=== PATIENT | female | born 1935 | race Caucasian/White ===

== ENCOUNTER 2016-09-18 16:00 | Inpatient (IN) | payer MEDICARE ==
[2016-09-18] MEDS ORDERED: NORCO 5/325 MG PO PRN (16:46)
[2016-09-18] MEDS ORDERED: Phenergan 25 MG INJ IV PRN (16:53)
[2016-09-18] MEDS ORDERED: Sodium Chloride 0.9% 10 ML FLUSH Syringe IJ PRN (16:53)
[2016-09-18 16:57] LABS: BASOPHIL % 0.4 % (0.0-0.4); Eosinophil % 4.6 % (0.00-5.0); Granulocytes % 59.8 % (36.0-66.0); Lymphocytes % 19.1 % (24.0-44.0); Mean Cell Volume 94.1 fl (78-100); Mean Corpuscular Hemoglobin 29.6 pg (26-32); Mean Platelet Volume 9.6 fl (6-9.5); Monocytes % 16.1 % (0.0-12.0); Platelet Count 201 K/mm3 (150-450); Red Blood Count 3.58 M/mm3 (4.1-5.4); White Blood Count 5.7 K/mm3 (4.0-10.5)
[2016-09-18 17:11] LABS: INR 1.03 (0.8-3.0); PROTIME 11.5 SECONDS (9.95-12.35)
[2016-09-18 17:12] LABS: ALBUMIN 3.9 g/dL (3.4-5.0); ANION GAP 12.8 MEQ/L (5-15); BILIRUBIN,TOTAL 0.6 mg/dL (0.2-1.0); Carbon Dioxide 29.9 mEq/L (21-32); Total Protein 7.7 gm/dL (6.4-8.2)
--- NOTE | 2016-09-18 17:22 | XRAY ---
Indication: Cellulitis. Comparison: September 12, 2016 3 nonweightbearing nonweightbearing right foot unchanged again with osteopenia, soft tissue swelling, heel spurs, midtarsal degenerative changes, and scattered vascular calcifications. No new/acute bony, articular, or soft tissue abnormalities.
[2016-09-18] MEDS: CLINDAMYCIN-D5W 600 MG/50 ML*** 50 ML IV SCH ×2 (17:25→22:06)
[2016-09-18] MEDS ORDERED: BABY ASPIRIN 81 MG CHEW PO SCH (22:00)
[2016-09-18] MEDS: PLAVIX 75 MG Tablet PO SCH (22:05)
[2016-09-18] MEDS: Zestril 5 MG PO SCH (22:05)
[2016-09-18] MEDS: FISH OIL 1,000 MG CAPSULE PO SCH (22:05)
[2016-09-18] MEDS: Sodium Chloride 0.9% 10 ML FLUSH Syringe IJ SCH (22:07)
[2016-09-18] MEDS: TYLENOL 325 MG PO PRN (22:20)
[2016-09-19] MEDS: CLINDAMYCIN-D5W 600 MG/50 ML*** 50 ML IV SCH ×3 (05:17→22:57)
[2016-09-19] MEDS: TYLENOL 325 MG PO PRN (05:17)
[2016-09-19] MEDS: Sodium Chloride 0.9% 10 ML FLUSH Syringe IJ SCH ×3 (05:19→23:00)
[2016-09-19] MEDS ORDERED: NON-FORMULARY ITEM (Bumetanide [Bumex] 2 MG) PO PRN (07:09)
--- NOTE | 2016-09-19 08:29 | PCM.HP ---
History of Present Illness - Chief Complaint Chief Complaint: rt foot cellultis Date: 09/19/16 History of Present Illness: is a 81 year old female. slightly better cellulitis today very tender and hot still the redness had receeded some it was worsening over just the last couple of days and she couldn't walk on it was spreading rapidly up her leg. - Review of Systems Constitutional: Fatigue, No Fever, No Chills Eyes: No Symptoms Ears, Nose, & Throat: No Symptoms Respiratory: No Cough, No Short Of Breath Cardiac: No Chest Pain, No Edema, No Syncope Abdominal/Gastrointestinal: No Abdominal Pain, No Nausea, No Vomiting, No Diarrhea Genitourinary Symptoms: No Dysuria Musculoskeletal: No Back Pain, No Neck Pain Skin: Cellulitis, No Rash Neurological: No Dizziness, No Focal Weakness, No Sensory Changes Psychological: No Symptoms Endocrine: No Symptoms Hematologic/Lymphatic: No Symptoms Immunological/Allergic: No Symptoms Medications & Allergies Home Medications: Home Medication List Aspirin 81 mg PO HS 09/18/16 [History Confirmed 09/18/16] Beta-Carotene [Beta Carotene] 10,000 unit PO 09/18/16 [History Confirmed 06/25] Bumetanide [Bumex] 2 mg PO DAILY PRN PRN 09/18/16 [History Confirmed 09/18/16] Carvedilol 12.5 mg [Coreg 12.5 mg] 0.5 mg PO DAILY 09/18/16 [History Confirmed 09/18/16] Cholecalciferol (Vitamin D3) [D-2000] 2,000 unit PO 09/18/16 [History Confirmed 09/18/16] Clopidogrel Bisulfate 75 mg [PLAVIX 75 MG Tablet] 75 mg PO 09/18/16 [ History Confirmed 09/18/16] Herbal Drugs [Colon Herbal Cleanser] 1 tab PO 09/18/16 [History Confirmed 06/25] Lisinopril [Zestril] 2.5 mg PO 09/18/16 [History Confirmed 09/18/16] Lutein 6 mg PO 09/18/16 [History Confirmed 09/18/16] Multivitamin/Iron/Folic Acid [Centrum Complete Multivit Tab] 1 each PO [History Confirmed 09/18/16] [place]-3 Fatty Acids [[place]-3] 1,000 mg PO HS 09/18/16 [History Confirmed ] Prednisone 10 mg [Deltasone 10 mg] 10 mg PO DAILY PRN PRN 09/18/16 [ History Confirmed 09/18/16] Tramadol HCl 50 mg [Ultram 50 mg] 2 tab PO Q8HPRN PRN 09/18/16 [History Confirmed 09/18/16] Ubidecarenone [Co Q-10] 100 mg PO HS 09/18/16 [History Confirmed 09/18/16] Allergies/Adverse Reactions: Allergies Allergy/AdvReac Type Severity Reaction Status Date / Time cephalexin [From Keflex] Allergy Intermediate Verified 09/18/16 16:31 - Past Medical History Past Medical History: Yes Neurological History: Dementia ENT History: Cataracts Cardiac History: Angina, Congestive Heart Failure, Hypertension, Myocardial Infarction ([place]) Respiratory History: Bronchitis Endocrine Medical History: Diabetes Type II Musculoskelatal History: Arthritis, Osteoporosis GI Medical History: Gallbladder Disease, Hernia History: Renal Disease Pyscho-Social History: No Pertinent History Reproductive Disorders: Fibroids Comment: anemia - Female History Are you now?: No - Past Surgical History Past Surgical History: Yes Neuro Surgical History: No Pertinent History Cardiac History: Cardiac Catheterization, Cardiac Stent Respiratory Surgery: No Pertinent History GI Surgical History: Cholecystectomy, Hernia Repair Genitourinary Surgical Hx: No Pertinent History Musculskeletal Surgical Hx: No Pertinent History Female Surgical History: Hysterectomy Other Surgical History: cardic stent x 2 - Social History Smoking Status: Never smoker Alcohol: None Drug Use: none - Physical Exam Vital Signs: Vital Signs - 24 hr Temp Pulse Resp BP Pulse Ox 09/19/16 07:20 97.8 F 80 18 118/64 96 09/19/16 04:00 98.3 F 75 20 113/56 95 09/19/16 00:00 98.7 F 75 20 91/53 95 09/18/16 20:00 98.5 F 80 16 96/52 97 09/18/16 17:43 98 F 85 18 113/57 94 L 09/18/16 16:41 98 F 85 18 113/57 94 L General Appearance: no apparent distress, alert, obese Neurologic Exam: alert, oriented x 3, cooperative, normal mood/affect, nml cerebellar function, nml station & gait, sensation nml, No motor deficits Eye Exam: PERRL/EOMI, eyes nml inspection Ears, Nose, Throat Exam: normal ENT inspection, TMs normal, pharynx normal, moist mucous membranes Neck Exam: normal inspection, non-tender, supple, full range of motion Respiratory Exam: normal breath sounds, lungs clear, No respiratory distress Cardiovascular Exam: regular rate/rhythm, normal heart sounds, normal peripheral pulses, murmur Gastrointestinal/Abdomen Exam: soft, normal bowel sounds, No tenderness, No mass Back Exam: normal inspection, normal range of motion, No CVA tenderness, No vertebral tenderness Extremity Exam: normal inspection, normal range of motion, pelvis stable Skin Exam: normal color, warm, dry, other (right foot with bruising swelling warm and tender. about 8 cm extension proximal to the malleolus) Lymphatic Exam: No adenopathy Results - Labs Lab/Micro Results: Lab Results-Last 24 Hours 09/18/16 09/18/16 09/18/16 Range/Units 16:00 16:00 16:00 WBC 5.7 (4.0-10.5) K/mm3 RBC 3.58 L (4.1-5.4) M/mm3 Hgb 10.6 L (12.0-16.0) gm/dl Hct 33.7 L (35-47) % MCV 94.1 (78-100) fl MCH 29.6 (26-32) pg MCHC 31.5 L (32-36) g/dl RDW 14.0 (11.5-14.0) % Plt Count 201 (150-450) K/mm3 MPV 9.6 H (6-9.5) fl Gran % 59.8 (36.0-66.0) % Lymphocytes % 19.1 L (24.0-44.0) % Monocytes % 16.1 H (0.0-12.0) % Eosinophils % 4.6 (0.00-5.0) % Basophils % 0.4 (0.0-0.4) % Basophils # 0.02 (0-0.4) INR 1.03 (0.8-3.0) Sodium 138 (136-145) mEq/L Potassium 4.0 (3.5-5.1) mEq/L Chloride 99 (98-107) mEq/L Carbon Dioxide 29.9 (21-32) mEq/L Anion Gap 12.8 (5-15) MEQ/L BUN 36 H (9-20) mg/dL Creatinine 1.50 H (0.55-1.30) mg/dl Estimated GFR 35 ML/MIN Glucose 104 (70-110) MG/DL Calcium 9.0 (8.5-10.1) mg/dL Total Bilirubin 0.6 (0.2-1.0) mg/dL AST 21 (15-37) U/L ALT 13 (12-78) U/L Alkaline Phosphatase 88 (46-116) U/L Serum Total Protein 7.7 (6.4-8.2) gm/dL Albumin 3.9 (3.4-5.0) g/dL - Radiology Impressions Radiology Exams & Impressions: Radiology Procedures Category Date Time Status FOOT (MINIMUM 3 VIEWS) Routine Exams 09/18/16 17:00 Completed Assessment/Plan (1) Cellulitis and abscess of foot Current Visit: Yes Status: Acute Assessment & Plan: continue the clindamycin and elevation IV if continues to improve may be able to go home tomorrow on oral if worsens change to vanc Code(s): L03.119 - CELLULITIS OF UNSPECIFIED PART OF LIMB; L02.619 - CUTANEOUS ABSCESS OF UNSPECIFIED FOOT (2) CKD (chronic kidney disease) Current Visit: Yes Status: Chronic Code(s): N18.9 - CHRONIC KIDNEY DISEASE, UNSPECIFIED (3) CHF (congestive heart failure) Current Visit: Yes Status: Chronic Code(s): I50.9 - HEART FAILURE, UNSPECIFIED (4) HTN (hypertension) Current Visit: Yes Status: Chronic Code(s): I10 - ESSENTIAL (PRIMARY) HYPERTENSION (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
[2016-09-19] MEDS: Coreg 6.25 MG PO SCH (09:26)
[2016-09-19] MEDS: THERAGRAN MULTIVITAMIN PO SCH (09:26)
[2016-09-19] MEDS: ULTRAM 50 MG PO PRN ×3 (09:27→23:01)
[2016-09-19] MEDS ORDERED: COREG 12.5 MG PO SCH (10:00)
[2016-09-19] MEDS: MEDICATION INTERVENTION MC SCH ×4 (12:01→12:02)
[2016-09-19] MEDS ORDERED: NON-FORMULARY ITEM (Cholecalciferol (Vitamin D3) [D3-2000] 2,000 UNIT) PO SCH (22:00)
[2016-09-19] MEDS ORDERED: UBIDECARENONE 100 MG PO SCH (22:00)
[2016-09-19] MEDS ORDERED: [UNRECOGNIZED DRUG - OTHER] PO SCH (22:00)
[2016-09-19] MEDS ORDERED: LUTEIN 6 MG PO SCH (22:00)
[2016-09-19] MEDS ORDERED: IRON PO SCH (22:00)
[2016-09-19] MEDS ORDERED: BETA CAROTENE 10000 UNIT PO SCH (22:00)
[2016-09-19] MEDS ORDERED: MULTIVITAMIN PO SCH (22:00)
[2016-09-19] MEDS ORDERED: FOLIC ACID PO SCH (22:00)
[2016-09-19] MEDS ORDERED: HERBAL DRUGS PO SCH (22:00)
[2016-09-19] MEDS: FISH OIL 1,000 MG CAPSULE PO SCH (22:57)
[2016-09-19] MEDS: ECOTRIN 81 MG PO SCH (22:57)
[2016-09-19] MEDS: PLAVIX 75 MG Tablet PO SCH (22:58)
[2016-09-19] MEDS: Zestril 5 MG PO SCH (23:00)
[2016-09-19] MEDS: VITAMIN D PO SCH (23:00)
[2016-09-20] MEDS: Sodium Chloride 0.9% 10 ML FLUSH Syringe IJ SCH ×3 (06:10→21:42)
[2016-09-20] MEDS: CLINDAMYCIN-D5W 600 MG/50 ML*** 50 ML IV SCH ×3 (06:10→21:41)
[2016-09-20] MEDS: ULTRAM 50 MG PO PRN ×3 (06:10→21:43)
[2016-09-20] MEDS ORDERED: XYLOCAINE 1% HCL 20 ML MDV IJ ONE (09:01)
[2016-09-20] MEDS: MORPHINE SULFATE 2 MG INJ IV PRN (09:34)
[2016-09-20] MEDS: THERAGRAN MULTIVITAMIN PO SCH (09:45)
[2016-09-20] MEDS: BUMEX 1 MG PO PRN (09:45)
[2016-09-20] MEDS: Coreg 6.25 MG PO SCH (09:45)
[2016-09-20] MEDS: MEDICATION INTERVENTION MC SCH ×4 (09:48→09:49)
--- NOTE | 2016-09-20 10:09 | PCM.NOTE ---
Date and Time: 09/20/16 1005 Subjective Assessment: the pain on the top of the right foot is still very severe but the pain on the bottom and up the leg is much better swelling is improving except on the top of the foot tolerating po better now Objective Exam General Appearance: no apparent distress Neurologic Exam: alert, oriented x 3, cooperative, normal mood/affect Skin Exam: warm, dry, other (right foot with warmth redness bruising and fluctuant area of tendenress on the dorsal aspect about 4cm X2 cm very tender) Neck Exam: non-tender, supple Respiratory Exam: normal breath sounds, lungs clear Cardiovascular Exam: regular rate/rhythm, normal peripheral pulses, murmur Gastrointestinal/Abdomen Exam: soft, normal bowel sounds, No tenderness Extremity Exam: No calf tenderness OBJECTIVE DATA Vital Signs: Vital Signs - 24 hr Temp Pulse Resp BP Pulse Ox 09/20/16 07:20 98.2 F 71 20 117/59 95 09/20/16 04:00 98.2 F 79 20 98/56 96 09/20/16 00:00 97.8 F 93 H 20 100/54 95 09/19/16 20:00 97.9 F 104 H 18 95/46 95 09/19/16 15:54 98.3 F 88 20 114/58 97 09/19/16 12:41 97.8 F 80 20 111/54 97 09/19/16 11:51 84 111/54 Pain Assessment - Last Documented Pain Intensity 4 Pain Scale Used 0-10 Pain Scale Intake and Output: Intake & Output 09/17/16 09/18/16 09/19/16 09/20/16 11:59 11:59 11:59 11:59 Intake Total 610 760 Output Total 600 Balance 10 760 Weight 91.654 kg Radiology Exams: Radiology Procedures Category Date Time Status FOOT (MINIMUM 3 VIEWS) Routine Exams 09/18/16 17:00 Completed Assessment/Plan (1) Cellulitis and abscess of foot Current Visit: Yes Status: Acute Assessment & Plan: right foot with apparent infected hematoma discussed options with patient area was cleaned with Hibiclens and anesthetized with 3 mL of 1% lidocaine and sterile technique used to make incision about 1.5 cm with 11 blade and expressed old and new bloody material. The cavity was explored as tolerated with curved hemostat with removal of parts of the hematoma. The full hematoma was not excised as concern with her being able to heal with a large incision. Culture of wound was sent. Sterile pressure dressing applied. Tolerated procedure well. continue clindamycin IV keep foot elevated. 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
[2016-09-20] MEDS: FISH OIL 1,000 MG CAPSULE PO SCH (21:42)
[2016-09-20] MEDS: VITAMIN D PO SCH (21:42)
[2016-09-20] MEDS: ECOTRIN 81 MG PO SCH (21:42)
[2016-09-20] MEDS: PLAVIX 75 MG Tablet PO SCH (21:42)
[2016-09-20] MEDS: Zestril 5 MG PO SCH (21:43)
[2016-09-21] MEDS: ULTRAM 50 MG PO PRN ×3 (04:31→20:59)
[2016-09-21] MEDS: CLINDAMYCIN-D5W 600 MG/50 ML*** 50 ML IV SCH ×3 (05:26→22:41)
[2016-09-21] MEDS: Sodium Chloride 0.9% 10 ML FLUSH Syringe IJ SCH ×2 (05:31→22:48)
[2016-09-21] MEDS: MORPHINE SULFATE 2 MG INJ IV PRN (08:55)
[2016-09-21] MEDS: THERAGRAN MULTIVITAMIN PO SCH (08:55)
[2016-09-21] MEDS: Coreg 6.25 MG PO SCH (08:55)
[2016-09-21] MEDS: MEDICATION INTERVENTION MC SCH ×4 (08:58→08:59)
--- NOTE | 2016-09-21 13:23 | PCM.NOTE ---
Date and Time: 09/21/16 1319 Subjective Assessment: the redness a little better the pain a little better she is still in severe pain in the foot difficulty attemptint to ambulate she was able to keep it wrapped some bloody drainage minimal now. the swelling is improving just a little after the I and D Objective Exam General Appearance: no apparent distress, obese Neurologic Exam: alert, oriented x 3, cooperative Skin Exam: warm, other (Hot red very tender top of the foot but no redness in the ankle now it is very tender minimal amount of bleeding from the inciison now ) Eye Exam: pale conjunctivae, No scleral icterus Neck Exam: non-tender, supple Respiratory Exam: normal breath sounds Cardiovascular Exam: regular rate/rhythm, normal heart sounds Gastrointestinal/Abdomen Exam: soft, normal bowel sounds, tenderness Extremity Exam: pedal edema (right) OBJECTIVE DATA Vital Signs: Vital Signs - 24 hr Temp Pulse Resp BP Pulse Ox 09/21/16 12:56 98.3 F 78 20 114/68 96 09/21/16 07:15 98.2 F 76 20 112/68 96 09/21/16 05:00 104/56 09/21/16 04:00 98.4 F 80 18 87/52 96 09/21/16 00:00 98.3 F 77 18 132/59 95 09/20/16 20:00 98.3 F 80 18 96/51 94 L 09/20/16 16:09 98.3 F 60 20 101/55 94 L Pain Assessment - Last Documented Pain Intensity 8 Pain Scale Used 0-10 Pain Scale Intake and Output: Intake & Output 09/19/16 09/20/16 09/21/16 09/22/16 11:59 11:59 11:59 11:59 Intake Total 610 1000 760 Output Total 600 600 700 Balance 10 400 60 Weight 91.654 kg Assessment/Plan (1) Cellulitis and abscess of foot Current Visit: Yes Status: Acute Assessment & Plan: awaiting the wound culture very slow improvement she still can barely walk and lives at home alone unable to care for herself right now each day has shown a little improvement keep elevated stay with clinda pending the culture. 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
[2016-09-21] MEDS: FISH OIL 1,000 MG CAPSULE PO SCH (22:41)
[2016-09-21] MEDS: VITAMIN D PO SCH (22:41)
[2016-09-21] MEDS: PLAVIX 75 MG Tablet PO SCH (22:41)
[2016-09-21] MEDS: DELTASONE 10 MG PO PRN (22:41)
[2016-09-21] MEDS: Zestril 5 MG PO SCH (22:42)
[2016-09-21] MEDS: ECOTRIN 81 MG PO SCH (22:42)
[2016-09-22] MEDS: ULTRAM 50 MG PO PRN ×2 (04:35→10:30)
[2016-09-22] MEDS: CLINDAMYCIN-D5W 600 MG/50 ML*** 50 ML IV SCH (06:24)
[2016-09-22] MEDS: Sodium Chloride 0.9% 10 ML FLUSH Syringe IJ SCH (06:24)
[2016-09-22 08:56] VITALS: O2SAT 97
[2016-09-22] MEDS: Coreg 6.25 MG PO SCH (09:43)
[2016-09-22] MEDS: THERAGRAN MULTIVITAMIN PO SCH (09:44)
[2016-09-22] MEDS: DELTASONE 10 MG PO PRN (09:51)
[2016-09-22] MEDS: BUMEX 1 MG PO PRN (09:51)
[2016-09-22] MEDS: MEDICATION INTERVENTION MC SCH ×4 (10:52→10:53)
--- NOTE | 2016-09-22 11:34 | PCM.DCORD ---
- Discharge Discharge Date: 09/22/16 Disposition: Home, Self-Care Condition: Stable Prescriptions: Clindamycin HCl 300 mg PO QID #40 capsule Medications: Home Medications Aspirin 81 mg PO HS 09/18/16 [Confirmed 09/18/16] Beta-Carotene [Beta Carotene] 10,000 unit PO HS 09/18/16 [Confirmed 09/18/16] Bumetanide [Bumex] 1 mg PO DAILY 09/18/16 [Confirmed 09/22/16] Carvedilol 12.5 mg [Coreg 12.5 mg] 0.5 mg PO DAILY 09/18/16 [Confirmed 06/25] Cholecalciferol (Vitamin D3) [D-2000] 2,000 unit PO HS 09/18/16 [Confirmed 09/18] Clopidogrel Bisulfate 75 mg [PLAVIX 75 MG Tablet] 75 mg PO HS 09/18/16 [ Confirmed 09/18/16] Herbal Drugs [Colon Herbal Cleanser] 1 tab PO HS 09/18/16 [Confirmed 09/18/16] Lisinopril [Zestril] 2.5 mg PO HS 09/18/16 [Confirmed 09/18/16] Lutein 6 mg PO 09/18/16 [Confirmed 09/18/16] Multivitamin/Iron/Folic Acid [Centrum Complete Multivit Tab] 1 each PO HS [Confirmed 09/18/16] [place]-3 Fatty Acids [[place]-3] 1,000 mg PO 09/18/16 [Confirmed 09/18/16] Prednisone 10 mg [Deltasone 10 mg] 10 mg PO DAILY PRN PRN 09/18/16 [ Confirmed 09/18/16] Tramadol HCl 50 mg [Ultram 50 mg] 2 tab PO Q8HPRN PRN 09/18/16 [Confirmed 09/18/16] Ubidecarenone [Co Q-10] 100 mg PO HS 09/18/16 [Confirmed 09/18/16] Active Inpatient Medications Acetaminophen (Tylenol 325 Mg) 650 mg PO Q4H/PRN PRN PRN Reason: TEMP >101 Stop: 10/18/16 16:52 Last Admin: 09/19/16 05:17 Dose: 650 mg Aspirin (Ecotrin 81 Mg) 81 mg PO [facility] Stop: 10/19/16 21:59 Last Admin: 09/21/16 22:42 Dose: 81 mg Bumetanide (Bumex 1 Mg) 2 mg PO DAILY PRN PRN PRN Reason: SWELLING Stop: 10/19/16 07:16 Last Admin: 09/22/16 09:51 Dose: 1 mg Carvedilol (Coreg 6.25 Mg) 6.25 mg PO DAILY [facility] Stop: 10/19/16 09:59 Last Admin: 09/22/16 09:43 Dose: 6.25 mg Cholecalciferol (Vitamin D) 2,000 unit PO [facility] Stop: 10/19/16 21:59 Last Admin: 09/21/16 22:41 Dose: 2,000 unit Clopidogrel Bisulfate (Plavix 75 Mg Tablet) 75 mg PO [facility] Stop: 10/18/16 21:59 Last Admin: 09/21/16 22:41 Dose: 75 mg Fish Oil (Fish Oil 1,000 Mg Capsule) 1,000 mg PO [facility] Stop: 10/18/16 21:59 Last Admin: 09/21/16 22:41 Dose: 1,000 mg Clindamycin HCl/Dextrose (Clindamycin-D5w 600 Mg/50 Ml) 50 mls @ 100 mls/hr IV Q8HT [facility] Stop: 10/18/16 16:59 Last Admin: 09/22/16 06:24 Dose: 100 mls/hr Lisinopril (Zestril 5 Mg) 2.5 mg PO [facility] Stop: 10/18/16 21:59 Last Admin: 09/21/16 22:42 Dose: 2.5 mg Morphine Sulfate (Morphine Sulfate 2 Mg Inj) 2 mg IV Q2HPRN PRN PRN Reason: SEVERE PAIN Stop: 09/23/16 16:46 Last Admin: 09/21/16 08:55 Dose: 2 mg Multivitamins (Theragran Multivitamin) 1 tab PO DAILY [facility] Stop: 10/19/16 09:59 Last Admin: 09/22/16 09:44 Dose: 1 tab Prednisone (Deltasone 10 Mg) 10 mg PO DAILY PRN PRN PRN Reason: knees Stop: 10/19/16 07:08 Last Admin: 09/22/16 09:51 Dose: 10 mg Promethazine HCl (Phenergan 25 Mg Inj) 12.5 mg IV Q6H/PRN PRN PRN Reason: NAUSEA/VOMITING Stop: 10/18/16 16:52 Sodium Chloride (Sodium Chloride 0.9% 10 Ml Flush Syringe) 10 ml IJ QSHIFT PRN Stop: 10/18/16 16:52 Sodium Chloride (Sodium Chloride 0.9% 10 Ml Flush Syringe) 10 ml IJ Q8HT [facility] Stop: 10/18/16 21:59 Last Admin: 09/22/16 06:24 Dose: 10 ml Tramadol HCl (Ultram 50 Mg) 100 mg PO QID PRN PRN PRN Reason: PAIN Stop: 10/19/16 08:30 Last Admin: 09/22/16 10:30 Dose: 100 mg Follow up with: PEGGY VIRK [Primary Care Provider] - 09/28/16 11:00 am Forms: Patient Portal Information
--- NOTE | 2016-09-22 11:34 | PCM.DS ---
Discharge Summary Date of Admission: 09/20/16 10:00 Date of Discharge: 09/22/16 Admitting Physician: PEGGY VIRK Primary Care Provider: PEGGY VIRK Allergies Allergies cephalexin [From Keflex] Allergy (Intermediate, Verified 09/18/16 16:31) headache swelling Hospital Summary - Hospital Course Hospital Course: A few weeks prior to presentation she dropped a heavy object on her right foot with severe pain and bruising it was slowly healing x-ray negative for fractures then suddenly it became red, very painful, hot and the redness was creeping up the right leg almost to the knee very quickly. She presented to see Diana Julien and was direct admitted by Dr. De León for severe cellulites with rapid progression and pain inability to walk. X-ray again negative for infection. She was placed on iv clindamycin and showed steady improvement. There was a localized large area on the right dorsal aspect of the foot that was incised and drained dark bloody clot. The wound culture had gram + on the stain but no growth thus far. She was keeping it elevated and slowly able to increase her elevation. It was showing slow improvement and finally on the day of discharge was looking much less red still with swelling and bruising and an area of the hematoma that was not fully drained left on the right foot. She was discharged to home to complete coarse of po clinda. - Vitals & Intake/Output Vital Signs: Vital Signs Temperature 97.7 F 09/22/16 08:56 Pulse Rate 84 09/22/16 08:56 Respiratory Rate 18 09/22/16 08:56 Blood Pressure 93/54 09/22/16 08:56 O2 Sat by Pulse Oximetry 97 09/22/16 08:56 Intake & Output: Intake & Output 09/19/16 09/20/16 09/21/16 09/22/16 11:59 11:59 11:59 11:59 Intake Total 610 1000 760 768 Output Total 600 600 700 Balance 10 400 60 768 Weight 91.654 kg - Lab Result Diagrams: 09/18/16 16:00 09/18/16 16:00 Micro Results-Entire Visit: Microbiology 09/20/16 09:45 Gram Stain - Final Foot - Right Top Wound Culture - Preliminary NO GROWTH TO DATE - Procedures and Test Procedures and Tests throughout Hospitalization: Therapy Orders & Screens 09/18/16 16:44 PT Eval & Treat (MD Order) ROUTINE Evaluate: Yes Treat: Yes Reason for Eval:: Right foot cellulitis/pain Discharge Exam General Appearance: no apparent distress, obese Neurologic Exam: alert, oriented x 3, cooperative Skin Exam: warm, dry Eye Exam: No scleral icterus Ears, Nose, Throat Exam: pharynx normal, moist mucous membranes Neck Exam: normal inspection, non-tender, supple Respiratory Exam: normal breath sounds, No chest tenderness, No respiratory distress Cardiovascular Exam: regular rate/rhythm, normal heart sounds Gastrointestinal/Abdomen Exam: soft, normal bowel sounds, No tenderness Extremity Exam: other (right foot with the hematoma that was not fully drained still with bloody drainage from the I and D site but the swelling is much improved and the redness is improved she is still very tender but this is improving as well. 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 Status: Chronic - Discharge Disposition: Home, Self-Care Condition: Stable Prescriptions: Clindamycin HCl 300 mg PO QID #40 capsule Medications: Home Medications Aspirin 81 mg PO HS 09/18/16 [Confirmed 09/18/16] Beta-Carotene [Beta Carotene] 10,000 unit PO HS 09/18/16 [Confirmed 09/18/16] Bumetanide [Bumex] 1 mg PO DAILY 09/18/16 [Confirmed 09/22/16] Carvedilol 12.5 mg [Coreg 12.5 mg] 0.5 mg PO DAILY 09/18/16 [Confirmed 06/25] Cholecalciferol (Vitamin D3) [D3-2000] 2,000 unit PO HS 09/18/16 [Confirmed 06/25] Clopidogrel Bisulfate 75 mg [PLAVIX 75 MG Tablet] 75 mg PO HS 09/18/16 [ Confirmed 09/18/16] Herbal Drugs [Colon Herbal Cleanser] 1 tab PO HS 09/18/16 [Confirmed 09/18/16] Lisinopril [Zestril] 2.5 mg PO 09/18/16 [Confirmed 09/18/16] Lutein 6 mg PO HS 09/18/16 [Confirmed 09/18/16] Multivitamin/Iron/Folic Acid [Centrum Complete Multivit Tab] 1 each PO [Confirmed 09/18/16] [place]-3 Fatty Acids [[place]-3] 1,000 mg PO HS 09/18/16 [Confirmed 09/18/16] Prednisone 10 mg [Deltasone 10 mg] 10 mg PO DAILY PRN PRN 09/18/16 [ Confirmed 09/18/16] Tramadol HCl 50 mg [Ultram 50 mg] 2 tab PO Q8HPRN PRN 09/18/16 [Confirmed 09/18/16] Ubidecarenone [Co Q-10] 100 mg PO HS 09/18/16 [Confirmed 09/18/16] Clindamycin HCl 300 mg PO QID #40 capsule 09/22/16 Active Inpatient Medications Acetaminophen (Tylenol 325 Mg) 650 mg PO Q4H/PRN PRN PRN Reason: TEMP >101 Stop: 10/18/16 16:52 Last Admin: 09/19/16 05:17 Dose: 650 mg Aspirin (Ecotrin 81 Mg) 81 mg PO [facility] Stop: 10/19/16 21:59 Last Admin: 09/21/16 22:42 Dose: 81 mg Bumetanide (Bumex 1 Mg) 2 mg PO DAILY PRN PRN PRN Reason: SWELLING Stop: 10/19/16 07:16 Last Admin: 09/22/16 09:51 Dose: 1 mg Carvedilol (Coreg 6.25 Mg) 6.25 mg PO DAILY [facility] Stop: 10/19/16 09:59 Last Admin: 09/22/16 09:43 Dose: 6.25 mg Cholecalciferol (Vitamin D) 2,000 unit PO [facility] Stop: 10/19/16 21:59 Last Admin: 09/21/16 22:41 Dose: 2,000 unit Clopidogrel Bisulfate (Plavix 75 Mg Tablet) 75 mg PO [facility] Stop: 10/18/16 21:59 Last Admin: 09/21/16 22:41 Dose: 75 mg Fish Oil (Fish Oil 1,000 Mg Capsule) 1,000 mg PO HS [facility] Stop: 10/18/16 21:59 Last Admin: 09/21/16 22:41 Dose: 1,000 mg Clindamycin HCl/Dextrose (Clindamycin-D5w 600 Mg/50 Ml) 50 mls @ 100 mls/hr IV Q8HT [facility] Stop: 10/18/16 16:59 Last Admin: 09/22/16 06:24 Dose: 100 mls/hr Lisinopril (Zestril 5 Mg) 2.5 mg PO HS [facility] Stop: 10/18/16 21:59 Last Admin: 09/21/16 22:42 Dose: 2.5 mg Morphine Sulfate (Morphine Sulfate 2 Mg Inj) 2 mg IV Q2HPRN PRN PRN Reason: SEVERE PAIN Stop: 09/23/16 16:46 Last Admin: 09/21/16 08:55 Dose: 2 mg Multivitamins (Theragran Multivitamin) 1 tab PO DAILY [facility] Stop: 10/19/16 09:59 Last Admin: 09/22/16 09:44 Dose: 1 tab Prednisone (Deltasone 10 Mg) 10 mg PO DAILY PRN PRN PRN Reason: knees Stop: 10/19/16 07:08 Last Admin: 09/22/16 09:51 Dose: 10 mg Promethazine HCl (Phenergan 25 Mg Inj) 12.5 mg IV Q6H/PRN PRN PRN Reason: NAUSEA/VOMITING Stop: 10/18/16 16:52 Sodium Chloride (Sodium Chloride 0.9% 10 Ml Flush Syringe) 10 ml IJ QSHIFT PRN Stop: 10/18/16 16:52 Sodium Chloride (Sodium Chloride 0.9% 10 Ml Flush Syringe) 10 ml IJ Q8HT [facility] Stop: 10/18/16 21:59 Last Admin: 09/22/16 06:24 Dose: 10 ml Tramadol HCl (Ultram 50 Mg) 100 mg PO QID PRN PRN PRN Reason: PAIN Stop: 10/19/16 08:30 Last Admin: 09/22/16 10:30 Dose: 100 mg Instructions: Cellulitis -- Adult Follow up with: PEGGY VIRK [Primary Care Provider] - 09/28/16 11:00 am Forms: Discharge Instructions, Discharge Skin Assessment, Patient Portal Information
[2016-09-22 12:11] VITALS: BP 94/63; PULSE 79
== END 2016-09-22 13:50 | disposition home or self-care (01) | DRG 603 ==
LOC: MED SURG 16:16 → OBSVTOIN 09-20 10:00
PROVIDERS: ADMIT Family Medicine; ATTEND Family Medicine
DX: L03.115 Cellulitis of right lower limb (principal); L02.611 Cutaneous abscess of right foot; I50.32 Chronic diastolic (congestive) heart failure; I12.9 Hypertensive chronic kidney disease with stage 1 through stage 4 chronic kidney disease, or unspecified chronic kidney disease; N18.9 Chronic kidney disease, unspecified; E11.59 Type 2 diabetes mellitus with other circulatory complications; I70.209 Unspecified atherosclerosis of native arteries of extremities, unspecified extremity; F03.90 Unspecified dementia, unspecified severity, without behavioral disturbance, psychotic disturbance, mood disturbance, and anxiety; M19.90 Unspecified osteoarthritis, unspecified site; M81.0 Age-related osteoporosis without current pathological fracture; D64.9 Anemia, unspecified; Z79.899 Other long term (current) drug therapy; I25.2 Old myocardial infarction
CPT/HCPCS: 36415; 73630; 80053; 85025; 85610; 87070; G0378; J2270; J7506

== ENCOUNTER 2019-01-10 09:46 | Emergency (ER) | payer MEDICARE ==
--- NOTE | 2019-01-10 10:15 | ERPHSYRPT ---
- History of Present Illness Time Seen by Provider: 01/10/19 10:12 Source: patient Exam Limitations: no limitations Patient Subjective Stated Complaint: states fell out of wheelchair at home after falling asleep. struck forehead on hardwood floor. lives alone and had to call someone to get help up. states she noted bleeding from forehead. denies loc. does take plavix and aspirin. Triage Nursing Assessment: to room per ems cot. lifted to er bed. skin w/d, color normal. has 4x2cm and 3x1cm lac/skin tear to left side of forehead with minimal bleeding at this time. also has 6cm bruised noted to left elbow. denies any other injury at this time. Physician History: 83 years old female bought in to Er by ambulance states fell out of wheelchair at home after falling asleep. struck forehead on hardwood floor. lives alone and had to call someone to get help up. states she noted bleeding from forehead. denies loc. does take plavix and aspirin. Occurred: just prior to arrival Head Injury Location: frontal Method of Injury: fell Loss of Consciousness: no loss of consciousness Associated Symptoms: denies symptoms Allergies/Adverse Reactions: cephalexin [From Keflex] Allergy (Intermediate, Verified 01/10/19 10:20) headache swelling Home Medications: Aspirin 81 mg PO HS 09/18/16 [History] Beta-Carotene [Beta Carotene] 10,000 unit PO HS 09/18/16 [History] Carvedilol 12.5 mg [Coreg 12.5 mg] 0.5 mg PO DAILY 09/18/16 [History] Cholecalciferol (Vitamin D3) [D3-1999] 2,000 unit PO HS 09/18/16 [History] Clopidogrel Bisulfate 75 mg [PLAVIX 75 MG Tablet] 75 mg PO HS 09/18/16 [ History] Herbal Drugs [Colon Herbal Cleanser] 1 tab PO HS 09/18/16 [History] Lutein 6 mg PO HS 09/18/16 [History] Multivitamin/Iron/Folic Acid [Centrum Complete Multivit Tab] 1 each PO HS [History] [place]-3 Fatty Acids [[place]-3] 1,000 mg PO HS 09/18/16 [History] Tramadol HCl 50 mg [Ultram 50 mg] 2 tab PO Q8HPRN PRN 09/18/16 [History] Ubidecarenone [Co Q-10] 100 mg PO HS 09/18/16 [History] Bumetanide 1 mg [Bumex 1 mg] 1 mg PO DAILY PRN PRN 09/22/16 [History] Hx Tetanus, Diphtheria Vaccination/Date Given: No Hx Influenza Vaccination/Date Given: No Hx Pneumococcal Vaccination/Date Given: Yes - Review of Systems Constitutional: No Fever, No Chills Eyes: No Symptoms Ears, Nose, & Throat: No Symptoms Respiratory: No Cough, No Dyspnea Cardiac: No Chest Pain, No Edema, No Syncope Abdominal/Gastrointestinal: No Abdominal Pain, No Nausea, No Vomiting, No Diarrhea Genitourinary Symptoms: No Dysuria Musculoskeletal: Fall, No Back Pain, No Neck Pain Skin: No Rash Neurological: No Dizziness, No Focal Weakness, No Sensory Changes Psychological: No Symptoms Endocrine: No Symptoms All Other Systems: Reviewed and Negative - Past Medical History Pertinent Past Medical History: Yes Neurological History: Dementia ENT History: Cataracts Cardiac History: Angina, Congestive Heart Failure, Hypertension, Myocardial Infarction ([place]) Respiratory History: Bronchitis Endocrine Medical History: Diabetes Type II Musculoskeletal History: Arthritis, Osteoporosis GI Medical History: Gallbladder Disease, Hernia History: Renal Disease Psycho-Social History: No Pertinent History Female Reproductive Disorders: Fibroids Other Medical History: anemia - Past Surgical History Past Surgical History: Yes Neuro Surgical History: No Pertinent History Cardiac: Cardiac Catheterization, Cardiac Stent Respiratory: No Pertinent History Gastrointestinal: Cholecystectomy, Hernia Repair Genitourinary: No Pertinent History Musculoskeletal: No Pertinent History Female Surgical History: Hysterectomy Other Surgical History: cardic stent x 2 - Social History Smoking Status: Former smoker Exposure to second hand smoke: No Drug Use: none Patient Lives Alone: Yes - Nursing Vital Signs Nursing Vital Signs: Initial Vital Signs Temperature 98 F 01/10/19 09:51 Pulse Rate 87 01/10/19 09:51 Respiratory Rate 16 01/10/19 09:51 Blood Pressure 116/93 01/10/19 09:51 O2 Sat by Pulse Oximetry 98 01/10/19 09:51 Pain Scale Pain Intensity 2 - [place] Coma Score Best Eye Response ([place]): (4) open spontaneously Best Verbal Response ([place]ennifer): (5) oriented Best Motor Response ([place]ennifer): (6) obeys commands Jennifer Total: 15 - Physical Exam General Appearance: no apparent distress, alert Head Injury: contusions, ecchymosis, flap, lacerations, swelling, tenderness, No active bleeding, No Cho's Sign, No raccoon eyes Eye Exam: bilateral eye: PERRL, EOMI ENT Exam: airway nml Cardiovascular/Respiratory Exam: chest non-tender, normal breath sounds, regular rate/rhythm Gastrointestinal/Abdominal Exam: soft, non tender, no distention Back Exam: normal inspection, No vertebral tenderness Extremity Exam: non-tender, normal range of motion, normal inspection Mental Status Exam: alert, oriented x 3, cooperative Motor/Sensory Exam: no motor deficit, no sensory deficit, CN II-XII intact Skin Exam: normal color, warm, dry, No rash SpO2: 98 Procedures - Laceration/Wound Repair Head Wound Location: forehead Wound's Depth, Shape: superficial, flap, contused tissue Wound Explored: clean Irrigated: Yes Hibiclens Prep: Yes Sterile Dressing Applied?: Yes - Course Nursing assessment & vital signs reviewed: Yes - CT Exams Head CT Interpretation: Tele-radiologist Report, No/Intracranial Hemorrhag Ordered Tests: Active Orders 24 hr Category Date Time Status HEAD WITHOUT CONTRAST [CT] Stat Exams 01/10/19 10:03 Taken - Progress Progress: improved Counseled pt/family regarding: diagnosis, need for follow-up, rad results - Departure Departure Disposition: Home Clinical Impression: Laceration of forehead without complication Qualifiers: Encounter type: initial encounter Qualified Code(s): S01.81XA - Laceration without foreign body of other part of head, initial encounter Fall from chair Qualifiers: Encounter type: initial encounter Qualified Code(s): W07.XXXA - Fall from chair , initial encounter Condition: Stable Critical Care Time: No Referrals: ALIZA CARRILLO [Primary Care Provider] - Instructions: Contusion (DC), Preventing Falls, Minor Head Injury (DC) Additional Instructions: ROGE YUAN JAMAR was seen on 01/10/19 n the Emergency Room. At that time you were treated for an emergent condition, during your visit Laboratory, Radiology and/or other procedures may have been ordered. It is very important that you follow-up with your Primary Care Physician ALIZA CARRILLO within the next 24-48 hours to review your Emergency Room visit and the final results of testing that was ordered. Some test results such as Urine Cultures, Blood Cultures, and other cultures if ordered will not be finalized for 24-48 hours. If you do not have a Primary Care Provider please call the medical records department at [phone] ext [phone] to obtain a copy of your results or you may sign into our patient portal to obtain these results by visiting us @ [email or web address] and completing the following steps: 1. Click on the Patient Portal link 2. Click the Patient Self Enrollment Link to complete the enrollment form and entering your 3. Once the enrollment form is completed you will receive an email with a temporary ID and password at the email address you provided. 4. Next choose a user name and password. Your user name must be at least 4 characters long and your password must be at least 4 characters long. 5. Choose a security question from the list and provide your answer to the question. If you already have signed into the Health Portal you may access your Health Care Information 01/04 by the following steps: 1. Login to our website @ [email or web address] 2. Enter your original user name and password. FAQS The [facility] Health Portal is an online tool that contains your Lab Results, Radiology Reports, Visit History, Discharge Instructions and Health Summary Lab and Radiology Results will not be available for 72 hours on the portal. The Portal is a secure site, passwords are encryted and URLs are re-written so they cannot be copied and pasted. You and authorized family members are the only ones who can access your Portal. Also there is a timeout feature that protects your information if you leave the Portal page open. If you have technical difficulty please use the Contact Us link on the page this will allow you to submit any questions you have regarding the Portal or you may contact the Medical Record Department at [phone] ext [phone].
[2019-01-10 11:43] VITALS: BP 119/55; PULSE 84
[2019-01-10 11:44] VITALS: O2SAT 99
--- NOTE | 2019-01-10 20:41 | XRAY ---
Indication: Scalp laceration following fall. Multiple contiguous axial images obtained through the head without contrast. Comparison: None Age-appropriate global atrophy and minimal periventricular degenerative micro-ischemia bilaterally. No acute intracranial hemorrhage, abnormal extra-axial fluid collection, or mass effect. Fourth ventricle is midline without hydrocephalus. Bony calvarium intact. Small left frontal scalp hematoma/laceration. Visualized paranasal sinuses and mastoid air cells are clear. Impression: 1. Left frontal scalp hematoma/laceration. 2. Normal aging brain including atrophy and degenerative micro-ischemia. 3. No acute intracranial abnormalities. Comment: Preliminary interpretation was made by [facility]. No discrepancy. CTDI 51.62
== END 2019-01-10 11:45 | disposition home or self-care (01) ==
LOC: ED 09:46
DX: S01.81XA Laceration without foreign body of other part of head, initial encounter (principal); S50.02XA Contusion of left elbow, initial encounter; W07.XXXA Fall from chair, initial encounter; I10 Essential (primary) hypertension; I25.10 Atherosclerotic heart disease of native coronary artery without angina pectoris; E11.9 Type 2 diabetes mellitus without complications; M81.0 Age-related osteoporosis without current pathological fracture; N28.9 Disorder of kidney and ureter, unspecified; Z79.899 Other long term (current) drug therapy; M19.90 Unspecified osteoarthritis, unspecified site; I25.2 Old myocardial infarction
CPT/HCPCS: 70450; 99284

== ENCOUNTER 2019-03-01 14:04 | Emergency (ER) | payer MEDICARE ==
[2019-03-01] MEDS ORDERED: Sodium Chloride 0.9% 1000 ML 1,000 ML IV SCH (14:30)
--- NOTE | 2019-03-01 14:39 | ERPHSYRPT ---
- History of Present Illness Time Seen by Provider: 03/01/19 14:36 Source: patient Exam Limitations: no limitations Patient Subjective Stated Complaint: "I have noticed blood and blood clots in urine since about midnight last night" Triage Nursing Assessment: Pt present aaox3, color fair, resp easy, walks with cane, needs assist x1 at this time. c/o blood in urine since last night or early this am. States has blood clots in urine and states only has mild pressure in pubic area when passing blood clot. Has no other complaints or injuries per patient. Afebrile. Physician History: 84 years old female came to Er stating "I have noticed blood and blood clots in urine since about midnight last night" Timing/Duration: yesterday Activites at Onset: none Pain Radiation: none Associated Symptoms: other (hematurea) Allergies/Adverse Reactions: cephalexin [From Keflex] Allergy (Intermediate, Verified 01/10/19 10:20) headache swelling apixaban [From Eliquis] Allergy (Verified 02/25/19 14:16) Home Medications: Beta-Carotene [Beta Carotene] 10,000 unit PO HS 09/18/16 [History] Carvedilol 12.5 mg [Coreg 12.5 mg] 0.5 mg PO DAILY 09/18/16 [History] Cholecalciferol (Vitamin D3) [D3-2000] 2,000 unit PO HS 09/18/16 [History] Clopidogrel Bisulfate 75 mg [PLAVIX 75 MG Tablet] 75 mg PO HS 09/18/16 [ History] Herbal Drugs [Colon Herbal Cleanser] 1 tab PO HS 09/18/16 [History] Lutein 6 mg PO HS 09/18/16 [History] [place]-3 Fatty Acids [[place]-3] 1,000 mg PO HS 09/18/16 [History] Tramadol HCl 50 mg [Ultram 50 mg] 2 tab PO Q8HPRN PRN 09/18/16 [History] Ubidecarenone [Co Q-10] 100 mg PO HS 09/18/16 [History] Bumetanide 1 mg [Bumex 1 mg] 1 mg PO DAILY PRN PRN 09/22/16 [History] Hx Tetanus, Diphtheria Vaccination/Date Given: (unknown) Hx Influenza Vaccination/Date Given: No Hx Pneumococcal Vaccination/Date Given: Yes - Review of Systems Constitutional: No Fever, No Chills Eyes: No Symptoms Ears, Nose, & Throat: No Symptoms Respiratory: No Cough, No Dyspnea Cardiac: No Chest Pain, No Edema, No Syncope Abdominal/Gastrointestinal: No Abdominal Pain, No Nausea, No Vomiting, No Diarrhea Genitourinary Symptoms: Hematuria, No Dysuria Musculoskeletal: No Back Pain, No Neck Pain Skin: No Rash Neurological: No Dizziness, No Focal Weakness, No Sensory Changes Psychological: No Symptoms Endocrine: No Symptoms All Other Systems: Reviewed and Negative - Past Medical History Pertinent Past Medical History: Yes Neurological History: Dementia ENT History: Cataracts Cardiac History: Angina, Congestive Heart Failure, Hypertension, Myocardial Infarction ([place]) Respiratory History: Bronchitis Endocrine Medical History: Diabetes Type II Musculoskeletal History: Arthritis, Osteoporosis GI Medical History: Gallbladder Disease, Hernia History: Renal Disease Psycho-Social History: No Pertinent History Female Reproductive Disorders: Fibroids Other Medical History: anemia - Past Surgical History Past Surgical History: Yes Neuro Surgical History: No Pertinent History Cardiac: Cardiac Catheterization, Cardiac Stent Respiratory: No Pertinent History Gastrointestinal: Cholecystectomy, Hernia Repair Genitourinary: No Pertinent History Musculoskeletal: No Pertinent History Female Surgical History: Hysterectomy Other Surgical History: cardic stent x 2 - Social History Smoking Status: Former smoker How long have you smoked: "years" Exposure to second hand smoke: No Drug Use: none Patient Lives Alone: Yes - Female History Hx Now: No - Nursing Vital Signs Nursing Vital Signs: Initial Vital Signs Temperature 97.8 F 03/01/19 14:16 Pulse Rate 88 03/01/19 14:16 Respiratory Rate 18 03/01/19 14:16 Blood Pressure 105/62 03/01/19 14:16 O2 Sat by Pulse Oximetry 98 03/01/19 14:16 Pain Scale Pain Intensity 2 - Physical Exam General Appearance: no apparent distress, alert Eye Exam: PERRL/EOMI, eyes nml inspection Ears, Nose, Throat Exam: normal ENT inspection, TMs normal, pharynx normal, moist mucous membranes Neck Exam: normal inspection, non-tender, supple, full range of motion Respiratory Exam: normal breath sounds, lungs clear, No respiratory distress Cardiovascular Exam: regular rate/rhythm, normal heart sounds, normal peripheral pulses Gastrointestinal/Abdomen Exam: soft, No tenderness, No mass Back Exam: normal inspection, normal range of motion, No CVA tenderness, No vertebral tenderness Extremity Exam: normal inspection, normal range of motion, pelvis stable Neurologic Exam: alert, oriented x 3, cooperative, 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 II-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 nml as tested, normal mood/affect, sensation nml, No motor deficits Skin Exam: normal color, warm, dry Lymphatic Exam: No adenopathy SpO2: 98 - Course Nursing assessment & vital signs reviewed: Yes Ordered Tests: Active Orders 24 hr Category Date Time Status IV Insertion STAT Care 03/01/19 14:57 Active CBC W DIFF Stat Lab 03/01/19 14:50 Completed CMP Stat Lab 03/01/19 14:50 Completed CULTURE,URINE Stat Lab 03/01/19 14:56 Received UA W/RFX UR CULTURE Stat Lab 03/01/19 14:56 Completed Medication Summary Generic Name Dose Route Start Last Admin Trade Name Freq PRN Reason Stop Dose Admin Sodium Chloride 1,000 mls @ 100 mls/hr 03/01/19 14:30 03/01/19 15:04 Sodium Chloride 0.9% 1000 Ml IV 03/31/19 14:29 100 mls/hr .Q10H AMINTA Administration Lab/Rad Data: Laboratory Result Diagrams 03/01/19 14:50 03/01/19 14:50 Laboratory Results 03/01/19 03/01/19 03/01/19 Range/Units 14:56 14:50 14:50 WBC 6.8 (4.0-10.5) K/mm3 RBC 2.96 L (4.1-5.4) M/mm3 Hgb 8.4 L (12.0-16.0) gm/dl Hct 27.3 L (35-47) % MCV 92.2 (78-100) fl MCH 28.3 (26-32) pg MCHC 30.8 L (32-36) g/dl RDW 15.6 H (11.5-14.0) % Plt Count 283 (150-450) K/mm3 MPV 8.3 (6-9.5) fl Gran % 62.2 (36.0-66.0) % Eos # (Auto) 0.48 (0-0.5) Absolute Lymphs (auto) 1.46 (1.0-4.6) Absolute Monos (auto) 0.60 (0.0-1.3) Lymphocytes % 21.4 L (24.0-44.0) % Monocytes % 8.8 (0.0-12.0) % Eosinophils % 7.0 H (0.00-5.0) % Basophils % 0.6 (0.0-0.4) % Absolute Granulocytes 4.23 (1.4-6.9) Basophils # 0.04 (0-0.4) Sodium 141 (137-145) mmol/L Potassium 4.2 (3.5-5.1) mmol/L Chloride 105 (98-107) mmol/L Carbon Dioxide 25 (22-30) mmol/L Anion Gap 15.5 H (5-15) MEQ/L BUN 26 H (7-17) mg/dL Creatinine 1.24 H (0.52-1.04) mg/dL Estimated GFR 43.7 ML/MIN Glucose 147 H (74-106) mg/dL Calcium 9.5 (8.4-10.2) mg/dL Total Bilirubin 0.50 (0.2-1.3) mg/dL AST 21 (14-36) U/L ALT 11 (0-35) U/L Alkaline Phosphatase 77 (38-126) U/L Serum Total Protein 7.4 (6.3-8.2) g/dL Albumin 3.8 (3.5-5.0) g/dL Urine Color RED (YELLOW) Urine Appearance CLOUDY (CLEAR) Urine pH 7.0 (5-6) Ur Specific [place] 1.012 (1.005-1.025) Urine Protein 100 (Negative) Urine Ketones NEGATIVE (NEGATIVE) Urine Blood LARGE (0-5) Adriano/ul Urine Nitrite NEGATIVE (NEGATIVE) Urine Bilirubin NEGATIVE (NEGATIVE) Urine Urobilinogen NEGATIVE (0-1) mg/dL Ur Leukocyte Esterase NEGATIVE (NEGATIVE) Urine WBC (Auto) 6-10 (0-5) /HPF Urine RBC (Auto) >101 (0-2) /HPF U Epithel Cells (Auto) RARE (FEW) /HPF Urine Bacteria (Auto) FEW (NEGATIVE) /HPF Urine Culture Reflexed YES (NO) Urine Glucose 50 (NEGATIVE) mg/dL - Progress Progress: improved Air Movement: good Progress Note: 03/01/19 15:38 Patient. Hemoglobin is 8.4, which has been stable. Patient is also hemodynamically stable. Patient is advised to follow-up with her her primary, Dr. Sindy Julien, and respiratory therapy director, Dr. Mercer in next 2 days Blood Culture(s) Obtained: No Antibiotics given: No Counseled pt/family regarding: lab results, diagnosis, need for follow-up - Departure Departure Disposition: Home Clinical Impression: Hematuria Qualifiers: Hematuria type: gross Qualified Code(s): R31.0 - Gross hematuria CKD (chronic kidney disease) Qualifiers: Chronic kidney disease stage: stage 4 (severe) Qualified Code(s): N18.4 - Chronic kidney disease, stage 4 (severe) Condition: Stable Critical Care Time: No Referrals: ALIZA JULIEN [Primary Care Provider] - LEE GRACE [CONSULTING PHYSICIAN] - Followup in 3 days w/ PCP Instructions: Blood in the Urine (Hematuria) in Adults Additional Instructions: Discharge/Care Plan ROGE YUAN was seen on 03/01/19 in the Emergency Room. The patient was counseled regarding Diagnosis,Lab results, Imaging studies, need for follow up and when to return to the Emergency Room. Prescriptions given: Discharge Note I have spoken with the patient and/or caregivers. I have explained the patient' s condition, diagnosis and treatment plan based on the information available to me at this time. I have answered the patient's and/or caregiver's questions and addressed any concerns. The patient and/or caregivers have as good understanding of the patient's diagnosis, condition and treatment plan as can be expected at this point. The vital signs have been stable. The patient's condition is stable and appropriate for discharge from the emergency department. The patient will pursue further outpatient evaluation with the primary care physician or other designated or consulting physician as outlined in the discharge instructions. The patient and/or caregivers are agreeable to this plan of care and follow-up instructions have been explained in detail. The patient and/or caregivers have received these instruction. The patient/and or caregivers are aware that any significant change in condition or worsening of symptoms should prompt an immediate return to this or the closest emergency department or call 911.
[2019-03-01 14:55] LABS: BASOPHIL % 0.6 % (0.0-0.4); Basophil (Absolute #) 0.04 (0-0.4); Eosinophil (Absolute #) 0.48 (0-0.5); Granulocyte Absolute (ANC) 4.23 (1.4-6.9); Granulocytes % 62.2 % (36.0-66.0); Hematocrit 27.3 % (35-47); Hemoglobin 8.4 gm/dl (12.0-16.0); Lymphocyte (Absolute #) 1.46 (1.0-4.6); Lymphocytes % 21.4 % (24.0-44.0); Mean Cell Volume 92.2 fl (78-100); Mean Corpuscular Hgb Concent. 30.8 g/dl (32-36); Mean Platelet Volume 8.3 fl (6-9.5); Monocytes % 8.8 % (0.0-12.0); Platelet Count 283 K/mm3 (150-450); Red Blood Count 2.96 M/mm3 (4.1-5.4); Red Cell Distribution Width 15.6 % (11.5-14.0); White Blood Count 6.8 K/mm3 (4.0-10.5)
[2019-03-01] MEDS ORDERED: Sodium Chloride 0.9% 1000 ML 1,000 ML ONE (15:00)
[2019-03-01 15:10] LABS: ALBUMIN 3.8 g/dL (3.5-5.0); ANION GAP 15.5 MEQ/L (5-15); BILIRUBIN,TOTAL 0.5 mg/dL (0.2-1.3); Calcium 9.5 mg/dL (8.4-10.2); Creatinine 1 1.24 mg/dL (0.52-1.04); Potassium 4.2 mmol/L (3.5-5.1); Total Protein 7.4 g/dL (6.3-8.2)
[2019-03-01 15:15] LABS: Mean Corpuscular Hemoglobin 28.3 pg (26-32)
[2019-03-01 15:21] LABS: Appearance CLOUDY (CLEAR); Bilirubin NEGATIVE (NEGATIVE); Blood LARGE Ery/ul (0-5); Glucose 50 mg/dL (NEGATIVE); Ketones NEGATIVE (NEGATIVE); Leukocyte Esterase NEGATIVE (NEGATIVE); Nitrite NEGATIVE (NEGATIVE); Protein,Urine Dip 100 (Negative); Specific Gravity 1.012 (1.005-1.025); Urobilinogen NEGATIVE mg/dL (0-1)
[2019-03-01 15:31] LABS: Bacteria FEW /HPF (NEGATIVE); Epithelial Cells RARE /HPF (FEW); RBC >101 /HPF (0-2)
[2019-03-01 16:48] VITALS: BP 101/58; PULSE 80; O2SAT 98
== END 2019-03-01 16:46 | disposition home or self-care (01) ==
LOC: ED 14:04
DX: R31.0 Gross hematuria (principal); N18.4 Chronic kidney disease, stage 4 (severe); Z79.899 Other long term (current) drug therapy
CPT/HCPCS: 36000; 36415; 80053; 81001; 85025; 87086; 96360; 99284

== ENCOUNTER 2019-07-25 13:17 | Emergency (ER) | payer MEDICARE, SELFPAY ==
[2019-07-25 14:47] LABS: Absolute Neutrophil Ct (ANC) 4.41 (1.4-6.9); BASOPHIL % 0.5 % (0.0-0.4); Basophil (Absolute #) 0.03 (0-0.4); Eosinophil % 3.4 % (0.00-5.0); Eosinophil (Absolute #) 0.22 (0-0.5); Hematocrit 25.8 % (35-47); Lymphocyte (Absolute #) 1.31 (1.0-4.6); Lymphocytes % 20.2 % (24.0-44.0); Mean Cell Volume 94.5 fl (78-100); Mean Corpuscular Hemoglobin 29.3 pg (26-32); Mean Platelet Volume 8.6 fl (6-9.5); Monocyte (Absolute #) 0.51 (0.0-1.3); Monocytes % 7.9 % (0.0-12.0); Platelet Count 270 K/mm3 (150-450); Red Blood Count 2.73 M/mm3 (4.1-5.4); Red Cell Distribution Width 15.2 % (11.5-14.0); White Blood Count 6.5 K/mm3 (4.0-10.5)
[2019-07-25 15:00] LABS: Appearance BLOODY (CLEAR); Leukocyte Esterase COLOR INTERFERENCE (NEGATIVE); Specific Gravity COLOR INTERFERENCE (1.005-1.025)
[2019-07-25 15:01] LABS: Bilirubin COLOR INTERFERENCE (NEGATIVE); Blood COLOR INTERFERENCE Ery/ul (0-5); Glucose COLOR INTERFERENCE mg/dL (NEGATIVE); Ketones COLOR INTERFERENCE (NEGATIVE); Nitrite COLOR INTERFERENCE (NEGATIVE); Ph COLOR INTERFERENCE (5-6); Protein,Urine Dip COLOR INTERFERENCE (Negative); Urobilinogen COLOR INTERFERENCE mg/dL (0-1)
[2019-07-25 15:08] LABS: Bacteria RARE /HPF (NEGATIVE)
[2019-07-25 15:11] LABS: RBC >101 /HPF (0-2)
[2019-07-25 15:17] LABS: INR 1.15 (0.8-3.0)
[2019-07-25 15:20] LABS: PTT 31.5 SECONDS (25.3-37.0)
[2019-07-25 15:21] LABS: ALBUMIN 3.7 g/dL (3.5-5.0); ANION GAP 11.6 MEQ/L (5-15); BILIRUBIN,TOTAL 0.7 mg/dL (0.2-1.3); Calcium 9.1 mg/dL (8.4-10.2); Creatinine 1 1.22 mg/dL (0.52-1.04); Potassium 3.8 mmol/L (3.5-5.1); Total Protein 7.2 g/dL (6.3-8.2)
[2019-07-25 15:26] VITALS: O2SAT 98
[2019-07-25] MEDS ORDERED: Sodium Chloride 0.9% 1000 ML 1,000 ML IV SCH (16:00)
--- NOTE | 2019-07-25 16:08 | ERPHSYRPT ---
- History of Present Illness Time Seen by Provider: 07/25/19 13:45 Source: patient Exam Limitations: no limitations Patient Subjective Stated Complaint: Pt states "I have been on two medications since the 14 of july and now I have been bleeding alot in my urine." Triage Nursing Assessment: Pt presented alert and oriented X 3, skni pwd Pt ambulates with two canes, able to speak in clear full sentnces. PT brought in a urine sample and it was dark red. Physician History: PATIENT IS AN 84-YEAR-OLD WHITE FEMALE WHO has a history of frequent urinary tract infections she has had consultation with urology in the past which included an ultrasound of the abdomen. On the she was started on Macrobid and after cultures return on a urine was switched to Cipro. And she presents now with grossly bloody urine and the passage of large clots. Her urologist Dr. Serranos a biopsy to her bladder in the past. She denies any fever chills or sweats. She does say that she is chronically anemic. Timing/Duration: week(s) (2) Activites at Onset: none Quality: burning, cramping, sharpness Onset Location: suprapubic Severity of Pain-Max: moderate Severity of Pain-Current: moderate Modifying Factors: Improves With: nothing Allergies/Adverse Reactions: cephalexin [From Keflex] Allergy (Intermediate, Verified 03/10/19 15:05) headache swelling apixaban [From Eliquis] Allergy (Verified 03/10/19 15:05) Home Medications: Beta-Carotene [Beta Carotene] 10,000 unit PO HS 09/18/16 [History] Carvedilol 12.5 mg [Coreg 12.5 mg] 0.5 mg PO DAILY 09/18/16 [History] Cholecalciferol (Vitamin D3) [D3-2000] 2,000 unit PO HS 09/18/16 [History] Herbal Drugs [Colon Herbal Cleanser] 1 tab PO HS 09/18/16 [History] Lutein 6 mg PO HS 09/18/16 [History] Arcadia-3 Fatty Acids [Arcadia-3] 1,000 mg PO HS 09/18/16 [History] Tramadol HCl 50 mg [Ultram 50 mg] 2 tab PO Q8HPRN PRN 09/18/16 [History] Ubidecarenone [Co Q-10] 100 mg PO HS 09/18/16 [History] Bumetanide 1 mg [Bumex 1 mg] 1 mg PO DAILY PRN PRN 09/22/16 [History] Ciprofloxacin HCl [Cipro] 250 mg PO BID 07/25/19 [History] Nitrofurantoin Macro 100 mg [Macrobid 100MG Capsule] 100 mg PO BID [History] Hx Tetanus, Diphtheria Vaccination/Date Given: No Hx Influenza Vaccination/Date Given: No Hx Pneumococcal Vaccination/Date Given: Yes - Review of Systems Constitutional: No Fever, No Chills Eyes: No Symptoms Ears, Nose, & Throat: No Symptoms Respiratory: No Cough, No Dyspnea Cardiac: No Chest Pain, No Edema, No Syncope Genitourinary Symptoms: Dysuria, Hematuria, Urgency Neurological: No Dizziness, No Focal Weakness, No Sensory Changes Psychological: No Symptoms Endocrine: No Symptoms Hematologic/Lymphatic: No Symptoms Immunological/Allergic: No Symptoms All Other Systems: Reviewed and Negative - Past Medical History Pertinent Past Medical History: Yes Neurological History: Dementia ENT History: Cataracts Cardiac History: Angina, Congestive Heart Failure, Hypertension, Myocardial Infarction (ND) Respiratory History: Bronchitis Endocrine Medical History: Diabetes Type II Musculoskeletal History: Arthritis, Osteoporosis GI Medical History: Gallbladder Disease, Hernia History: Renal Disease Psycho-Social History: No Pertinent History Female Reproductive Disorders: Fibroids Other Medical History: anemia - Past Surgical History Past Surgical History: Yes Neuro Surgical History: No Pertinent History Cardiac: Cardiac Catheterization, Cardiac Stent Respiratory: No Pertinent History Gastrointestinal: Cholecystectomy, Hernia Repair Genitourinary: No Pertinent History Musculoskeletal: No Pertinent History Female Surgical History: Hysterectomy Other Surgical History: cardic stent x 2 - Social History Smoking Status: Former smoker How long have you smoked: "years" Exposure to second hand smoke: No Drug Use: none Patient Lives Alone: Yes - Female History Hx Now: No - Nursing Vital Signs Nursing Vital Signs: Initial Vital Signs Temperature 97.6 F 07/25/19 13:39 Pulse Rate 82 07/25/19 13:39 Respiratory Rate 18 07/25/19 13:39 Blood Pressure 145/67 07/25/19 13:39 O2 Sat by Pulse Oximetry 98 07/25/19 13:39 Pain Scale Pain Intensity 0 - Physical Exam General Appearance: no apparent distress ( and L. liter and a), moderate distress, alert Eye Exam: PERRL/EOMI, eyes nml inspection Ears, Nose, Throat Exam: normal ENT inspection, TMs normal, pharynx normal, moist mucous membranes Neck Exam: normal inspection, non-tender, supple, full range of motion Respiratory Exam: normal breath sounds, lungs clear, No respiratory distress Cardiovascular Exam: regular rate/rhythm, normal heart sounds, normal peripheral pulses Gastrointestinal/Abdomen Exam: soft, No tenderness, No mass Pelvic Exam: other (examination apparently M. reveals marked atrophic changes with adhesions and bleeding. Amazingly the nursing staff were able to anchor a three-way catheter which did return of grossly bloody urine with clots. 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, normal mood/affect, sensation nml, No motor deficits Skin Exam: normal color, warm, dry Lymphatic Exam: No adenopathy SpO2: 98 - CT Exams Abdomen/Pelvis CT Interpretation: Tele-radiologist Report, Other (bilateral hydronephrosis and hydroureter) Ordered Tests: Active Orders 24 hr Category Date Time Status ABDOMEN AND PELVIS W/0 CONTRAS [CT] Stat Exams 07/25/19 13:45 Taken CBC W DIFF Stat Lab 07/25/19 14:17 Completed CMP Stat Lab 07/25/19 14:17 Completed CULTURE,URINE Stat Lab 07/25/19 14:21 Ordered PROTIME WITH INR Stat Lab 07/25/19 14:17 Completed PTT Stat Lab 07/25/19 14:17 Completed UA W/RFX UR CULTURE Stat Lab 07/25/19 14:21 Completed Medication Summary Generic Name Dose Route Start Last Admin Trade Name Freq PRN Reason Stop Dose Admin Sodium Chloride 1,000 mls @ 100 mls/hr 07/25/19 16:00 07/25/19 16:56 Sodium Chloride 0.9% 1000 Ml IV 08/24/19 15:59 100 mls/hr .Q10H AMINTA Administration Lab/Rad Data: Laboratory Result Diagrams 07/25/19 14:17 07/25/19 14:17 Laboratory Results 07/25/19 07/25/19 07/25/19 Range/Units 14:21 14:17 14:17 WBC (4.0-10.5) K/mm3 RBC (4.1-5.4) M/mm3 Hgb (12.0-16.0) gm/dl Hct (35-47) % MCV (78-100) fl MCH (26-32) pg MCHC (32-36) g/dl RDW (11.5-14.0) % Plt Count (150-450) K/mm3 MPV (6-9.5) fl Gran % (36.0-66.0) % Eos # (Auto) (0-0.5) Absolute Lymphs (auto) (1.0-4.6) Absolute Monos (auto) (0.0-1.3) Lymphocytes % (24.0-44.0) % Monocytes % (0.0-12.0) % Eosinophils % (0.00-5.0) % Basophils % (0.0-0.4) % Absolute Granulocytes (1.4-6.9) Basophils # (0-0.4) PT 13.0 H (9.95-12.35) SECONDS INR 1.15 (0.8-3.0) APTT 31.5 (25.3-37.0) SECONDS Sodium 141 (137-145) mmol/L Potassium 3.8 (3.5-5.1) mmol/L Chloride 106 (98-107) mmol/L Carbon Dioxide 27 (22-30) mmol/L Anion Gap 11.6 (5-15) MEQ/L BUN 17 (7-17) mg/dL Creatinine 1.22 H (0.52-1.04) mg/dL Estimated GFR 44.5 ML/MIN Glucose 103 (74-106) mg/dL Calcium 9.1 (8.4-10.2) mg/dL Total Bilirubin 0.70 (0.2-1.3) mg/dL AST 33 (14-36) U/L ALT 9 (0-35) U/L Alkaline Phosphatase 71 (38-126) U/L Serum Total Protein 7.2 (6.3-8.2) g/dL Albumin 3.7 (3.5-5.0) g/dL Urine Color RED (YELLOW) Urine Appearance BLOODY (CLEAR) Urine pH COLOR INTERFERENCE (5-6) Ur Specific [place] COLOR INTERFERENCE (1.005-1.025) Urine Protein COLOR INTERFERENCE (Negative) Urine Ketones COLOR INTERFERENCE (NEGATIVE) Urine Blood COLOR INTERFERENCE (0-5) Adriano/ul Urine Nitrite COLOR INTERFERENCE (NEGATIVE) Urine Bilirubin COLOR INTERFERENCE (NEGATIVE) Urine Urobilinogen COLOR INTERFERENCE (0-1) mg/dL Ur Leukocyte Esterase COLOR INTERFERENCE (NEGATIVE) Urine WBC (Auto) NONE (0-5) /HPF Urine RBC (Auto) >101 (0-2) /HPF U Epithel Cells (Auto) NONE (FEW) /HPF Urine Bacteria (Auto) RARE (NEGATIVE) /HPF Urine Culture Reflexed NO (NO) Urine Glucose COLOR INTERFERENCE (NEGATIVE) mg/dL 07/25/19 Range/Units 14:17 WBC 6.5 (4.0-10.5) K/mm3 RBC 2.73 L (4.1-5.4) M/mm3 Hgb 8.0 L (12.0-16.0) gm/dl Hct 25.8 L (35-47) % MCV 94.5 (78-100) fl MCH 29.3 (26-32) pg MCHC 31.0 L (32-36) g/dl RDW 15.2 H (11.5-14.0) % Plt Count 270 (150-450) K/mm3 MPV 8.6 (6-9.5) fl Gran % 68.0 H (36.0-66.0) % Eos # (Auto) 0.22 (0-0.5) Absolute Lymphs (auto) 1.31 (1.0-4.6) Absolute Monos (auto) 0.51 (0.0-1.3) Lymphocytes % 20.2 L (24.0-44.0) % Monocytes % 7.9 (0.0-12.0) % Eosinophils % 3.4 (0.00-5.0) % Basophils % 0.5 (0.0-0.4) % Absolute Granulocytes 4.41 (1.4-6.9) Basophils # 0.03 (0-0.4) PT (9.95-12.35) SECONDS INR (0.8-3.0) APTT (25.3-37.0) SECONDS Sodium (137-145) mmol/L Potassium (3.5-5.1) mmol/L Chloride (98-107) mmol/L Carbon Dioxide (22-30) mmol/L Anion Gap (5-15) MEQ/L BUN (7-17) mg/dL Creatinine (0.52-1.04) mg/dL Estimated GFR ML/MIN Glucose (74-106) mg/dL Calcium (8.4-10.2) mg/dL Total Bilirubin (0.2-1.3) mg/dL AST (14-36) U/L ALT (0-35) U/L Alkaline Phosphatase (38-126) U/L Serum Total Protein (6.3-8.2) g/dL Albumin (3.5-5.0) g/dL Urine Color (YELLOW) Urine Appearance (CLEAR) Urine pH (5-6) Ur Specific [place] (1.005-1.025) Urine Protein (Negative) Urine Ketones (NEGATIVE) Urine Blood (0-5) Adriano/ul Urine Nitrite (NEGATIVE) Urine Bilirubin (NEGATIVE) Urine Urobilinogen (0-1) mg/dL Ur Leukocyte Esterase (NEGATIVE) Urine WBC (Auto) (0-5) /HPF Urine RBC (Auto) (0-2) /HPF U Epithel Cells (Auto) (FEW) /HPF Urine Bacteria (Auto) (NEGATIVE) /HPF Urine Culture Reflexed (NO) Urine Glucose (NEGATIVE) mg/dL - Progress Progress: unchanged Air Movement: fair Blood Culture(s) Obtained: No Antibiotics given: No - Departure Departure Disposition: Transfer (and and patient was accepted and transferred to [facility] by Dr. Mc Mcdonald) Clinical Impression: Hematuria Condition: Fair Critical Care Time: No Referrals: ALIZA CARRILLO [Primary Care Provider] -
[2019-07-25] MEDS ORDERED: Sodium Chloride 0.9% 1000 ML 1,000 ML ONE (16:50)
[2019-07-25 19:02] VITALS: BP 117/63; PULSE 92
--- NOTE | 2019-07-25 23:24 | XRAY ---
Indication: Hematuria. History UTIs. Multiple contiguous axial images obtained through the abdomen and pelvis without contrast as ordered. Comparison: None Lung bases demonstrates bibasilar fibrosis/scarring and tiny right effusion. Heart is enlarged. Noncontrasted stomach and bowel loops appear nonobstructed. Mild scattered colonic diverticulosis, greatest in the descending and sigmoid colon. No free fluid/air. Both kidneys are moderately hydronephrotic. Right ureter is also distended throughout to 2.4 cm. Left ureter is distended throughout up to 1.6 cm. No obstructive calculus. Urinary bladder demonstrates intraluminal air either iatrogenic from recent catheterization versus gas-forming bacterial infection. Previous appendectomy, cholecystectomy, common hysterectomy, and lower abdomen ventral hernia repair. Remaining liver, pancreas, spleen, and adrenal glands appear unremarkable for noncontrast exam. Moderate scattered vascular calcifications. No AAA. Osseous structures demonstrate is osteopenia and mild/moderate multilevel degenerative spondylosis including 4-5 mm L4 spondylolisthesis. Impression: 1. Marked bilateral hydronephrosis and hydroureter without obstructive calculus. 2. Urinary bladder intraluminal air either iatrogenic versus gas-forming bacterial infection. 3. Scattered colonic diverticulosis. 4. Osteopenia, multilevel degenerative spondylosis, and grade 1 L4 spondylolisthesis. 5. Cardiomegaly. Comment: Preliminary interpretation was made by [facility]. No critical discrepancy. CTDI 19.13
== END 2019-07-25 19:35 | disposition short-term general hospital (02) ==
LOC: ED 13:17
DX: R31.9 Hematuria, unspecified (principal); F03.90 Unspecified dementia, unspecified severity, without behavioral disturbance, psychotic disturbance, mood disturbance, and anxiety; I50.9 Heart failure, unspecified; Z79.899 Other long term (current) drug therapy; I10 Essential (primary) hypertension; I25.2 Old myocardial infarction; E11.9 Type 2 diabetes mellitus without complications; M81.0 Age-related osteoporosis without current pathological fracture; N28.9 Disorder of kidney and ureter, unspecified
CPT/HCPCS: 36415; 74176; 80053; 81001; 85025; 85610; 85730; 87086; 99284

== ENCOUNTER 2020-08-16 15:55 | Observation (INO) | payer MEDICARE ==
--- NOTE | 2020-08-16 16:02 | ERPHSYRPT ---
- History of Present Illness Source: patient, EMS Exam Limitations: no limitations Timing/Duration: today Severity of Dyspnea-Max: moderate Severity of Dyspnea-Current: mild Possible Cause: no prior episodes Modifying Factors: Improves With: coughing Associated Symptoms: cough, No chest pain/discomfort Hx Tetanus, Diphtheria Vaccination/Date Given: No Hx Influenza Vaccination/Date Given: No Hx Pneumococcal Vaccination/Date Given: Yes <MANNY TAYLOR - Last Filed: 08/16/20 18:43> <HOUSTON BRUNO - Last Filed: 08/16/20 22:22> - History of Present Illness Time Seen by Provider: 08/16/20 16:02 Physician History: Is an 85-year-old white female who is a diabetic, has some dementia, has chronic angina, CHF, hypertension, coronary artery disease with coronary stents x2 as well as chronic anemia. She presented with, per her report, brief shortness of breath while trying to eat a sandwich. She is a patient of Dr. Martinez. Patient states that upon arrival to the emergency department she has no shortness of breath. Patient denies pain of any kind. She has had no nausea vomiting or diarrhea. She has no sore throat. She has no myalgias or arthralgias. It is unclear at this time whether or not the patient is on any anticoagulation therapy. Supposedly, the patient has been tested recently for COVID-19. However we do not have the results of that test. EMS reports that the patient's nurse that was taking care of her tested positive for COVID-19 virus. Patient specifically states she is a DNR. (MANNY TAYLOR) Allergies/Adverse Reactions: cephalexin [From Keflex] Allergy (Intermediate, Verified 03/10/19 15:05) headache swelling apixaban [From Eliquis] Allergy (Verified 03/10/19 15:05) Home Medications: Beta-Carotene [Beta Carotene] 10,000 unit PO HS 09/18/16 [History] Carvedilol 12.5 mg [Coreg 12.5 mg] 0.5 mg PO DAILY 09/18/16 [History] Cholecalciferol (Vitamin D3) [D3-2000] 2,000 unit PO HS 09/18/16 [History] Herbal Drugs [Colon Herbal Cleanser] 1 tab PO HS 09/18/16 [History] Lutein 6 mg PO HS 09/18/16 [History] [place]-3 Fatty Acids [K[place]-3] 1,000 mg PO HS 09/18/16 [History] Tramadol HCl 50 mg [Ultram 50 mg] 2 tab PO Q8HPRN PRN 09/18/16 [History] Ubidecarenone [Co Q-10] 100 mg PO HS 09/18/16 [History] Bumetanide 1 mg [Bumex 1 mg] 1 mg PO DAILY PRN PRN 09/22/16 [History] Ciprofloxacin HCl [Cipro] 250 mg PO BID 07/25/19 [History] Nitrofurantoin Macro 100 mg [Macrobid 100MG Capsule] 100 mg PO BID 07/25/19 [History] Travel Risk - International Travel Have you traveled outside of the country in past 3 weeks: No - Coronavirus Screening Are you exhibiting any of the following symptoms?: Yes Symptoms: Cough: New Onset, Shortness of Breath Close contact with a COVID-19 positive Pt in past 14-21 Days: Yes <MANNY TAYLOR - Last Filed: 08/16/20 18:43> - Review of Systems Constitutional: No Symptoms Eyes: No Symptoms Ears, Nose, & Throat: No Symptoms Respiratory: Cough, Dyspnea Cardiac: No Symptoms Abdominal/Gastrointestinal: No Symptoms Genitourinary Symptoms: No Symptoms Musculoskeletal: No Symptoms Skin: No Symptoms Neurological: No Symptoms Psychological: No Symptoms Endocrine: No Symptoms Hematologic/Lymphatic: No Symptoms Immunological/Allergic: No Symptoms All Other Systems: Reviewed and Negative <MANNY TAYLOR - Last Filed: 08/16/20 18:43> - Past Medical History Pertinent Past Medical History: Yes Neurological History: Dementia ENT History: Cataracts Cardiac History: Angina, Congestive Heart Failure, Hypertension, Myocardial Infarction ([place]) Respiratory History: Bronchitis Endocrine Medical History: Diabetes Type II Musculoskeletal History: Arthritis, Osteoporosis GI Medical History: Gallbladder Disease, Hernia History: Renal Disease Psycho-Social History: No Pertinent History Female Reproductive Disorders: Fibroids Other Medical History: anemia - Past Surgical History Past Surgical History: Yes Neuro Surgical History: No Pertinent History Cardiac: Cardiac Catheterization, Cardiac Stent Respiratory: No Pertinent History Gastrointestinal: Cholecystectomy, Hernia Repair Genitourinary: No Pertinent History Musculoskeletal: No Pertinent History Female Surgical History: Hysterectomy Other Surgical History: cardic stent x 2 - Social History Smoking Status: Former smoker How long have you smoked: "years" Exposure to second hand smoke: No Drug Use: none Patient Lives Alone: Yes <MANNY TAYLOR - Last Filed: 08/16/20 18:43> - Physical Exam General Appearance: no apparent distress, alert, anxiety, obese Eye Exam: PERRL/EOMI, eyes nml inspection Ears, Nose, Throat Exam: hearing grossly normal, normal ENT inspection, normal pharynx Neck Exam: normal inspection, non-tender, supple, full range of motion Respiratory Exam: respiratory distress (Mild), airway intact, rhonchi (Left side), No chest tenderness Cardiovascular/Chest Exam: irregular Abdominal/Gastrointestinal Exam: soft, normal bowel sounds, No tenderness Rectal Exam: not done Extremity Exam: normal range of motion, pedal edema (Adderall feet and ankles. There is a bandage on her right ankle. There is no obvious cellulitis present. The skin of her bilateral lower extremities are very dry bilaterally.) Skin Exam: other (See above) Lymphatic Exam: No adenopathy SpO2 Interpretation: normal O2 Delivery: Nasal Cannula <MANNY TAYLOR - Last Filed: 08/16/20 18:43> - Nursing Vital Signs Nursing Vital Signs: Initial Vital Signs Temperature 98.2 F 08/16/20 16:19 Pulse Rate 85 08/16/20 16:19 Respiratory Rate 26 H 08/16/20 16:19 Blood Pressure 130/79 08/16/20 16:19 O2 Sat by Pulse Oximetry 100 08/16/20 16:19 Pain Scale Pain Intensity 0 - Course Nursing assessment & vital signs reviewed: Yes EKG Interpreted by Me: RATE (89), A-fib, NORMAL AXIS, NORMAL INTERVALS, Other (No comparison EKG available) <MANNY TAYLOR - Last Filed: 08/16/20 18:43> - CT Exams Chest CT Interpretation: Tele-radiologist Report (E. Bilateral effusions favor CHF. Patchy left upper lobe airway disease.) <HOUSTON BRUNO - Last Filed: 08/16/20 22:22> Ordered Tests: Active Orders 24 hr Category Date Time Status EKG-ER Only STAT Care 08/16/20 16:36 Active IV Insertion STAT Care 08/16/20 16:36 Active Isolation, Initiate & Maintain STAT Care 08/16/20 16:37 Active Oxygen-ED Only Nasal Cannula 4 lpm Care 08/16/20 16:36 Active CHEST 1 VIEW (PORTABLE) Stat Exams 08/16/20 16:37 Taken CHEST WITH CONTRAST [CT] Stat Exams 08/16/20 20:15 Taken BLOOD CULTURE Stat Lab 08/16/20 16:37 Ordered CBC W DIFF Stat Lab 08/16/20 18:00 Completed CMP Stat Lab 08/16/20 18:00 Completed D-DIMER QUANTITATIVE Stat Lab 08/16/20 19:10 Completed Ferritin Stat Lab 08/16/20 17:35 Completed INFLUENZA A+B SHENG Stat Lab 08/16/20 16:38 Completed LDH-LACTATE DEHYDROGENASE Stat Lab 08/16/20 18:00 Completed Lactic Acid Stat Lab 08/16/20 17:55 Completed Manual Differential NC Stat Lab 08/16/20 18:00 Completed [place] Screen Stat Lab 08/16/20 18:00 Completed NT PRO BNP Stat Lab 08/16/20 18:00 Completed TROPONIN Q3H Lab 08/16/20 17:35 Completed TROPONIN Q3H Lab 08/16/20 19:10 Completed TROPONIN Q3H Lab 08/16/20 22:45 Ordered TROPONIN Q3H Lab 08/17/20 01:45 Ordered TROPONIN Q3H Lab 08/17/20 04:45 Ordered Medication Summary Discontinued Medications Generic Name Dose Route Start Last Admin Trade Name Freq PRN Reason Stop Dose Admin Levofloxacin/Dextrose 500 mg in 100 mls @ 100 mls/hr 08/16/20 18:08 08/16/20 19:46 Levofloxacin 500mg/100ml D5w IV 08/16/20 19:07 Infused STAT STA Infusion Levofloxacin/Dextrose Confirm 08/16/20 18:41 Levofloxacin 500mg/100ml D5w Administered 08/16/20 18:42 Dose 500 mg in 100 mls @ ud IV .STK-MED ONE Lab/Rad Data: Laboratory Result Diagrams 08/16/20 18:00 08/16/20 18:00 Laboratory Results 08/16/20 08/16/20 08/16/20 Range/Units 19:10 19:10 19:10 WBC (4.0-10.5) K/mm3 RBC (4.1-5.4) M/mm3 Hgb (12.0-16.0) gm/dl Hct (35-47) % MCV (78-100) fl MCH (26-32) pg MCHC (32-36) g/dl RDW (11.5-14.0) % Plt Count (150-450) K/mm3 MPV (7.5-11.0) fl D-Dimer (215-500) ng/mL Sodium (137-145) mmol/L Potassium (3.5-5.1) mmol/L Chloride (98-107) mmol/L Carbon Dioxide (22-30) mmol/L Anion Gap (5-15) MEQ/L BUN (7-17) mg/dL Creatinine (0.52-1.04) mg/dL Estimated GFR ML/MIN Glucose (74-106) mg/dL Lactic Acid (0.4-2.0) Calcium (8.4-10.2) mg/dL Ferritin (11.1-264) ng/mL Total Bilirubin (0.2-1.3) mg/dL AST (14-36) U/L ALT (0-35) U/L Alkaline Phosphatase (38-126) U/L Lactate Dehydrogenase (120-246) U/L Troponin I (0.000-0.034) ng/mL NT-Pro-B Natriuret Pep (0-1800) pg/mL Serum Total Protein (6.3-8.2) g/dL Albumin (3.5-5.0) g/dL Monoscreen (Negative) Influenza Type A Ag (NEGATIVE) Influenza Type B Ag (NEGATIVE) Group A Strep Antibody (NEGATIVE) ABO Group A Rh Factor NEGATIVE Antibody Screen NEGATIVE (NEGATIVE) Crossmatch COMPATIBLE COMPATIBLE COMPATIBLE (COMPATIBLE) 08/16/20 08/16/20 08/16/20 Range/Units 19:10 19:10 18:00 WBC (4.0-10.5) K/mm3 RBC (4.1-5.4) M/mm3 Hgb (12.0-16.0) gm/dl Hct (35-47) % MCV (78-100) fl MCH (26-32) pg MCHC (32-36) g/dl RDW (11.5-14.0) % Plt Count (150-450) K/mm3 MPV (7.5-11.0) fl D-Dimer 1845 H* (215-500) ng/mL Sodium (137-145) mmol/L Potassium (3.5-5.1) mmol/L Chloride (98-107) mmol/L Carbon Dioxide (22-30) mmol/L Anion Gap (5-15) MEQ/L BUN (7-17) mg/dL Creatinine (0.52-1.04) mg/dL Estimated GFR ML/MIN Glucose (74-106) mg/dL Lactic Acid (0.4-2.0) Calcium (8.4-10.2) mg/dL Ferritin (11.1-264) ng/mL Total Bilirubin (0.2-1.3) mg/dL AST (14-36) U/L ALT (0-35) U/L Alkaline Phosphatase (38-126) U/L Lactate Dehydrogenase (120-246) U/L Troponin I < 0.012 (0.000-0.034) ng/mL NT-Pro-B Natriuret Pep (0-1800) pg/mL Serum Total Protein (6.3-8.2) g/dL Albumin (3.5-5.0) g/dL Monoscreen NEGATIVE (Negative) Influenza Type A Ag (NEGATIVE) Influenza Type B Ag (NEGATIVE) Group A Strep Antibody (NEGATIVE) ABO Group Rh Factor Antibody Screen (NEGATIVE) Crossmatch (COMPATIBLE) 08/16/20 08/16/20 08/16/20 Range/Units 18:00 18:00 17:55 WBC 9.9 (4.0-10.5) K/mm3 RBC 2.88 L (4.1-5.4) M/mm3 Hgb 7.8 L (12.0-16.0) gm/dl Hct 26.5 L (35-47) % MCV 92.0 (78-100) fl MCH 27.1 (26-32) pg MCHC 29.4 L (32-36) g/dl RDW 17.5 H (11.5-14.0) % Plt Count 393 (150-450) K/mm3 MPV 8.9 (7.5-11.0) fl D-Dimer (215-500) ng/mL Sodium 135 L (137-145) mmol/L Potassium 4.7 (3.5-5.1) mmol/L Chloride 103 (98-107) mmol/L Carbon Dioxide 24 (22-30) mmol/L Anion Gap 12.1 (5-15) MEQ/L BUN 26 H (7-17) mg/dL Creatinine 1.06 H (0.52-1.04) mg/dL Estimated GFR 52.2 ML/MIN Glucose 270 H (74-106) mg/dL Lactic Acid 1.3 (0.4-2.0) Calcium 8.4 (8.4-10.2) mg/dL Ferritin (11.1-264) ng/mL Total Bilirubin 0.40 (0.2-1.3) mg/dL AST 34 (14-36) U/L ALT 14 (0-35) U/L Alkaline Phosphatase 106 (38-126) U/L Lactate Dehydrogenase 237 (120-246) U/L Troponin I (0.000-0.034) ng/mL NT-Pro-B Natriuret Pep 4730 H (0-1800) pg/mL Serum Total Protein 6.4 (6.3-8.2) g/dL Albumin 3.1 L (3.5-5.0) g/dL Monoscreen (Negative) Influenza Type A Ag (NEGATIVE) Influenza Type B Ag (NEGATIVE) Group A Strep Antibody (NEGATIVE) ABO Group Rh Factor Antibody Screen (NEGATIVE) Crossmatch (COMPATIBLE) 08/16/20 08/16/20 08/16/20 Range/Units 17:35 17:35 17:35 WBC (4.0-10.5) K/mm3 RBC (4.1-5.4) M/mm3 Hgb (12.0-16.0) gm/dl Hct (35-47) % MCV (78-100) fl MCH (26-32) pg MCHC (32-36) g/dl RDW (11.5-14.0) % Plt Count (150-450) K/mm3 MPV (7.5-11.0) fl D-Dimer (215-500) ng/mL Sodium (137-145) mmol/L Potassium (3.5-5.1) mmol/L Chloride (98-107) mmol/L Carbon Dioxide (22-30) mmol/L Anion Gap (5-15) MEQ/L BUN (7-17) mg/dL Creatinine (0.52-1.04) mg/dL Estimated GFR ML/MIN Glucose (74-106) mg/dL Lactic Acid (0.4-2.0) Calcium (8.4-10.2) mg/dL Ferritin 379 H (11.1-264) ng/mL Total Bilirubin (0.2-1.3) mg/dL AST (14-36) U/L ALT (0-35) U/L Alkaline Phosphatase (38-126) U/L Lactate Dehydrogenase (120-246) U/L Troponin I < 0.012 (0.000-0.034) ng/mL NT-Pro-B Natriuret Pep (0-1800) pg/mL Serum Total Protein (6.3-8.2) g/dL Albumin (3.5-5.0) g/dL Monoscreen (Negative) Influenza Type A Ag (NEGATIVE) Influenza Type B Ag (NEGATIVE) Group A Strep Antibody NOT DETECTED (NEGATIVE) ABO Group Rh Factor Antibody Screen (NEGATIVE) Crossmatch (COMPATIBLE) 08/16/20 Range/Units 16:38 WBC (4.0-10.5) K/mm3 RBC (4.1-5.4) M/mm3 Hgb (12.0-16.0) gm/dl Hct (35-47) % MCV (78-100) fl MCH (26-32) pg MCHC (32-36) g/dl RDW (11.5-14.0) % Plt Count (150-450) K/mm3 MPV (7.5-11.0) fl D-Dimer (215-500) ng/mL Sodium (137-145) mmol/L Potassium (3.5-5.1) mmol/L Chloride (98-107) mmol/L Carbon Dioxide (22-30) mmol/L Anion Gap (5-15) MEQ/L BUN (7-17) mg/dL Creatinine (0.52-1.04) mg/dL Estimated GFR ML/MIN Glucose (74-106) mg/dL Lactic Acid (0.4-2.0) Calcium (8.4-10.2) mg/dL Ferritin (11.1-264) ng/mL Total Bilirubin (0.2-1.3) mg/dL AST (14-36) U/L ALT (0-35) U/L Alkaline Phosphatase (38-126) U/L Lactate Dehydrogenase (120-246) U/L Troponin I (0.000-0.034) ng/mL NT-Pro-B Natriuret Pep (0-1800) pg/mL Serum Total Protein (6.3-8.2) g/dL Albumin (3.5-5.0) g/dL Monoscreen (Negative) Influenza Type A Ag NEGATIVE (NEGATIVE) Influenza Type B Ag NEGATIVE (NEGATIVE) Group A Strep Antibody (NEGATIVE) ABO Group Rh Factor Antibody Screen (NEGATIVE) Crossmatch (COMPATIBLE) - Progress Progress: improved, re-examined Air Movement: fair Antibiotics given: Yes Counseled pt/family regarding: lab results, diagnosis, need for follow-up, rad results <MANNY TAYLOR - Last Filed: 08/16/20 18:43> - Progress Progress Note: 08/16/20 18:09 Chest x-ray shows a left pulmonary infiltrate. There is trace right pleural effusion present. There is mild cardiomegaly present. 08/16/20 18:43 Patient history, condition, pending laboratory studies and current laboratory results were discussed with Dr. Bruno. He will make final disposition plans. (MANNY TAYLOR) <MANNY TAYLOR - Last Filed: 08/16/20 18:43> - Departure Departure Disposition: Observation Critical Care Time: No <HOUSTON BRUNO - Last Filed: 08/16/20 22:22> - Departure Clinical Impression: Symptomatic anemia, CHF (congestive heart failure) Condition: Stable Referrals: MENA GUIDO [Primary Care Provider] - Instructions: Heart Failure
[2020-08-16] MEDS ORDERED: Levofloxacin 500MG/100ML D5W 500 MG/100 ML BAG IV STA (18:08)
[2020-08-16] MEDS ORDERED: Levofloxacin 500MG/100ML D5W 500 MG/100 ML BAG IV ONE (18:41)
[2020-08-16 18:43] LABS: Hematocrit 26.5 % (35-47); Hemoglobin 7.8 gm/dl (12.0-16.0); Mean Corpuscular Hemoglobin 27.1 pg (26-32); Mean Corpuscular Hgb Concent. 29.4 g/dl (32-36); Mean Platelet Volume 8.9 fl (7.5-11.0); Platelet Count 393 K/mm3 (150-450); Red Blood Count 2.88 M/mm3 (4.1-5.4); Red Cell Distribution Width 17.5 % (11.5-14.0); White Blood Count 9.9 K/mm3 (4.0-10.5)
[2020-08-16 18:45] LABS: ALBUMIN 3.1 g/dL (3.5-5.0); ANION GAP 12.1 MEQ/L (5-15); BILIRUBIN,TOTAL 0.4 mg/dL (0.2-1.3); Calcium 8.4 mg/dL (8.4-10.2); Creatinine 1 1.06 mg/dL (0.52-1.04); EST GLOMERULAR FILTRATION RATE 52.2 ML/MIN; Potassium 4.7 mmol/L (3.5-5.1); Total Protein 6.4 g/dL (6.3-8.2)
[2020-08-16 19:11] LABS: INFLUENZA A NEGATIVE (NEGATIVE); INFLUENZA B NEGATIVE (NEGATIVE)
[2020-08-16 21:38] LABS: ABO TYPING A; Antibody Screen NEGATIVE (NEGATIVE); RH TYPING NEGATIVE
[2020-08-16 21:41] LABS: CROSS MATCH (PRBC) COMPATIBLE (COMPATIBLE)
[2020-08-16] MEDS ORDERED: Lasix 20 MG/2 ML IV STA (22:19)
[2020-08-16] MEDS ORDERED: Lasix 40 MG/4 ML IV ONE (22:27)
[2020-08-16] MEDS ORDERED: Lasix 40 MG/4 ML ONE (22:28)
[2020-08-17 01:44] LABS: Basophil 1 % (0.0-1.0); Eosinophil 5 % (0.00-3.0); Lymphocytes 17 % (24-44); Monocyte 5 % (0.0-12.0); Neutrophils 72 % (36.0-66.0); Platelet Estimate NORMAL (NORMAL); Total Cells Counted 100
[2020-08-17 01:45] LABS: ANISOCYTOSIS 1+
[2020-08-17 01:46] LABS: Burr Cells 1+; Poikilocytosis 1+
[2020-08-17] MEDS ORDERED: Sodium Chloride 0.9% 500 ML 500 ML IV ONE (02:58)
[2020-08-17] MEDS ORDERED: Sodium Chloride 0.9% 500 ML 500 ML IV SCH (03:00)
--- NOTE | 2020-08-17 08:54 | XRAY ---
Indication: Short of breath. Elevated d-dimer. Multiple contiguous axial images obtained through the chest using 80 cc Isovue 370 contrast and PE protocol. Comparison: None There is good opacification of the pulmonary arteries. However mild respiration artifact limits evaluation of the more distal segmental branches. No pulmonary embolus. Heart is enlarged with scattered coronary calcifications. Aorta is mildly arteriosclerotic without aneurysm/dissection. No pathologic mediastinal/hilar lymphadenopathy. Lungs demonstrates minimal patchy left upper lobe airspace opacities. Mild/moderate pleural effusions with mild bibasilar compressive atelectasis, right greater than left. Bony thorax intact with osteopenia and flowing osteophytes throughout the spine. Right orthopedic hardware produces beam artifact. Limited upper abdomen demonstrate mild right renal atrophy. Impression: 1. Negative pulmonary embolus. 2. Minimal patchy left upper lobe airspace disease. 3. Cardiomegaly with bilateral effusions concerning for cardiac decompensation/CHF.
--- NOTE | 2020-08-17 08:56 | XRAY ---
Indication: Short of breath and cough. Comparison: None Portable chest hyperinflated with cardiomegaly and small bibasilar effusions concerning for cardiac decompensation/CHF. Patchy left upper lung airspace disease. Bony thorax intact with osteopenia, degenerative changes, right humerus orthopedic hardware, and left arm PICC line.
[2020-08-17] MEDS ORDERED: MEDICATION INTERVENTION PO SCH (09:45)
[2020-08-17 09:48] LABS: Hematocrit 27.1 % (35-47); Hemoglobin 8.2 gm/dl (12.0-16.0); Mean Cell Volume 89.4 fl (78-100); Mean Corpuscular Hemoglobin 27.1 pg (26-32); Mean Corpuscular Hgb Concent. 30.3 g/dl (32-36); Mean Platelet Volume 8.9 fl (7.5-11.0); Platelet Count 328 K/mm3 (150-450); Red Blood Count 3.03 M/mm3 (4.1-5.4); White Blood Count 8.5 K/mm3 (4.0-10.5)
[2020-08-17] MEDS ORDERED: FOLIC ACID PO SCH (10:00)
[2020-08-17] MEDS ORDERED: IRON PO SCH (10:00)
[2020-08-17] MEDS ORDERED: MULTIVITAMIN PO SCH (10:00)
[2020-08-17 10:02] LABS: ANION GAP 8.5 MEQ/L (5-15); Calcium 8.6 mg/dL (8.4-10.2); Creatinine 1 1.03 mg/dL (0.52-1.04); Potassium 4.4 mmol/L (3.5-5.1)
[2020-08-17] MEDS: THERAGRAN MULTIVITAMIN PO SCH (10:02)
[2020-08-17] MEDS: FEOSOL 325 MG PO SCH ×2 (10:02→21:25)
[2020-08-17] MEDS: SYNTHROID 25 MCG PO SCH (10:02)
[2020-08-17] MEDS: Coreg 6.25 MG PO SCH ×2 (10:02→21:25)
[2020-08-17] MEDS: Vitamin C 500 MG PO SCH ×2 (10:02→21:26)
[2020-08-17] MEDS: Nizoral CREAM TOP SCH ×2 (10:03→21:25)
[2020-08-17] MEDS ORDERED: INSULIN ASPART 1 UNIT SQ SCH (11:30)
[2020-08-17] MEDS ORDERED: HUMALOG SQ SCH (11:30)
[2020-08-17] MEDS ORDERED: Lasix 40 MG/4 ML IV ONE (11:56)
[2020-08-17] MEDS ORDERED: HUMALOG SQ PRN (11:57)
[2020-08-17] MEDS ORDERED: Glucophage 500 MG PO SCH (18:00)
[2020-08-17] MEDS ORDERED: OMEGA PO SCH (22:00)
[2020-08-17] MEDS ORDERED: Colace 100 MG PO SCH (22:00)
[2020-08-17] MEDS ORDERED: FATTY ACIDS PO SCH (22:00)
[2020-08-17] MEDS ORDERED: FISH OIL 1,000 MG CAPSULE PO SCH (22:00)
[2020-08-17] MEDS ORDERED: LUTEIN 6 MG PO SCH (22:00)
[2020-08-18 06:07] LABS: ALBUMIN 2.8 g/dL (3.5-5.0); ANION GAP 6.7 MEQ/L (5-15); BILIRUBIN,TOTAL 0.9 mg/dL (0.2-1.3); Calcium 8.7 mg/dL (8.4-10.2); EST GLOMERULAR FILTRATION RATE 55.9 ML/MIN
[2020-08-18 07:53] LABS: Absolute Neutrophil Ct (ANC) 5.71 (1.4-6.9); BASOPHIL % 0.8 % (0.0-0.4); Basophil (Absolute #) 0.07 (0-0.4); Eosinophil % 6.5 % (0.00-5.0); Eosinophil (Absolute #) 0.58 (0-0.5); Hematocrit 29.6 % (35-47); Hemoglobin 9.1 gm/dl (12.0-16.0); Lymphocyte (Absolute #) 1.53 (1.0-4.6); Lymphocytes % 17.1 % (24.0-44.0); Mean Cell Volume 88.9 fl (78-100); Mean Corpuscular Hemoglobin 27.3 pg (26-32); Mean Corpuscular Hgb Concent. 30.7 g/dl (32-36); Mean Platelet Volume 9.2 fl (7.5-11.0); Monocyte (Absolute #) 1.06 (0.0-1.3); Monocytes % 11.8 % (0.0-12.0); Neutrophil % 63.8 % (36.0-66.0); Platelet Count 325 K/mm3 (150-450); Red Blood Count 3.33 M/mm3 (4.1-5.4); Red Cell Distribution Width 17.1 % (11.5-14.0)
[2020-08-18] MEDS: Coreg 6.25 MG PO SCH (09:50)
[2020-08-18] MEDS: FEOSOL 325 MG PO SCH (09:50)
[2020-08-18] MEDS: SYNTHROID 25 MCG PO SCH (09:51)
[2020-08-18] MEDS: Vitamin C 500 MG PO SCH (09:51)
[2020-08-18] MEDS: THERAGRAN MULTIVITAMIN PO SCH (09:51)
[2020-08-18] MEDS: Nizoral CREAM TOP SCH (09:51)
--- NOTE | 2020-08-18 10:43 | PCM.HP ---
History of Present Illness - Chief Complaint Chief Complaint: cough and shortness of breath for 1 day Date: 08/17/20 History of Present Illness: is a 85 year old white female who is a diabetic, has some dementia, has chronic angina, CHF, hypertension, coronary artery disease with coronary stents x2 as well as chronic anemia. She presented with, per her report, brief shortness of breath while trying to eat a sandwich. She is a patient of Dr. Martinez. Patient states that upon arrival to the emergency department she has no shortness of breath. Patient denies pain of any kind. She has had no nausea vomiting or diarrhea. She has no sore throat. She has no myalgias or arthralgias. It is unclear at this time whether or not the patient is on any anticoagulation therapy. Supposedly, the patient has been tested recently for COVID-19. However we do not have the results of that test. EMS reports that the patient's nurse that was taking care of her tested positive for COVID-19 virus. - Review of Systems Constitutional: No Fever, No Chills Eyes: No Symptoms Ears, Nose, & Throat: No Symptoms Respiratory: Cough, Orthopnea, Short Of Breath, Wheezing Cardiac: No Chest Pain, No Edema, No Syncope Abdominal/Gastrointestinal: No Abdominal Pain, No Nausea, No Vomiting, No Diarrhea Genitourinary Symptoms: No Dysuria Musculoskeletal: No Back Pain, No Neck Pain Skin: No Rash Neurological: No Dizziness, No Focal Weakness, No Sensory Changes Psychological: No Symptoms Endocrine: No Symptoms Hematologic/Lymphatic: No Symptoms Immunological/Allergic: No Symptoms Medications & Allergies Home Medications: Home Medication List Carvedilol 12.5 mg [Coreg 12.5 mg] 6.25 mg PO BID 09/18/16 [History Confirmed 08/17/20] Lutein 6 mg PO HS 09/18/16 [History Confirmed 08/17/20] Brillion-3 Fatty Acids [Brillion-3] 1,000 mg PO HS 09/18/16 [History Confirmed 08/17/20] Ascorbic Acid 500 mg [Vitamin C 500 MG] 500 mg PO BID 08/17/20 [History Confirmed 08/17/20] Aspirin EC 81 mg [Ecotrin 81 mg] 81 mg PO DAILY 08/17/20 [History Confirmed 08/17/20] Docusate Sodium 100 mg [Colace 100 MG] 1 cap PO QHS 08/17/20 [History Confirmed 08/17/20] Ergocalciferol (Vitamin D2) [Vitamin D2] 50,000 unit PO Q7D 08/17/20 [History Confirmed 08/17/20] Ferrous Sulfate 325 mg [Feosol 325 mg] 1 tab PO BID 08/17/20 [History Confirmed 08/17/20] Insulin Aspart [Novolog] 1 units SQ ACHS 08/17/20 [History Confirmed 08/17/20] Ketoconazole Cream [Nizoral CREAM] 1 gm TOP BID 08/17/20 [History Confirmed 08/17/20] Levothyroxine Sodium 25 Mcg [Synthroid 25 Mcg] 1 tab PO DAILY 08/17/20 [History Confirmed 08/17/20] Metformin HCl 500 mg PO EVENING MEAL 08/17/20 [History Confirmed 08/17/20] Multivitamin/Iron/Folic Acid [Centrum Adults Tablet] 1 tablet PO DAILY 08/17/20 [History Confirmed 08/17/20] Allergies/Adverse Reactions: Allergies Allergy/AdvReac Type Severity Reaction Status Date / Time cephalexin [From Keflex] Allergy Intermediate Verified 03/10/19 15:05 apixaban [From Eliquis] Allergy Verified 03/10/19 15:05 - Past Medical History Past Medical History: Yes Neurological History: Dementia ENT History: Cataracts Cardiac History: Angina, Congestive Heart Failure, Hypertension, Myocardial Infarction ([place]) Respiratory History: Bronchitis Endocrine Medical History: Diabetes Type II Musculoskelatal History: Arthritis, Osteoporosis GI Medical History: Gallbladder Disease, Hernia History: Renal Disease Pyscho-Social History: No Pertinent History Reproductive Disorders: Fibroids Comment: anemia - Female History Are you now?: No - Past Surgical History Past Surgical History: Yes Neuro Surgical History: No Pertinent History Cardiac History: Cardiac Catheterization, Cardiac Stent Respiratory Surgery: No Pertinent History GI Surgical History: Cholecystectomy, Hernia Repair Genitourinary Surgical Hx: No Pertinent History Musculskeletal Surgical Hx: No Pertinent History Female Surgical History: Hysterectomy Other Surgical History: cardic stent x 2 - Social History Smoking Status: Former smoker How long have you smoked: "years" Exposure to second hand smoke: No Alcohol: None Drug Use: none - Physical Exam Vital Signs: Vital Signs - 24 hr Temp Pulse Resp BP Pulse Ox 08/18/20 08:00 97.7 F 74 22 123/58 99 08/18/20 07:41 98 08/18/20 04:00 98.0 F 71 25 H 110/53 98 08/17/20 23:52 98.2 F 81 28 H 138/62 98 08/17/20 20:15 98.1 F 83 26 H 128/59 98 08/17/20 18:35 98 08/17/20 16:00 97.5 F 79 18 135/63 94 L 08/17/20 12:00 98.0 F 77 18 135/70 96 Oxygen-Last 24 hours Oxygen Flowrate (L/min)-RT 2 General Appearance: no apparent distress, alert Neurologic Exam: alert, oriented x 3, cooperative, normal mood/affect, nml cerebellar function, nml station & gait, sensation nml, No motor deficits Eye Exam: PERRL/EOMI, eyes nml inspection Ears, Nose, Throat Exam: normal ENT inspection, TMs normal, pharynx normal, moist mucous membranes Neck Exam: normal inspection, non-tender, supple, full range of motion Respiratory Exam: normal breath sounds, lungs clear, No respiratory distress Cardiovascular Exam: regular rate/rhythm, normal heart sounds, normal peripheral pulses Gastrointestinal/Abdomen Exam: soft, normal bowel sounds, No tenderness, No mass Back Exam: normal inspection, normal range of motion, No CVA tenderness, No vertebral tenderness Extremity Exam: normal inspection, normal range of motion, pelvis stable Skin Exam: normal color, warm, dry, No rash Wound Assessment: Skin/Wound Assessment Wound/Incision Assessment Start: 08/17/20 04:01 Text: Status: Active Freq: Q6H Protocol: Document 08/18/20 04:00 (Rec: 08/18/20 04:25 SG [id number]) Wound/Incision Assessment Medial Buttock Wound Assessment Shift Assessment Wound Type Redness Wound Stage Non Pressure Wound General Appearance Open to air Surrounding Tissue Dark Red,Blanched/Dull Comment barrier cream applied. Right Lower Buttock Wound Assessment Admission Wound Type Abrasion Drainage Amount None Wound Bed Greatest Portion Red (Granulation) Surrounding Tissue [place] Comment barrier cream applied. Right Lower Abdomen Wound Assessment Admission Wound Type Abrasion Drainage Amount None General Appearance Open to air Wound Bed Greatest Portion Red (Granulation) Surrounding Tissue [place] Comment cleansed and dried. Pillow case in abd folds. Sacrum Wound Assessment Admission Wound Type Skin Tear Wound Stage Stage I Drainage Amount None General Appearance Open to air Wound Bed Greatest Portion Red (Granulation) Surrounding Tissue [place] Comment barrier cream applied. Left Lower Calf Wound Assessment Admission Wound Type Stasis Ulcer Drainage Amount None General Appearance Open to air Wound Bed Greatest Portion Red (Granulation) Surrounding Tissue [place] Left Foot Wound Assessment Admission Wound Type Pressure Ulcer Wound Stage Stage III Dressing Status Dry & Intact Drainage Amount None General Appearance Reddened Wound Bed Greatest Portion Red (Granulation) Surrounding Tissue [place] Primary Dressing Bandaid Right Lower Calf Wound Assessment Admission Wound Type Stasis Ulcer Dressing Status Dry & Intact Drainage Amount None Packing Type Gauze Pads Primary Dressing Absorbant Pad Wound Photo Comment: previously placed on chart Lymphatic Exam: No adenopathy Results - Labs Lab/Micro Results: Lab Results-Last 24 Hours 08/17/20 08/17/20 08/17/20 Range/Units 11:43 16:06 20:46 WBC (4.0-10.5) K/mm3 RBC (4.1-5.4) M/mm3 Hgb (12.0-16.0) gm/dl Hct (35-47) % MCV (78-100) fl MCH (26-32) pg MCHC (32-36) g/dl RDW (11.5-14.0) % Plt Count (150-450) K/mm3 MPV (7.5-11.0) fl Gran % (36.0-66.0) % Eos # (Auto) (0-0.5) Absolute Lymphs (auto) (1.0-4.6) Absolute Monos (auto) (0.0-1.3) Lymphocytes % (24.0-44.0) % Monocytes % (0.0-12.0) % Eosinophils % (0.00-5.0) % Basophils % (0.0-0.4) % Absolute Granulocytes (1.4-6.9) Basophils # (0-0.4) Sodium (137-145) mmol/L Potassium (3.5-5.1) mmol/L Chloride (98-107) mmol/L Carbon Dioxide (22-30) mmol/L Anion Gap (5-15) MEQ/L BUN (7-17) mg/dL Creatinine (0.52-1.04) mg/dL Estimated GFR ML/MIN Glucose (74-106) mg/dL POC Glucometer 191 H 215 H 140 H (74 to 106) mg/dL Calcium (8.4-10.2) mg/dL Total Bilirubin (0.2-1.3) mg/dL AST (14-36) U/L ALT (0-35) U/L Alkaline Phosphatase (38-126) U/L Serum Total Protein (6.3-8.2) g/dL Albumin (3.5-5.0) g/dL 08/18/20 08/18/20 08/18/20 Range/Units 04:30 04:30 07:19 WBC 9.0 (4.0-10.5) K/mm3 RBC 3.33 L (4.1-5.4) M/mm3 Hgb 9.1 L (12.0-16.0) gm/dl Hct 29.6 L (35-47) % MCV 88.9 (78-100) fl MCH 27.3 (26-32) pg MCHC 30.7 L (32-36) g/dl RDW 17.1 H (11.5-14.0) % Plt Count 325 (150-450) K/mm3 MPV 9.2 (7.5-11.0) fl Gran % 63.8 (36.0-66.0) % Eos # (Auto) 0.58 H (0-0.5) Absolute Lymphs (auto) 1.53 (1.0-4.6) Absolute Monos (auto) 1.06 (0.0-1.3) Lymphocytes % 17.1 L (24.0-44.0) % Monocytes % 11.8 (0.0-12.0) % Eosinophils % 6.5 H (0.00-5.0) % Basophils % 0.8 (0.0-0.4) % Absolute Granulocytes 5.71 (1.4-6.9) Basophils # 0.07 (0-0.4) Sodium 136 L (137-145) mmol/L Potassium 4.0 (3.5-5.1) mmol/L Chloride 104 (98-107) mmol/L Carbon Dioxide 29 (22-30) mmol/L Anion Gap 6.7 (5-15) MEQ/L BUN 23 H (7-17) mg/dL Creatinine 1.00 (0.52-1.04) mg/dL Estimated GFR 55.9 ML/MIN Glucose 105 (74-106) mg/dL POC Glucometer 110 H (74 to 106) mg/dL Calcium 8.7 (8.4-10.2) mg/dL Total Bilirubin 0.90 (0.2-1.3) mg/dL AST 29 (14-36) U/L ALT 13 (0-35) U/L Alkaline Phosphatase 90 (38-126) U/L Serum Total Protein 6.0 L (6.3-8.2) g/dL Albumin 2.8 L (3.5-5.0) g/dL Microbiology 08/16/20 17:50 Blood Culture - Preliminary Blood NO GROWTH TO DATE 08/16/20 17:30 Blood Culture - Preliminary Blood NO GROWTH TO DATE Accuchecks Date 08/18/20 Date 08/17/20 Date 08/17/20 Time 07:19 Time 16:34 Time 11:30 - Radiology Impressions Radiology Exams & Impressions: Radiology Procedures Category Date Time Status CHEST 1 VIEW (PORTABLE) Stat Exams 08/16/20 16:37 Completed CHEST WITH CONTRAST [CT] Stat Exams 08/16/20 20:15 Completed Assessment/Plan (1) Symptomatic anemia Current Visit: Yes Status: Acute Assessment & Plan: Chief Complaint Diagnosis CHF, Anemia, PNE Allergies Allergy/AdvReac Type Severity Reaction Status Date / Time cephalexin [From Keflex] Allergy Intermediate Verified 03/10/19 15:05 apixaban [From Eliquis] Allergy Verified 03/10/19 15:05 Vital Signs (Last 24 hours) Temp Pulse Resp BP Pulse Ox 08/18/20 08:00 97.7 F 74 22 123/58 99 08/18/20 07:41 98 08/18/20 04:00 98.0 F 71 25 H 110/53 98 08/17/20 23:52 98.2 F 81 28 H 138/62 98 08/17/20 20:15 98.1 F 83 26 H 128/59 98 08/17/20 18:35 98 08/17/20 16:00 97.5 F 79 18 135/63 94 L 08/17/20 12:00 98.0 F 77 18 135/70 96 Home Medications Medication Instructions Recorded Confirmed Last Taken Type Ascorbic Acid 500 mg [Vitamin C 500 mg PO BID 08/17/20 08/17/20 Unknown History 500 MG] Aspirin EC 81 mg [Ecotrin 81 81 mg PO DAILY 08/17/20 08/17/20 Unknown History mg] Docusate Sodium 100 mg [Colace 1 cap PO QHS 08/17/20 08/17/20 Unknown History 100 MG] Ergocalciferol (Vitamin D2) 50,000 unit PO Q7D 08/17/20 08/17/20 Unknown History [Vitamin D2] Ferrous Sulfate 325 mg [Feosol 1 tab PO BID 08/17/20 08/17/20 Unknown History 325 mg] Insulin Aspart [Novolog] 1 units SQ ACHS 08/17/20 08/17/20 Unknown History Ketoconazole Cream [Nizoral 1 gm TOP BID 08/17/20 08/17/20 Unknown History CREAM] Levothyroxine Sodium 25 Mcg 1 tab PO DAILY 08/17/20 08/17/20 Unknown History [Synthroid 25 Mcg] Metformin HCl 500 mg PO EVENING MEAL 08/17/20 08/17/20 Unknown History Multivitamin/Iron/Folic Acid 1 tablet PO DAILY 08/17/20 08/17/20 Unknown History [Centrum Adults Tablet] Current Medications Generic Name Dose Route Start Last Admin Trade Name Jaseq PRN Reason Stop Dose Admin Ascorbic Acid 500 mg 08/17/20 10:00 08/18/20 09:51 Vitamin C 500 Mg PO 09/16/20 09:59 500 mg BID AMINTA Administration Carvedilol 6.25 mg 08/17/20 10:00 08/18/20 09:50 Coreg 6.25 Mg PO 09/16/20 09:59 6.25 mg BID AMINTA Administration Docusate Sodium 100 mg 08/17/20 22:00 08/17/20 21:24 Colace 100 Mg PO 09/16/20 21:59 100 mg QHS AMINTA Administration Ergocalciferol 50,000 unit 08/22/20 10:00 Vitamin D2 PO 09/21/20 09:59 Q7D AMINTA Ferrous Sulfate 325 mg 08/17/20 10:00 08/18/20 09:50 Feosol 325 Mg PO 09/16/20 09:59 325 mg BID AMINTA Administration Fish Oil 1,000 mg 08/17/20 22:00 08/17/20 21:25 Fish Oil 1,000 Mg Capsule PO 09/16/20 21:59 1,000 mg HS AMINTA Administration Insulin Human Lispro 0 unit 08/17/20 11:57 Humalog SQ 09/16/20 11:56 UD PRN HYPERGLYCEMIA Ketoconazole 1 gm 08/17/20 10:00 08/18/20 09:51 Nizoral Cream TOP 09/16/20 09:59 1 gm BID AMINTA Administration Levothyroxine Sodium 25 mcg 08/17/20 10:00 08/18/20 09:51 Synthroid 25 Mcg PO 09/16/20 09:59 25 mcg DAILY AMINTA Administration Metformin HCl 500 mg 08/17/20 18:00 08/17/20 17:05 Glucophage 500 Mg PO 09/16/20 17:59 500 mg EVENING MEAL AMINTA Administration Miscellaneous Information 1 each 08/17/20 09:45 Medication Intervention PO 09/16/20 09:44 .RN TO CHECK ON [facility] Multivitamins Therapeutic 1 tab 08/17/20 10:00 08/18/20 09:51 Theragran Multivitamin PO 09/16/20 09:59 1 tab DAILY AMINTA Administration Discontinued Medications Generic Name Dose Route Start Last Admin Trade Name Jaseq PRN Reason Stop Dose Admin Furosemide 20 mg 08/16/20 22:19 08/16/20 22:27 Lasix 20 Mg/2 Ml IV 08/16/20 22:20 Not Given ONCE STA Furosemide 20 mg 08/16/20 22:27 08/16/20 22:30 Lasix 40 Mg/4 Ml IV 08/16/20 22:28 20 mg STAT ONE Administration Furosemide Confirm 08/16/20 22:28 Lasix 40 Mg/4 Ml Administered 08/16/20 22:29 Dose 40 mg .ROUTE .STK-MED ONE Furosemide 40 mg 08/17/20 11:56 08/17/20 12:21 Lasix 40 Mg/4 Ml IV 08/17/20 11:57 40 mg STAT ONE Administration Levofloxacin/Dextrose 500 mg in 100 mls @ 100 mls/hr 08/16/20 18:08 08/16/20 19:46 Levofloxacin 500mg/100ml D5w IV 08/16/20 19:07 Infused STAT STA Infusion Levofloxacin/Dextrose Confirm 08/16/20 18:41 Levofloxacin 500mg/100ml D5w Administered 08/16/20 18:42 Dose 500 mg in 100 mls @ ud IV .STK-MED ONE Sodium Chloride Confirm 08/17/20 02:58 Sodium Chloride 0.9% 500 Ml Administered 08/17/20 02:59 Dose 500 mls @ ud IV .STK-MED ONE Sodium Chloride 500 mls @ 0 mls/hr 08/17/20 03:00 08/17/20 03:01 Sodium Chloride 0.9% 500 Ml IV 08/17/20 16:00 30 mls/hr .Q0M AMINTA Administration KVO Insulin Human Lispro 1 unit 08/17/20 11:30 08/17/20 12:31 Humalog SQ 09/16/20 11:29 Not Given ACHS AMINTA Intake & Output (Last 24 hours) 08/15/20 08/16/20 08/17/20 08/18/20 11:59 11:59 11:59 11:59 Intake Total 374 1190 Output Total 1250 1950 Balance -876 -760 Weight 92.9 kg Microbiology Results (Last 24 hours) 08/16/20 17:50 Blood Blood Culture Gram Stain - Pending 08/16/20 17:50 Blood Blood Culture - Preliminary NO GROWTH TO DATE 08/16/20 17:30 Blood Blood Culture Gram Stain - Pending 08/16/20 17:30 Blood Blood Culture - Preliminary NO GROWTH TO DATE Laboratory Results (Last 24 hours) 08/18/20 08/18/20 08/18/20 07:19 04:30 04:30 WBC 9.0 RBC 3.33 L Hgb 9.1 L Hct 29.6 L MCV 88.9 MCH 27.3 MCHC 30.7 L RDW 17.1 H Plt Count 325 MPV 9.2 Gran % 63.8 Eos # (Auto) 0.58 H Absolute Lymphs (auto) 1.53 Absolute Monos (auto) 1.06 Lymphocytes % 17.1 L Monocytes % 11.8 Eosinophils % 6.5 H Basophils % 0.8 Absolute Granulocytes 5.71 Basophils # 0.07 Sodium 136 L Potassium 4.0 Chloride 104 Carbon Dioxide 29 Anion Gap 6.7 BUN 23 H Creatinine 1.00 Estimated GFR 55.9 Glucose 105 POC Glucometer 110 H Calcium 8.7 Total Bilirubin 0.90 AST 29 ALT 13 Alkaline Phosphatase 90 Serum Total Protein 6.0 L Albumin 2.8 L 08/17/20 08/17/20 08/17/20 20:46 16:06 11:43 WBC RBC Hgb Hct MCV MCH MCHC RDW Plt Count MPV Gran % Eos # (Auto) Absolute Lymphs (auto) Absolute Monos (auto) Lymphocytes % Monocytes % Eosinophils % Basophils % Absolute Granulocytes Basophils # Sodium Potassium Chloride Carbon Dioxide Anion Gap BUN Creatinine Estimated GFR Glucose POC Glucometer 140 H 215 H 191 H Calcium Total Bilirubin AST ALT Alkaline Phosphatase Serum Total Protein Albumin Orders (Last 24 hours) Category Date Time Status Up in Chair TOLERATED Activity 08/17/20 13:01 Active Consistent Carbohydrate Diet 1800 Calorie Diet 08/17/20 Lunch Active CBC W DIFF Routine Lab 08/18/20 04:30 Completed CMP Routine Lab 08/18/20 04:30 Completed POCT GLUCOSE Stat Lab 08/17/20 11:43 Completed POCT GLUCOSE Stat Lab 08/17/20 16:06 Completed POCT GLUCOSE Stat Lab 08/17/20 20:46 Completed POCT GLUCOSE Stat Lab 08/18/20 07:19 Completed Ascorbic Acid 500 mg [Vitamin C 500 MG] Med 08/17/20 10:00 Active 500 mg PO BID Carvedilol 6.25 mg [Coreg 6.25 MG] Med 08/17/20 10:00 Active 6.25 mg PO BID Docusate Sodium 100 mg [Colace 100 MG] Med 08/17/20 22:00 Active 100 mg PO QHS Ergocalciferol (Vitamin D2) [Vitamin D2] Med 08/22/20 10:00 Active 50,000 unit PO Q7D Ferrous Sulfate 325 mg [Feosol 325 mg] Med 08/17/20 10:00 Active 325 mg PO BID Furosemide 40 mg/4 ml [Lasix 40 MG/4 ML] Med 08/17/20 11:56 Discontinued 40 mg IV STAT ONE Insulin Lispro [Humalog] Med 08/17/20 11:30 Discontinued 1 unit SQ ACHS Insulin Lispro [Humalog] Med 08/17/20 11:57 Active See Dose Instructions SQ UD PRN Ketoconazole Cream [Nizoral CREAM] Med 08/17/20 10:00 Active 1 gm TOP BID Levothyroxine Sodium 25 Mcg [Synthroid 25 Mcg] Med 08/17/20 10:00 Active 25 mcg PO DAILY Medication Intervention Med 08/17/20 09:45 Active 1 each PO .RN TO CHECK ON Metformin HCl 500 mg [Glucophage 500 MG] Med 08/17/20 18:00 Active 500 mg PO EVENING MEAL Multivitamins,Therapeutic Tab* [Theragran Multivitamin* Med 08/17/20 10:00 Active ] 1 tab PO DAILY Brillion-3 Fatty Acids/Fish Oil [Fish Oil 1,000 mg Med 08/17/20 22:00 Active Capsule] 1,000 mg PO HS Patient Care Notes (Last 24 hours) 08/17/20 16:36 Nursing Note by Hanna Walton PT WEANED TO 2l NC. O2 SAT 94% Initialized on 08/17/20 16:36 - END OF NOTE 08/17/20 16:10 (created 08/17/20 17:06) Nursing Note by Hanna Walton assisted oob to chair. Initialized on 08/17/20 17:06 - END OF NOTE 08/17/20 13:46 Case Management [place] [facility] [place]IC[place] TO START THE PRECERT PROCESS FOR PATIENT TO RET[place] [facility] [place]. CLINICALS FAXED AT THIS TIME Initialized on 08/17/20 13:46 - END OF NOTE 08/17/20 12:29 Nursing Note by Hanna Walton DR. ROUNDED ON PT, NEW ORDERS TO GIVE ONLY 2 UNITS OF PRBCS AND GIVE LASIX 40MG. WILL GET LABS IN AM WITH INTENTION OF SENDING PT BACK TO [facility] TOMORROW. Initialized on 08/17/20 12:29 - END OF NOTE 08/17/20 11:23 Nursing Note by Hanna Walton pt is refusing 3rd unit of blood. Initialized on 08/17/20 11:23 - END OF NOTE 08/17/20 11:13 Nursing Note by Hanna Walton wet to dry dressing changed on right medial calf. wound approximately 2 inches in diameter and 1 cm deep. wound bed pink. Initialized on 08/17/20 11:13 - END OF NOTE 08/17/20 11:09 Nursing Note by Hanna Walton pt refuses matthew change so bedside drainage bag changed instead. PICC line dressing changed, -line flushed well and has good blood return. Initialized on 08/17/20 11:09 - END OF NOTE Code(s): D64.9 - ANEMIA, UNSPECIFIED (2) CHF (congestive heart failure) Current Visit: Yes Status: Chronic Qualifiers: Heart failure type: combined systolic and diastolic Heart failure chronicity: acute on chronic Qualified Code(s): I50.43 - Acute on chronic combined systolic (congestive) and diastolic (congestive) heart failure Assessment & Plan: Laboratory Results 08/18/20 08/18/20 08/18/20 Range/Units 07:19 04:30 04:30 WBC 9.0 (4.0-10.5) K/mm3 RBC 3.33 L (4.1-5.4) M/mm3 Hgb 9.1 L (12.0-16.0) gm/dl Hct 29.6 L (35-47) % MCV 88.9 (78-100) fl MCH 27.3 (26-32) pg MCHC 30.7 L (32-36) g/dl RDW 17.1 H (11.5-14.0) % Plt Count 325 (150-450) K/mm3 MPV 9.2 (7.5-11.0) fl Gran % 63.8 (36.0-66.0) % Eos # (Auto) 0.58 H (0-0.5) Absolute Lymphs (auto) 1.53 (1.0-4.6) Absolute Monos (auto) 1.06 (0.0-1.3) Lymphocytes % 17.1 L (24.0-44.0) % Monocytes % 11.8 (0.0-12.0) % Eosinophils % 6.5 H (0.00-5.0) % Basophils % 0.8 (0.0-0.4) % Absolute Granulocytes 5.71 (1.4-6.9) Segmented Neutrophils (36.0-66.0) % Lymphocytes (Manual) (24-44) % Monocytes (Manual) (0.0-12.0) % Eosinophils (Manual) (0.00-3.0) % Basophils (Manual) (0.0-1.0) % Basophils # 0.07 (0-0.4) Platelet Estimate (NORMAL) RBC Morphology Poikilocytosis Anisocytosis [place] Cells D-Dimer (215-500) ng/mL Sodium 136 L (137-145) mmol/L Potassium 4.0 (3.5-5.1) mmol/L Chloride 104 (98-107) mmol/L Carbon Dioxide 29 (22-30) mmol/L Anion Gap 6.7 (5-15) MEQ/L BUN 23 H (7-17) mg/dL Creatinine 1.00 (0.52-1.04) mg/dL Estimated GFR 55.9 ML/MIN Glucose 105 (74-106) mg/dL POC Glucometer 110 H (74 to 106) mg/dL Lactic Acid (0.4-2.0) Calcium 8.7 (8.4-10.2) mg/dL Ferritin (11.1-264) ng/mL Total Bilirubin 0.90 (0.2-1.3) mg/dL AST 29 (14-36) U/L ALT 13 (0-35) U/L Alkaline Phosphatase 90 (38-126) U/L Lactate Dehydrogenase (120-246) U/L Troponin I (0.000-0.034) ng/mL NT-Pro-B Natriuret Pep (0-1800) pg/mL Serum Total Protein 6.0 L (6.3-8.2) g/dL Albumin 2.8 L (3.5-5.0) g/dL Monoscreen (Negative) Influenza Type A Ag (NEGATIVE) Influenza Type B Ag (NEGATIVE) SARS-CoV-2 (PCR) (NEGATIVE) Group A Strep Antibody (NEGATIVE) ABO Group Rh Factor Antibody Screen (NEGATIVE) Crossmatch (COMPATIBLE) 08/17/20 08/17/20 08/17/20 Range/Units 20:46 16:06 11:43 WBC (4.0-10.5) K/mm3 RBC (4.1-5.4) M/mm3 Hgb (12.0-16.0) gm/dl Hct (35-47) % MCV (78-100) fl MCH (26-32) pg MCHC (32-36) g/dl RDW (11.5-14.0) % Plt Count (150-450) K/mm3 MPV (7.5-11.0) fl Gran % (36.0-66.0) % Eos # (Auto) (0-0.5) Absolute Lymphs (auto) (1.0-4.6) Absolute Monos (auto) (0.0-1.3) Lymphocytes % (24.0-44.0) % Monocytes % (0.0-12.0) % Eosinophils % (0.00-5.0) % Basophils % (0.0-0.4) % Absolute Granulocytes (1.4-6.9) Segmented Neutrophils (36.0-66.0) % Lymphocytes (Manual) (24-44) % Monocytes (Manual) (0.0-12.0) % Eosinophils (Manual) (0.00-3.0) % Basophils (Manual) (0.0-1.0) % Basophils # (0-0.4) Platelet Estimate (NORMAL) RBC Morphology Poikilocytosis Anisocytosis [place] Cells D-Dimer (215-500) ng/mL Sodium (137-145) mmol/L Potassium (3.5-5.1) mmol/L Chloride (98-107) mmol/L Carbon Dioxide (22-30) mmol/L Anion Gap (5-15) MEQ/L BUN (7-17) mg/dL Creatinine (0.52-1.04) mg/dL Estimated GFR ML/MIN Glucose (74-106) mg/dL POC Glucometer 140 H 215 H 191 H (74 to 106) mg/dL Lactic Acid (0.4-2.0) Calcium (8.4-10.2) mg/dL Ferritin (11.1-264) ng/mL Total Bilirubin (0.2-1.3) mg/dL AST (14-36) U/L ALT (0-35) U/L Alkaline Phosphatase (38-126) U/L Lactate Dehydrogenase (120-246) U/L Troponin I (0.000-0.034) ng/mL NT-Pro-B Natriuret Pep (0-1800) pg/mL Serum Total Protein (6.3-8.2) g/dL Albumin (3.5-5.0) g/dL Monoscreen (Negative) Influenza Type A Ag (NEGATIVE) Influenza Type B Ag (NEGATIVE) SARS-CoV-2 (PCR) (NEGATIVE) Group A Strep Antibody (NEGATIVE) ABO Group Rh Factor Antibody Screen (NEGATIVE) Crossmatch (COMPATIBLE) 08/17/20 08/17/20 08/17/20 Range/Units 08:12 08:12 06:59 WBC 8.5 (4.0-10.5) K/mm3 RBC 3.03 L (4.1-5.4) M/mm3 Hgb 8.2 L (12.0-16.0) gm/dl Hct 27.1 L (35-47) % MCV 89.4 (78-100) fl MCH 27.1 (26-32) pg MCHC 30.3 L (32-36) g/dl RDW 17.0 H (11.5-14.0) % Plt Count 328 (150-450) K/mm3 MPV 8.9 (7.5-11.0) fl Gran % (36.0-66.0) % Eos # (Auto) (0-0.5) Absolute Lymphs (auto) (1.0-4.6) Absolute Monos (auto) (0.0-1.3) Lymphocytes % (24.0-44.0) % Monocytes % (0.0-12.0) % Eosinophils % (0.00-5.0) % Basophils % (0.0-0.4) % Absolute Granulocytes (1.4-6.9) Segmented Neutrophils (36.0-66.0) % Lymphocytes (Manual) (24-44) % Monocytes (Manual) (0.0-12.0) % Eosinophils (Manual) (0.00-3.0) % Basophils (Manual) (0.0-1.0) % Basophils # (0-0.4) Platelet Estimate (NORMAL) RBC Morphology Poikilocytosis Anisocytosis Radha Cells D-Dimer (215-500) ng/mL Sodium 137 (137-145) mmol/L Potassium 4.4 (3.5-5.1) mmol/L Chloride 106 (98-107) mmol/L Carbon Dioxide 27 (22-30) mmol/L Anion Gap 8.5 (5-15) MEQ/L BUN 23 H (7-17) mg/dL Creatinine 1.03 (0.52-1.04) mg/dL Estimated GFR 54.0 ML/MIN Glucose 118 H (74-106) mg/dL POC Glucometer 125 H (74 to 106) mg/dL Lactic Acid (0.4-2.0) Calcium 8.6 (8.4-10.2) mg/dL Ferritin (11.1-264) ng/mL Total Bilirubin (0.2-1.3) mg/dL AST (14-36) U/L ALT (0-35) U/L Alkaline Phosphatase (38-126) U/L Lactate Dehydrogenase (120-246) U/L Troponin I (0.000-0.034) ng/mL NT-Pro-B Natriuret Pep 7310 H (0-1800) pg/mL Serum Total Protein (6.3-8.2) g/dL Albumin (3.5-5.0) g/dL Monoscreen (Negative) Influenza Type A Ag (NEGATIVE) Influenza Type B Ag (NEGATIVE) SARS-CoV-2 (PCR) (NEGATIVE) Group A Strep Antibody (NEGATIVE) ABO Group Rh Factor Antibody Screen (NEGATIVE) Crossmatch (COMPATIBLE) 08/17/20 08/17/20 08/16/20 Range/Units 04:45 02:00 22:40 WBC (4.0-10.5) K/mm3 RBC (4.1-5.4) M/mm3 Hgb (12.0-16.0) gm/dl Hct (35-47) % MCV (78-100) fl MCH (26-32) pg MCHC (32-36) g/dl RDW (11.5-14.0) % Plt Count (150-450) K/mm3 MPV (7.5-11.0) fl Gran % (36.0-66.0) % Eos # (Auto) (0-0.5) Absolute Lymphs (auto) (1.0-4.6) Absolute Monos (auto) (0.0-1.3) Lymphocytes % (24.0-44.0) % Monocytes % (0.0-12.0) % Eosinophils % (0.00-5.0) % Basophils % (0.0-0.4) % Absolute Granulocytes (1.4-6.9) Segmented Neutrophils (36.0-66.0) % Lymphocytes (Manual) (24-44) % Monocytes (Manual) (0.0-12.0) % Eosinophils (Manual) (0.00-3.0) % Basophils (Manual) (0.0-1.0) % Basophils # (0-0.4) Platelet Estimate (NORMAL) RBC Morphology Poikilocytosis Anisocytosis Radha Cells D-Dimer (215-500) ng/mL Sodium (137-145) mmol/L Potassium (3.5-5.1) mmol/L Chloride (98-107) mmol/L Carbon Dioxide (22-30) mmol/L Anion Gap (5-15) MEQ/L BUN (7-17) mg/dL Creatinine (0.52-1.04) mg/dL Estimated GFR ML/MIN Glucose (74-106) mg/dL POC Glucometer (74 to 106) mg/dL Lactic Acid (0.4-2.0) Calcium (8.4-10.2) mg/dL Ferritin (11.1-264) ng/mL Total Bilirubin (0.2-1.3) mg/dL AST (14-36) U/L ALT (0-35) U/L Alkaline Phosphatase (38-126) U/L Lactate Dehydrogenase (120-246) U/L Troponin I 0.022 0.018 < 0.012 (0.000-0.034) ng/mL NT-Pro-B Natriuret Pep (0-1800) pg/mL Serum Total Protein (6.3-8.2) g/dL Albumin (3.5-5.0) g/dL Monoscreen (Negative) Influenza Type A Ag (NEGATIVE) Influenza Type B Ag (NEGATIVE) SARS-CoV-2 (PCR) (NEGATIVE) Group A Strep Antibody (NEGATIVE) ABO Group Rh Factor Antibody Screen (NEGATIVE) Crossmatch (COMPATIBLE) 08/16/20 08/16/20 08/16/20 Range/Units 21:59 19:10 19:10 WBC (4.0-10.5) K/mm3 RBC (4.1-5.4) M/mm3 Hgb (12.0-16.0) gm/dl Hct (35-47) % MCV (78-100) fl MCH (26-32) pg MCHC (32-36) g/dl RDW (11.5-14.0) % Plt Count (150-450) K/mm3 MPV (7.5-11.0) fl Gran % (36.0-66.0) % Eos # (Auto) (0-0.5) Absolute Lymphs (auto) (1.0-4.6) Absolute Monos (auto) (0.0-1.3) Lymphocytes % (24.0-44.0) % Monocytes % (0.0-12.0) % Eosinophils % (0.00-5.0) % Basophils % (0.0-0.4) % Absolute Granulocytes (1.4-6.9) Segmented Neutrophils (36.0-66.0) % Lymphocytes (Manual) (24-44) % Monocytes (Manual) (0.0-12.0) % Eosinophils (Manual) (0.00-3.0) % Basophils (Manual) (0.0-1.0) % Basophils # (0-0.4) Platelet Estimate (NORMAL) RBC Morphology Poikilocytosis Anisocytosis Radha Cells D-Dimer (215-500) ng/mL Sodium (137-145) mmol/L Potassium (3.5-5.1) mmol/L Chloride (98-107) mmol/L Carbon Dioxide (22-30) mmol/L Anion Gap (5-15) MEQ/L BUN (7-17) mg/dL Creatinine (0.52-1.04) mg/dL Estimated GFR ML/MIN Glucose (74-106) mg/dL POC Glucometer (74 to 106) mg/dL Lactic Acid (0.4-2.0) Calcium (8.4-10.2) mg/dL Ferritin (11.1-264) ng/mL Total Bilirubin (0.2-1.3) mg/dL AST (14-36) U/L ALT (0-35) U/L Alkaline Phosphatase (38-126) U/L Lactate Dehydrogenase (120-246) U/L Troponin I (0.000-0.034) ng/mL NT-Pro-B Natriuret Pep (0-1800) pg/mL Serum Total Protein (6.3-8.2) g/dL Albumin (3.5-5.0) g/dL Monoscreen (Negative) Influenza Type A Ag (NEGATIVE) Influenza Type B Ag (NEGATIVE) SARS-CoV-2 (PCR) NEGATIVE (NEGATIVE) Group A Strep Antibody (NEGATIVE) ABO Group Rh Factor Antibody Screen (NEGATIVE) Crossmatch COMPATIBLE COMPATIBLE (COMPATIBLE) 08/16/20 08/16/20 08/16/20 Range/Units 19:10 19:10 19:10 WBC (4.0-10.5) K/mm3 RBC (4.1-5.4) M/mm3 Hgb (12.0-16.0) gm/dl Hct (35-47) % MCV (78-100) fl MCH (26-32) pg MCHC (32-36) g/dl RDW (11.5-14.0) % Plt Count (150-450) K/mm3 MPV (7.5-11.0) fl Gran % (36.0-66.0) % Eos # (Auto) (0-0.5) Absolute Lymphs (auto) (1.0-4.6) Absolute Monos (auto) (0.0-1.3) Lymphocytes % (24.0-44.0) % Monocytes % (0.0-12.0) % Eosinophils % (0.00-5.0) % Basophils % (0.0-0.4) % Absolute Granulocytes (1.4-6.9) Segmented Neutrophils (36.0-66.0) % Lymphocytes (Manual) (24-44) % Monocytes (Manual) (0.0-12.0) % Eosinophils (Manual) (0.00-3.0) % Basophils (Manual) (0.0-1.0) % Basophils # (0-0.4) Platelet Estimate (NORMAL) RBC Morphology Poikilocytosis Anisocytosis Radha Cells D-Dimer 1845 H* (215-500) ng/mL Sodium (137-145) mmol/L Potassium (3.5-5.1) mmol/L Chloride (98-107) mmol/L Carbon Dioxide (22-30) mmol/L Anion Gap (5-15) MEQ/L BUN (7-17) mg/dL Creatinine (0.52-1.04) mg/dL Estimated GFR ML/MIN Glucose (74-106) mg/dL POC Glucometer (74 to 106) mg/dL Lactic Acid (0.4-2.0) Calcium (8.4-10.2) mg/dL Ferritin (11.1-264) ng/mL Total Bilirubin (0.2-1.3) mg/dL AST (14-36) U/L ALT (0-35) U/L Alkaline Phosphatase (38-126) U/L Lactate Dehydrogenase (120-246) U/L Troponin I < 0.012 (0.000-0.034) ng/mL NT-Pro-B Natriuret Pep (0-1800) pg/mL Serum Total Protein (6.3-8.2) g/dL Albumin (3.5-5.0) g/dL Monoscreen (Negative) Influenza Type A Ag (NEGATIVE) Influenza Type B Ag (NEGATIVE) SARS-CoV-2 (PCR) (NEGATIVE) Group A Strep Antibody (NEGATIVE) ABO Group A Rh Factor NEGATIVE Antibody Screen NEGATIVE (NEGATIVE) Crossmatch COMPATIBLE (COMPATIBLE) 08/16/20 08/16/20 08/16/20 Range/Units 18:00 18:00 18:00 WBC 9.9 (4.0-10.5) K/mm3 RBC 2.88 L (4.1-5.4) M/mm3 Hgb 7.8 L (12.0-16.0) gm/dl Hct 26.5 L (35-47) % MCV 92.0 (78-100) fl MCH 27.1 (26-32) pg MCHC 29.4 L (32-36) g/dl RDW 17.5 H (11.5-14.0) % Plt Count 393 (150-450) K/mm3 MPV 8.9 (7.5-11.0) fl Gran % (36.0-66.0) % Eos # (Auto) (0-0.5) Absolute Lymphs (auto) (1.0-4.6) Absolute Monos (auto) (0.0-1.3) Lymphocytes % (24.0-44.0) % Monocytes % (0.0-12.0) % Eosinophils % (0.00-5.0) % Basophils % (0.0-0.4) % Absolute Granulocytes (1.4-6.9) Segmented Neutrophils 72 H (36.0-66.0) % Lymphocytes (Manual) 17 L (24-44) % Monocytes (Manual) 5 (0.0-12.0) % Eosinophils (Manual) 5 H (0.00-3.0) % Basophils (Manual) 1 (0.0-1.0) % Basophils # (0-0.4) Platelet Estimate NORMAL (NORMAL) RBC Morphology ABNORMAL Poikilocytosis 1+ Anisocytosis 1+ Radha Cells 1+ D-Dimer (215-500) ng/mL Sodium 135 L (137-145) mmol/L Potassium 4.7 (3.5-5.1) mmol/L Chloride 103 (98-107) mmol/L Carbon Dioxide 24 (22-30) mmol/L Anion Gap 12.1 (5-15) MEQ/L BUN 26 H (7-17) mg/dL Creatinine 1.06 H (0.52-1.04) mg/dL Estimated GFR 52.2 ML/MIN Glucose 270 H (74-106) mg/dL POC Glucometer (74 to 106) mg/dL Lactic Acid (0.4-2.0) Calcium 8.4 (8.4-10.2) mg/dL Ferritin (11.1-264) ng/mL Total Bilirubin 0.40 (0.2-1.3) mg/dL AST 34 (14-36) U/L ALT 14 (0-35) U/L Alkaline Phosphatase 106 (38-126) U/L Lactate Dehydrogenase 237 (120-246) U/L Troponin I (0.000-0.034) ng/mL NT-Pro-B Natriuret Pep 4730 H (0-1800) pg/mL Serum Total Protein 6.4 (6.3-8.2) g/dL Albumin 3.1 L (3.5-5.0) g/dL Monoscreen NEGATIVE (Negative) Influenza Type A Ag (NEGATIVE) Influenza Type B Ag (NEGATIVE) SARS-CoV-2 (PCR) (NEGATIVE) Group A Strep Antibody (NEGATIVE) ABO Group Rh Factor Antibody Screen (NEGATIVE) Crossmatch (COMPATIBLE) 08/16/20 08/16/20 08/16/20 Range/Units 17:55 17:35 17:35 WBC (4.0-10.5) K/mm3 RBC (4.1-5.4) M/mm3 Hgb (12.0-16.0) gm/dl Hct (35-47) % MCV (78-100) fl MCH (26-32) pg MCHC (32-36) g/dl RDW (11.5-14.0) % Plt Count (150-450) K/mm3 MPV (7.5-11.0) fl Gran % (36.0-66.0) % Eos # (Auto) (0-0.5) Absolute Lymphs (auto) (1.0-4.6) Absolute Monos (auto) (0.0-1.3) Lymphocytes % (24.0-44.0) % Monocytes % (0.0-12.0) % Eosinophils % (0.00-5.0) % Basophils % (0.0-0.4) % Absolute Granulocytes (1.4-6.9) Segmented Neutrophils (36.0-66.0) % Lymphocytes (Manual) (24-44) % Monocytes (Manual) (0.0-12.0) % Eosinophils (Manual) (0.00-3.0) % Basophils (Manual) (0.0-1.0) % Basophils # (0-0.4) Platelet Estimate (NORMAL) RBC Morphology Poikilocytosis Anisocytosis [place] Cells D-Dimer (215-500) ng/mL Sodium (137-145) mmol/L Potassium (3.5-5.1) mmol/L Chloride (98-107) mmol/L Carbon Dioxide (22-30) mmol/L Anion Gap (5-15) MEQ/L BUN (7-17) mg/dL Creatinine (0.52-1.04) mg/dL Estimated GFR ML/MIN Glucose (74-106) mg/dL POC Glucometer (74 to 106) mg/dL Lactic Acid 1.3 (0.4-2.0) Calcium (8.4-10.2) mg/dL Ferritin 379 H (11.1-264) ng/mL Total Bilirubin (0.2-1.3) mg/dL AST (14-36) U/L ALT (0-35) U/L Alkaline Phosphatase (38-126) U/L Lactate Dehydrogenase (120-246) U/L Troponin I < 0.012 (0.000-0.034) ng/mL NT-Pro-B Natriuret Pep (0-1800) pg/mL Serum Total Protein (6.3-8.2) g/dL Albumin (3.5-5.0) g/dL Monoscreen (Negative) Influenza Type A Ag (NEGATIVE) Influenza Type B Ag (NEGATIVE) SARS-CoV-2 (PCR) (NEGATIVE) Group A Strep Antibody (NEGATIVE) ABO Group Rh Factor Antibody Screen (NEGATIVE) Crossmatch (COMPATIBLE) 08/16/20 08/16/20 Range/Units 17:35 16:38 WBC (4.0-10.5) K/mm3 RBC (4.1-5.4) M/mm3 Hgb (12.0-16.0) gm/dl Hct (35-47) % MCV (78-100) fl MCH (26-32) pg MCHC (32-36) g/dl RDW (11.5-14.0) % Plt Count (150-450) K/mm3 MPV (7.5-11.0) fl Gran % (36.0-66.0) % Eos # (Auto) (0-0.5) Absolute Lymphs (auto) (1.0-4.6) Absolute Monos (auto) (0.0-1.3) Lymphocytes % (24.0-44.0) % Monocytes % (0.0-12.0) % Eosinophils % (0.00-5.0) % Basophils % (0.0-0.4) % Absolute Granulocytes (1.4-6.9) Segmented Neutrophils (36.0-66.0) % Lymphocytes (Manual) (24-44) % Monocytes (Manual) (0.0-12.0) % Eosinophils (Manual) (0.00-3.0) % Basophils (Manual) (0.0-1.0) % Basophils # (0-0.4) Platelet Estimate (NORMAL) RBC Morphology Poikilocytosis Anisocytosis [place] Cells D-Dimer (215-500) ng/mL Sodium (137-145) mmol/L Potassium (3.5-5.1) mmol/L Chloride (98-107) mmol/L Carbon Dioxide (22-30) mmol/L Anion Gap (5-15) MEQ/L BUN (7-17) mg/dL Creatinine (0.52-1.04) mg/dL Estimated GFR ML/MIN Glucose (74-106) mg/dL POC Glucometer (74 to 106) mg/dL Lactic Acid (0.4-2.0) Calcium (8.4-10.2) mg/dL Ferritin (11.1-264) ng/mL Total Bilirubin (0.2-1.3) mg/dL AST (14-36) U/L ALT (0-35) U/L Alkaline Phosphatase (38-126) U/L Lactate Dehydrogenase (120-246) U/L Troponin I (0.000-0.034) ng/mL NT-Pro-B Natriuret Pep (0-1800) pg/mL Serum Total Protein (6.3-8.2) g/dL Albumin (3.5-5.0) g/dL Monoscreen (Negative) Influenza Type A Ag NEGATIVE (NEGATIVE) Influenza Type B Ag NEGATIVE (NEGATIVE) SARS-CoV-2 (PCR) (NEGATIVE) Group A Strep Antibody NOT DETECTED (NEGATIVE) ABO Group Rh Factor Antibody Screen (NEGATIVE) Crossmatch (COMPATIBLE) Code(s): I50.9 - HEART FAILURE, UNSPECIFIED (3) CKD (chronic kidney disease) Current Visit: No Status: Chronic Code(s): N18.9 - CHRONIC KIDNEY DISEASE, UNSPECIFIED (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
[2020-08-18 12:25] VITALS: BP 118/56; PULSE 69
[2020-08-18 15:06] VITALS: O2SAT 95
[2020-08-22] MEDS ORDERED: VITAMIN D2 PO SCH (10:00)
== END 2020-08-18 16:15 ==
LOC: ED 15:55 → MED SURG 08-17 02:28
PROVIDERS: ADMIT Family Medicine; ATTEND Family Medicine
DX: D64.9 Anemia, unspecified (principal); E11.22 Type 2 diabetes mellitus with diabetic chronic kidney disease; I13.0 Hypertensive heart and chronic kidney disease with heart failure and stage 1 through stage 4 chronic kidney disease, or unspecified chronic kidney disease; N18.9 Chronic kidney disease, unspecified; I50.9 Heart failure, unspecified; F03.90 Unspecified dementia, unspecified severity, without behavioral disturbance, psychotic disturbance, mood disturbance, and anxiety; I10 Essential (primary) hypertension; I25.10 Atherosclerotic heart disease of native coronary artery without angina pectoris; E11.59 Type 2 diabetes mellitus with other circulatory complications; I70.209 Unspecified atherosclerosis of native arteries of extremities, unspecified extremity
CPT/HCPCS: 36000; 36415; 36430; 71045; 71260; 80048; 80053; 82728; 82947; 83605; 83615; 83880; 84484; 85025; 85027; 85379; 86308; 86850; 86900; 86901; 86922; 87040; 87400; 87651; 93005; 93268; 94760; 94762; 96360; 96374; 99285; G0378; P9016; U0003; J1940; J1956; A9270-GY

== ENCOUNTER 2020-10-16 13:07 | Inpatient (IN) | payer MEDICARE ==
[2020-10-16] MEDS: Glucophage 500 MG PO SCH (17:09)
[2020-10-16] MEDS: Invanz 1 GM*** 1 G in Sodium Chloride 100ML MINI-BAG PLUS 100 ML IV SCH (17:16)
[2020-10-16] MEDS: Coreg 6.25 MG PO SCH (22:11)
[2020-10-16] MEDS: ULTRAM 50 MG PO SCH (22:11)
[2020-10-16] MEDS: Colace 100 MG PO SCH (22:11)
[2020-10-16 22:47] LABS: Appearance CLOUDY (CLEAR); Bacteria FEW /HPF (NEGATIVE); Bilirubin NEGATIVE (NEGATIVE); Blood MODERATE Ery/ul (0-5); Glucose 50 mg/dL (NEGATIVE); Ketones NEGATIVE (NEGATIVE); Leukocyte Esterase MODERATE (NEGATIVE); Mucus SLIGHT /HPF (NEGATIVE); Nitrite NEGATIVE (NEGATIVE); Protein,Urine Dip 100 (Negative); RBC >101 /HPF (0-2); Specific Gravity 1.016 (1.005-1.025); Urobilinogen NEGATIVE mg/dL (0-1); WBC >100 /HPF (0-5)
[2020-10-17] MEDS: Glucophage 500 MG PO SCH ×2 (08:35→17:04)
--- NOTE | 2020-10-17 08:43 | PCM.HP ---
History of Present Illness - Chief Complaint Chief Complaint: UTI failed outpatient, COVID + History of Present Illness: is a 85 year old female who apparently was recently released from [employer] she was weak and having a hard time caring for herself so saw Dr Acuna on 10/14/20, she was found to have a recurrent UTI with chronic indwelling matthew under the care of Dr Sanchez, she also had a covid swab for placement to [facility] which is positive. There is not a clear history but she states she had a positive covid around , in [facility] there is a negative swab from 08/16 but no documentation of a prior positive, she currently has no cough, no shortness of breath, no vomiting, no diarrhea and no pain. She is alert and oriented and answers questions well, she simply feels weak and is unable to care for herself at home. - Review of Systems Constitutional: Weakness, No Fever, No Chills Respiratory: No Cough, No Short Of Breath Cardiac: No Chest Pain, No Edema, No Syncope Abdominal/Gastrointestinal: No Abdominal Pain, No Nausea, No Vomiting, No Diarrhea Genitourinary Symptoms: No Dysuria Skin: No Rash Neurological: No Dizziness, No Focal Weakness, No Sensory Changes All Other Systems: Reviewed and Negative Medications & Allergies Home Medications: Home Medication List Carvedilol 12.5 mg [Coreg 12.5 mg] 6.25 mg PO BID 09/18/16 [History Confirmed 10/16/20] Aspirin EC 81 mg [Ecotrin 81 mg] 81 mg PO DAILY 08/17/20 [History Confirmed 10/16/20] Docusate Sodium 100 mg [Colace 100 MG] 1 cap PO QHS 08/17/20 [History Confirmed 10/16/20] Insulin Aspart [Novolog] 1 units SQ ACHS PRN 08/17/20 [History Confirmed 10/16/20] Levothyroxine Sodium 25 Mcg [Synthroid 25 Mcg] 1 tab PO DAILY 08/17/20 [History Confirmed 10/16/20] Metformin HCl 500 mg PO BID 08/17/20 [History Confirmed 10/16/20] Multivitamin/Iron/Folic Acid [Centrum Adults Tablet] 1 tablet PO DAILY 08/17/20 [History Confirmed 10/16/20] Bumetanide 1 mg [Bumex 1 mg] 0.5 tab PO DAILY 10/16/20 [History Confirmed 10/16/20] Tramadol HCl 50 mg [Ultram 50 mg] 100 mg PO BID 10/16/20 [History Confirmed 10/16/20] Allergies/Adverse Reactions: Allergies Allergy/AdvReac Type Severity Reaction Status Date / Time cephalexin [From Keflex] Allergy Intermediate Verified 10/16/20 16:15 - Past Medical History Past Medical History: Yes Neurological History: Dementia ENT History: Cataracts Cardiac History: Angina, Congestive Heart Failure, Hypertension, Myocardial Infarction ([place]) Respiratory History: Bronchitis Endocrine Medical History: Diabetes Type II Musculoskelatal History: Arthritis, Osteoporosis GI Medical History: Gallbladder Disease, Hernia History: Renal Disease Pyscho-Social History: No Pertinent History Reproductive Disorders: Fibroids Comment: anemia - Female History Are you now?: No - Past Surgical History Past Surgical History: Yes Neuro Surgical History: No Pertinent History Cardiac History: Cardiac Catheterization, Cardiac Stent Respiratory Surgery: No Pertinent History GI Surgical History: Cholecystectomy, Hernia Repair Genitourinary Surgical Hx: No Pertinent History Musculskeletal Surgical Hx: No Pertinent History Female Surgical History: Hysterectomy Other Surgical History: cardic stent x 2 - Social History Smoking Status: Never smoker How long have you smoked: "years" Exposure to second hand smoke: No Alcohol: None Drug Use: none - Physical Exam Vital Signs: Vital Signs - 24 hr Temp Pulse Resp BP Pulse Ox 10/17/20 08:00 98.1 F 54 L 20 124/73 93 L 10/17/20 07:07 93 L 10/17/20 05:55 73 20 95 10/17/20 04:00 71 17 95 10/17/20 02:00 98.3 F 70 18 96/49 94 L 10/17/20 00:00 80 18 92 L 10/16/20 22:00 94 H 22 95 10/16/20 19:57 97.8 F 95 H 18 106/73 96 10/16/20 18:00 90 20 92 L 10/16/20 16:17 97.8 F 108 H 20 157/53 95 10/16/20 16:14 95 General Appearance: no apparent distress Neurologic Exam: alert, oriented x 3, cooperative Respiratory Exam: normal breath sounds, lungs clear, No respiratory distress Cardiovascular Exam: murmur (4/6 systolic murmur LSB) Gastrointestinal/Abdomen Exam: soft, normal bowel sounds, No tenderness, No mass Skin Exam: normal color, warm, dry, No rash Results - Labs Lab/Micro Results: Lab Results-Last 24 Hours 10/16/20 10/16/20 10/17/20 Range/Units 21:09 22:38 07:27 POC Glucometer 176 H 106 (74 to 106) mg/dL Urine Color CARIDAD (YELLOW) Urine Appearance CLOUDY (CLEAR) Urine pH 5.0 (5-6) Ur Specific [place] 1.016 (1.005-1.025) Urine Protein 100 (Negative) Urine Ketones NEGATIVE (NEGATIVE) Urine Blood MODERATE (0-5) Adriano/ul Urine Nitrite NEGATIVE (NEGATIVE) Urine Bilirubin NEGATIVE (NEGATIVE) Urine Urobilinogen NEGATIVE (0-1) mg/dL Ur Leukocyte Esterase MODERATE (NEGATIVE) Urine WBC (Auto) >100 (0-5) /HPF Urine RBC (Auto) >101 (0-2) /HPF U Epithel Cells (Auto) NONE (FEW) /HPF Urine Bacteria (Auto) FEW (NEGATIVE) /HPF Urine Mucus (Auto) SLIGHT (NEGATIVE) /HPF Urine Culture Reflexed ORDERED SEPARATELY (NO) Urine Glucose 50 (NEGATIVE) mg/dL Accuchecks Date 10/16/20 Assessment/Plan (1) UTI (urinary tract infection) Current Visit: Yes Status: Acute Assessment & Plan: complicated UTI, E coli with multi drug resistance, continue ertapenem based on sensitivity and allergy to keflex Code(s): N39.0 - URINARY TRACT INFECTION, SITE NOT SPECIFIED (2) COVID-19 Current Visit: Yes Status: Acute Assessment & Plan: ? current active infection vs latent viral shedding, will check IgM and IgG panel. add lovenox 40mg Code(s): U07.1 - COVID-19 (3) Weakness Current Visit: Yes Status: Acute Assessment & Plan: will need ECF placement, wishes to return to [facility], consult d/c planning regarding positive swab and placement criteria etc Code(s): R53.1 - WEAKNESS (4) CHF (congestive heart failure) Current Visit: No Status: Chronic Qualifiers: Code(s): I50.9 - HEART FAILURE, UNSPECIFIED (5) CKD (chronic kidney disease) Current Visit: No Status: Chronic Code(s): N18.9 - CHRONIC KIDNEY DISEASE, UNSPECIFIED (6) Diabetes type 2 with atherosclerosis of arteries of extremities Current Visit: No Status: Chronic Code(s): E11.59 - TYPE 2 DIABETES MELLITUS WITH OTH CIRCULATORY COMPLICATIONS; I70.209 - UNSP ATHSCL [place] ARTERIES OF EXTREMITIES, UNSP EXTREMITY
[2020-10-17] MEDS ORDERED: FOLIC ACID PO SCH (10:00)
[2020-10-17] MEDS ORDERED: MULTIVITAMIN PO SCH (10:00)
[2020-10-17] MEDS ORDERED: IRON PO SCH (10:00)
[2020-10-17] MEDS: ECOTRIN 81 MG PO SCH (10:06)
[2020-10-17] MEDS: THERAGRAN MULTIVITAMIN PO SCH (10:06)
[2020-10-17] MEDS: BUMEX 1 MG PO SCH (10:07)
[2020-10-17] MEDS: SYNTHROID 25 MCG PO SCH (10:07)
[2020-10-17] MEDS: ENOXAPARIN SODIUM SQ SCH (10:08)
[2020-10-17] MEDS: Coreg 6.25 MG PO SCH ×2 (10:08→22:03)
[2020-10-17] MEDS: ULTRAM 50 MG PO SCH ×2 (10:08→22:02)
[2020-10-17 10:38] LABS: Absolute Neutrophil Ct (ANC) 5.33 (1.4-6.9); Basophil (Absolute #) 0.08 (0-0.4); Eosinophil % 12.1 % (0.00-5.0); Eosinophil (Absolute #) 0.95 (0-0.5); Hematocrit 27.1 % (35-47); Hemoglobin 8.1 gm/dl (12.0-16.0); Lymphocyte (Absolute #) 0.88 (1.0-4.6); Lymphocytes % 11.2 % (24.0-44.0); Mean Cell Volume 92.8 fl (78-100); Mean Corpuscular Hemoglobin 27.7 pg (26-32); Mean Corpuscular Hgb Concent. 29.9 g/dl (32-36); Mean Platelet Volume 8.5 fl (7.5-11.0); Monocyte (Absolute #) 0.59 (0.0-1.3); Monocytes % 7.5 % (0.0-12.0); Neutrophil % 68.2 % (36.0-66.0); Platelet Count 295 K/mm3 (150-450); Red Blood Count 2.92 M/mm3 (4.1-5.4); Red Cell Distribution Width 18.9 % (11.5-14.0); White Blood Count 7.8 K/mm3 (4.0-10.5)
[2020-10-17 11:26] LABS: ANION GAP 11.8 MEQ/L (5-15); Calcium 8.9 mg/dL (8.4-10.2); Creatinine 1 1.29 mg/dL (0.52-1.04); EST GLOMERULAR FILTRATION RATE 41.6 ML/MIN; Potassium 4.3 mmol/L (3.5-5.1)
[2020-10-17] MEDS: Invanz 1 GM*** 1 G in Sodium Chloride 100ML MINI-BAG PLUS 100 ML IV SCH (17:04)
[2020-10-17] MEDS: Colace 100 MG PO SCH (22:03)
[2020-10-18 05:26] LABS: Absolute Neutrophil Ct (ANC) 3.74 (1.4-6.9); BASOPHIL % 1.2 % (0.0-0.4); Basophil (Absolute #) 0.08 (0-0.4); Eosinophil % 16.1 % (0.00-5.0); Hematocrit 24.7 % (35-47); Hemoglobin 7.2 gm/dl (12.0-16.0); Lymphocyte (Absolute #) 1.27 (1.0-4.6); Lymphocytes % 18.6 % (24.0-44.0); Mean Cell Volume 92.9 fl (78-100); Mean Corpuscular Hemoglobin 27.1 pg (26-32); Mean Corpuscular Hgb Concent. 29.1 g/dl (32-36); Mean Platelet Volume 8.7 fl (7.5-11.0); Monocyte (Absolute #) 0.65 (0.0-1.3); Monocytes % 9.5 % (0.0-12.0); Neutrophil % 54.6 % (36.0-66.0); Platelet Count 270 K/mm3 (150-450); Red Blood Count 2.66 M/mm3 (4.1-5.4); Red Cell Distribution Width 18.8 % (11.5-14.0); White Blood Count 6.8 K/mm3 (4.0-10.5)
[2020-10-18 05:46] LABS: ANION GAP 10.8 MEQ/L (5-15); Calcium 8.4 mg/dL (8.4-10.2); Creatinine 1 1.47 mg/dL (0.52-1.04); EST GLOMERULAR FILTRATION RATE 35.8 ML/MIN
[2020-10-18] MEDS: Glucophage 500 MG PO SCH ×2 (08:04→16:50)
[2020-10-18] MEDS: ECOTRIN 81 MG PO SCH (09:59)
[2020-10-18] MEDS: BUMEX 1 MG PO SCH (10:00)
[2020-10-18] MEDS: Coreg 6.25 MG PO SCH ×3 (10:01→21:18)
[2020-10-18] MEDS: ENOXAPARIN SODIUM SQ SCH (10:01)
[2020-10-18] MEDS: SYNTHROID 25 MCG PO SCH (10:02)
[2020-10-18] MEDS: THERAGRAN MULTIVITAMIN PO SCH (10:02)
[2020-10-18] MEDS: ULTRAM 50 MG PO SCH ×2 (10:02→21:18)
[2020-10-18] MEDS: Invanz 1 GM*** 1 G in Sodium Chloride 100ML MINI-BAG PLUS 100 ML IV SCH (15:35)
[2020-10-18 15:45] LABS: ABO TYPING A; Antibody Screen NEGATIVE (NEGATIVE); RH TYPING NEGATIVE
[2020-10-18 15:47] LABS: CROSS MATCH (PRBC) COMPATIBLE (COMPATIBLE)
[2020-10-18] MEDS: Sodium Chloride 0.9% 500 ML 500 ML IV SCH (16:17)
--- NOTE | 2020-10-18 16:32 | PCM.NOTE ---
Date and Time: 10/18/20 162 Subjective Assessment: Pt. notes general aches but no other complaints feeling well, but lightheaded with movement. - Review of Systems Constitutional: No Fever, No Chills Eyes: No Symptoms Ears, Nose, & Throat: No Symptoms Respiratory: No Cough, No Short Of Breath Cardiac: No Chest Pain, No Edema, No Syncope Abdominal/Gastrointestinal: No Abdominal Pain, No Nausea, No Vomiting, No Diarrhea Genitourinary Symptoms: No Dysuria Musculoskeletal: No Back Pain, No Neck Pain Skin: No Rash Neurological: No Dizziness, No Focal Weakness, No Sensory Changes Psychological: No Symptoms Endocrine: No Symptoms Hematologic/Lymphatic: No Symptoms Immunological/Allergic: No Symptoms Objective Exam General Appearance: no apparent distress Neurologic Exam: alert, cooperative Skin Exam: normal color, warm, dry, No rash, No petechiae (healing left leg lesions noted , right leg looking fine dressing changed today) Eye Exam: PERRL, EOMI, eyes nml inspection Ears, Nose, Throat Exam: normal ENT inspection Neck Exam: normal inspection, non-tender, supple Respiratory Exam: normal breath sounds, lungs clear, No chest tenderness Cardiovascular Exam: regular rate/rhythm, normal heart sounds Gastrointestinal/Abdomen Exam: soft, normal bowel sounds, distention, ecchymosis, No tenderness, No mass, No guarding Extremity Exam: normal inspection OBJECTIVE DATA Vital Signs: Vital Signs - 24 hr Temp Pulse Resp BP Pulse Ox 10/18/20 15:55 21 10/18/20 14:00 72 20 93 L 10/18/20 11:48 97.8 F 70 23 104/56 93 L 10/18/20 10:00 70 18 93/55 93 L 10/18/20 09:57 20 10/18/20 08:11 92 L 10/18/20 08:00 97.9 F 73 16 104/55 94 L 10/18/20 05:54 71 16 93 L 10/18/20 04:00 72 15 93 L 10/18/20 02:00 98.3 F 78 16 95/53 93 L 10/18/20 00:00 71 17 93 L 10/17/20 22:00 70 19 94 L 10/17/20 20:00 98.1 F 74 18 95/46 96 10/17/20 19:07 93 L 10/17/20 18:00 67 17 95 Pain Assessment - Last Documented Pain Intensity 0 Intake and Output: Intake & Output 10/16/20 10/17/20 10/18/20 10/19/20 11:59 11:59 11:59 11:59 Intake Total 480 810 340 Output Total 625 200 Balance -145 610 340 Weight 86.1 kg 86.1 kg Lab Results: Lab Results-Last 24 Hours 10/17/20 10/17/20 10/18/20 Range/Units 10:25 20:08 05:10 WBC 6.8 (4.0-10.5) K/mm3 RBC 2.66 L (4.1-5.4) M/mm3 Hgb 7.2 L (12.0-16.0) gm/dl Hct 24.7 L (35-47) % MCV 92.9 (78-100) fl MCH 27.1 (26-32) pg MCHC 29.1 L (32-36) g/dl RDW 18.8 H (11.5-14.0) % Plt Count 270 (150-450) K/mm3 MPV 8.7 (7.5-11.0) fl Gran % 54.6 (36.0-66.0) % Eos # (Auto) 1.10 H (0-0.5) Absolute Lymphs (auto) 1.27 (1.0-4.6) Absolute Monos (auto) 0.65 (0.0-1.3) Lymphocytes % 18.6 L (24.0-44.0) % Monocytes % 9.5 (0.0-12.0) % Eosinophils % 16.1 H (0.00-5.0) % Basophils % 1.2 (0.0-0.4) % Absolute Granulocytes 3.74 (1.4-6.9) Basophils # 0.08 (0-0.4) Sodium (137-145) mmol/L Potassium (3.5-5.1) mmol/L Chloride (98-107) mmol/L Carbon Dioxide (22-30) mmol/L Anion Gap (5-15) MEQ/L BUN (7-17) mg/dL Creatinine (0.52-1.04) mg/dL Estimated GFR ML/MIN Glucose (74-106) mg/dL POC Glucometer 144 H (74 to 106) mg/dL Calcium (8.4-10.2) mg/dL SARS-CoV-2 IgG Ab Positive H (Negative) SARS-CoV-2 IgM Ab Pending ABO Group Rh Factor Antibody Screen (NEGATIVE) Crossmatch (COMPATIBLE) 10/18/20 10/18/20 10/18/20 Range/Units 05:10 11:32 14:45 WBC (4.0-10.5) K/mm3 RBC (4.1-5.4) M/mm3 Hgb (12.0-16.0) gm/dl Hct (35-47) % MCV (78-100) fl MCH (26-32) pg MCHC (32-36) g/dl RDW (11.5-14.0) % Plt Count (150-450) K/mm3 MPV (7.5-11.0) fl Gran % (36.0-66.0) % Eos # (Auto) (0-0.5) Absolute Lymphs (auto) (1.0-4.6) Absolute Monos (auto) (0.0-1.3) Lymphocytes % (24.0-44.0) % Monocytes % (0.0-12.0) % Eosinophils % (0.00-5.0) % Basophils % (0.0-0.4) % Absolute Granulocytes (1.4-6.9) Basophils # (0-0.4) Sodium 130 L (137-145) mmol/L Potassium 4.0 (3.5-5.1) mmol/L Chloride 99 (98-107) mmol/L Carbon Dioxide 25 (22-30) mmol/L Anion Gap 10.8 (5-15) MEQ/L BUN 30 H (7-17) mg/dL Creatinine 1.47 H (0.52-1.04) mg/dL Estimated GFR 35.8 ML/MIN Glucose 90 (74-106) mg/dL POC Glucometer 149 H (74 to 106) mg/dL Calcium 8.4 (8.4-10.2) mg/dL SARS-CoV-2 IgG Ab (Negative) SARS-CoV-2 IgM Ab ABO Group A Rh Factor NEGATIVE Antibody Screen NEGATIVE (NEGATIVE) Crossmatch COMPATIBLE (COMPATIBLE) 10/18/20 Range/Units 14:45 WBC (4.0-10.5) K/mm3 RBC (4.1-5.4) M/mm3 Hgb (12.0-16.0) gm/dl Hct (35-47) % MCV (78-100) fl MCH (26-32) pg MCHC (32-36) g/dl RDW (11.5-14.0) % Plt Count (150-450) K/mm3 MPV (7.5-11.0) fl Gran % (36.0-66.0) % Eos # (Auto) (0-0.5) Absolute Lymphs (auto) (1.0-4.6) Absolute Monos (auto) (0.0-1.3) Lymphocytes % (24.0-44.0) % Monocytes % (0.0-12.0) % Eosinophils % (0.00-5.0) % Basophils % (0.0-0.4) % Absolute Granulocytes (1.4-6.9) Basophils # (0-0.4) Sodium (137-145) mmol/L Potassium (3.5-5.1) mmol/L Chloride (98-107) mmol/L Carbon Dioxide (22-30) mmol/L Anion Gap (5-15) MEQ/L BUN (7-17) mg/dL Creatinine (0.52-1.04) mg/dL Estimated GFR ML/MIN Glucose (74-106) mg/dL POC Glucometer (74 to 106) mg/dL Calcium (8.4-10.2) mg/dL SARS-CoV-2 IgG Ab (Negative) SARS-CoV-2 IgM Ab ABO Group Rh Factor Antibody Screen (NEGATIVE) Crossmatch COMPATIBLE (COMPATIBLE) Multi-Disciplinary Progress Notes: Multi-Disciplinary Progress Notes 10/18/20 09:12 Case Management Note by Anu Majano ATTEMPTED TO REACH [facility] TO SEE IF THEY ARE SEEING PATIENT- NO ANSWER, JUST KEPT RINGING Initialized on 10/18/20 09:12 - END OF NOTE 10/18/20 08:52 Case Management Note by Anu Majano LEFT MESSAGE WITH MMM TO DISCUSS PATIENT. Initialized on 10/18/20 08:52 - END OF NOTE Assessment/Plan (1) COVID-19 Current Visit: Yes Status: Acute Assessment & Plan: antibody screen sent off to confirm old or new iinfection, pt. has received 1 of 2 of her covid vaccines. Code(s): U07.1 - COVID-19 (2) UTI (urinary tract infection) Current Visit: Yes Status: Acute Assessment & Plan: continue iv abx Code(s): N39.0 - URINARY TRACT INFECTION, SITE NOT SPECIFIED (3) Weakness Current Visit: Yes Status: Acute Assessment & Plan: anemia noted this appears to be chronic, will transfuse today and recheck levels with a hemoccult of stool sample when availble. Code(s): R53.1 - WEAKNESS
[2020-10-18] MEDS: Lasix 20 MG/2 ML IV PRN ×2 (19:30→23:00)
[2020-10-18] MEDS: Colace 100 MG PO SCH (21:18)
[2020-10-19] MEDS: Sodium Chloride 0.9% 500 ML 500 ML IV SCH ×2 (03:22→12:34)
[2020-10-19 05:10] LABS: BASOPHIL % 1.2 % (0.0-0.4); Basophil (Absolute #) 0.09 (0-0.4); Eosinophil % 12.9 % (0.00-5.0); Eosinophil (Absolute #) 0.99 (0-0.5); Hematocrit 32.9 % (35-47); Hemoglobin 10.2 gm/dl (12.0-16.0); Lymphocyte (Absolute #) 1.25 (1.0-4.6); Lymphocytes % 16.2 % (24.0-44.0); Mean Cell Volume 90.6 fl (78-100); Mean Corpuscular Hemoglobin 28.1 pg (26-32); Mean Platelet Volume 8.4 fl (7.5-11.0); Monocyte (Absolute #) 0.67 (0.0-1.3); Monocytes % 8.7 % (0.0-12.0); Platelet Count 277 K/mm3 (150-450); Red Blood Count 3.63 M/mm3 (4.1-5.4); White Blood Count 7.7 K/mm3 (4.0-10.5)
[2020-10-19 05:20] LABS: Appearance CLOUDY (CLEAR); Bacteria FEW /HPF (NEGATIVE); Bilirubin NEGATIVE (NEGATIVE); Blood SMALL Ery/ul (0-5); Epithelial Cells RARE /HPF (FEW); Glucose NEGATIVE (NEGATIVE); Ketones NEGATIVE (NEGATIVE); Leukocyte Esterase SMALL (NEGATIVE); Mucus SLIGHT /HPF (NEGATIVE); Nitrite NEGATIVE (NEGATIVE); Non-Squamous Epithelial Cells RARE /HPF (FEW); Protein,Urine Dip NEGATIVE (Negative); Specific Gravity 1.006 (1.005-1.025); Urobilinogen NEGATIVE mg/dL (0-1); WBC >100 /HPF (0-5)
[2020-10-19 05:26] LABS: ANION GAP 9.9 MEQ/L (5-15); Calcium 8.6 mg/dL (8.4-10.2); Creatinine 1 1.32 mg/dL (0.52-1.04); EST GLOMERULAR FILTRATION RATE 40.6 ML/MIN; Potassium 3.7 mmol/L (3.5-5.1)
[2020-10-19] MEDS: Glucophage 500 MG PO SCH ×2 (07:47→16:02)
[2020-10-19] MEDS: Coreg 6.25 MG PO SCH ×2 (09:11→21:04)
[2020-10-19] MEDS: BUMEX 1 MG PO SCH (09:16)
[2020-10-19] MEDS: ECOTRIN 81 MG PO SCH (09:16)
[2020-10-19] MEDS: ULTRAM 50 MG PO SCH ×2 (09:16→21:04)
[2020-10-19] MEDS: THERAGRAN MULTIVITAMIN PO SCH (09:16)
[2020-10-19] MEDS: SYNTHROID 25 MCG PO SCH (09:17)
[2020-10-19] MEDS: ENOXAPARIN SODIUM SQ SCH (09:17)
--- NOTE | 2020-10-19 12:25 | PCM.NOTE ---
Date and Time: 10/19/20 1221 Subjective Assessment: Pt. notes tired today, did not sleep well last night, otherwise feeling fine - Review of Systems Constitutional: No Fever, No Chills Eyes: No Symptoms Ears, Nose, & Throat: No Symptoms Respiratory: No Cough, No Short Of Breath Cardiac: No Chest Pain, No Edema, No Syncope Abdominal/Gastrointestinal: No Abdominal Pain, No Nausea, No Vomiting, No Diarrhea Genitourinary Symptoms: No Dysuria Musculoskeletal: No Back Pain, No Neck Pain Skin: No Rash Neurological: No Dizziness, No Focal Weakness, No Sensory Changes Psychological: No Symptoms Endocrine: No Symptoms Hematologic/Lymphatic: No Symptoms Immunological/Allergic: No Symptoms Objective Exam General Appearance: no apparent distress Neurologic Exam: alert, cooperative Skin Exam: normal color, warm, dry, No rash, No petechiae, No jaundice Eye Exam: EOMI Ears, Nose, Throat Exam: normal ENT inspection Neck Exam: normal inspection, non-tender Lymphatic Exam: No adenopathy Respiratory Exam: normal breath sounds, lungs clear, No chest tenderness Cardiovascular Exam: regular rate/rhythm, murmur Gastrointestinal/Abdomen Exam: soft, normal bowel sounds, No tenderness, No distention OBJECTIVE DATA Vital Signs: Vital Signs - 24 hr Temp Pulse Resp BP Pulse Ox 10/19/20 12:00 97.9 F 73 18 112/68 10/19/20 10:00 73 16 94 L 10/19/20 08:00 97.9 F 79 22 98/43 93 L 10/19/20 06:00 98.1 F 71 18 125/66 93 L 10/19/20 03:42 97.9 F 84 18 115/65 92 L 10/19/20 03:40 18 10/19/20 01:41 84 18 92 L 10/19/20 01:38 14 10/18/20 23:42 14 10/18/20 23:41 97.8 F 78 14 107/63 92 L 10/18/20 21:49 98.0 F 83 14 115/61 10/18/20 21:45 18 10/18/20 20:00 18 10/18/20 19:57 97.9 F 81 18 113/57 96 10/18/20 18:57 94 L 10/18/20 18:00 86 20 90 L 10/18/20 16:00 98.0 F 77 16 106/55 94 L 10/18/20 15:55 21 10/18/20 14:00 72 20 93 L Pain Assessment - Last Documented Pain Intensity 0 Intake and Output: Intake & Output 10/17/20 10/18/20 10/19/20 10/20/20 11:59 11:59 11:59 11:59 Intake Total 991 324 7473 Output Total 136 143 3748 Balance -145 610 147 Weight 86.1 kg 86.1 kg Lab Results: Lab Results-Last 24 Hours 10/17/20 10/18/20 10/18/20 Range/Units 10:25 14:45 14:45 WBC (4.0-10.5) K/mm3 RBC (4.1-5.4) M/mm3 Hgb (12.0-16.0) gm/dl Hct (35-47) % MCV (78-100) fl MCH (26-32) pg MCHC (32-36) g/dl RDW (11.5-14.0) % Plt Count (150-450) K/mm3 MPV (7.5-11.0) fl Gran % (36.0-66.0) % Eos # (Auto) (0-0.5) Absolute Lymphs (auto) (1.0-4.6) Absolute Monos (auto) (0.0-1.3) Lymphocytes % (24.0-44.0) % Monocytes % (0.0-12.0) % Eosinophils % (0.00-5.0) % Basophils % (0.0-0.4) % Absolute Granulocytes (1.4-6.9) Basophils # (0-0.4) Sodium (137-145) mmol/L Potassium (3.5-5.1) mmol/L Chloride (98-107) mmol/L Carbon Dioxide (22-30) mmol/L Anion Gap (5-15) MEQ/L BUN (7-17) mg/dL Creatinine (0.52-1.04) mg/dL Estimated GFR ML/MIN Glucose (74-106) mg/dL POC Glucometer (74 to 106) mg/dL Calcium (8.4-10.2) mg/dL Urine Color (YELLOW) Urine Appearance (CLEAR) Urine pH (5-6) Ur Specific [place] (1.005-1.025) Urine Protein (Negative) Urine Ketones (NEGATIVE) Urine Blood (0-5) Adriano/ul Urine Nitrite (NEGATIVE) Urine Bilirubin (NEGATIVE) Urine Urobilinogen (0-1) mg/dL Ur Leukocyte Esterase (NEGATIVE) Urine WBC (Auto) (0-5) /HPF Urine RBC (Auto) (0-2) /HPF U Hyaline Cast (Auto) (0-2) /LPF U Epithel Cells (Auto) (FEW) /HPF Urine Bacteria (Auto) (NEGATIVE) /HPF U Non-Squamous Epi Cells (FEW) /HPF Urine Mucus (Auto) (NEGATIVE) /HPF Urine Culture Reflexed (NO) Urine Glucose (NEGATIVE) mg/dL Stool Occult Blood (NEGATIVE) SARS-CoV-2 IgG Ab Positive H (Negative) SARS-CoV-2 IgM Ab Positive H (Negative) ABO Group A Rh Factor NEGATIVE Antibody Screen NEGATIVE (NEGATIVE) Crossmatch COMPATIBLE COMPATIBLE (COMPATIBLE) 10/18/20 10/18/20 10/18/20 Range/Units 16:25 21:22 Unknown WBC (4.0-10.5) K/mm3 RBC (4.1-5.4) M/mm3 Hgb (12.0-16.0) gm/dl Hct (35-47) % MCV (78-100) fl MCH (26-32) pg MCHC (32-36) g/dl RDW (11.5-14.0) % Plt Count (150-450) K/mm3 MPV (7.5-11.0) fl Gran % (36.0-66.0) % Eos # (Auto) (0-0.5) Absolute Lymphs (auto) (1.0-4.6) Absolute Monos (auto) (0.0-1.3) Lymphocytes % (24.0-44.0) % Monocytes % (0.0-12.0) % Eosinophils % (0.00-5.0) % Basophils % (0.0-0.4) % Absolute Granulocytes (1.4-6.9) Basophils # (0-0.4) Sodium (137-145) mmol/L Potassium (3.5-5.1) mmol/L Chloride (98-107) mmol/L Carbon Dioxide (22-30) mmol/L Anion Gap (5-15) MEQ/L BUN (7-17) mg/dL Creatinine (0.52-1.04) mg/dL Estimated GFR ML/MIN Glucose (74-106) mg/dL POC Glucometer 129 H 134 H (74 to 106) mg/dL Calcium (8.4-10.2) mg/dL Urine Color (YELLOW) Urine Appearance (CLEAR) Urine pH (5-6) Ur Specific [place] (1.005-1.025) Urine Protein (Negative) Urine Ketones (NEGATIVE) Urine Blood (0-5) Adriano/ul Urine Nitrite (NEGATIVE) Urine Bilirubin (NEGATIVE) Urine Urobilinogen (0-1) mg/dL Ur Leukocyte Esterase (NEGATIVE) Urine WBC (Auto) (0-5) /HPF Urine RBC (Auto) (0-2) /HPF U Hyaline Cast (Auto) (0-2) /LPF U Epithel Cells (Auto) (FEW) /HPF Urine Bacteria (Auto) (NEGATIVE) /HPF U Non-Squamous Epi Cells (FEW) /HPF Urine Mucus (Auto) (NEGATIVE) /HPF Urine Culture Reflexed (NO) Urine Glucose (NEGATIVE) mg/dL Stool Occult Blood NEGATIVE (NEGATIVE) SARS-CoV-2 IgG Ab (Negative) SARS-CoV-2 IgM Ab (Negative) ABO Group Rh Factor Antibody Screen (NEGATIVE) Crossmatch (COMPATIBLE) 10/19/20 10/19/20 10/19/20 Range/Units 04:40 04:40 05:06 WBC 7.7 (4.0-10.5) K/mm3 RBC 3.63 L (4.1-5.4) M/mm3 Hgb 10.2 L D (12.0-16.0) gm/dl Hct 32.9 L (35-47) % MCV 90.6 (78-100) fl MCH 28.1 (26-32) pg MCHC 31.0 L (32-36) g/dl RDW 18.0 H (11.5-14.0) % Plt Count 277 (150-450) K/mm3 MPV 8.4 (7.5-11.0) fl Gran % 61.0 (36.0-66.0) % Eos # (Auto) 0.99 H (0-0.5) Absolute Lymphs (auto) 1.25 (1.0-4.6) Absolute Monos (auto) 0.67 (0.0-1.3) Lymphocytes % 16.2 L (24.0-44.0) % Monocytes % 8.7 (0.0-12.0) % Eosinophils % 12.9 H (0.00-5.0) % Basophils % 1.2 (0.0-0.4) % Absolute Granulocytes 4.70 (1.4-6.9) Basophils # 0.09 (0-0.4) Sodium 130 L (137-145) mmol/L Potassium 3.7 (3.5-5.1) mmol/L Chloride 99 (98-107) mmol/L Carbon Dioxide 25 (22-30) mmol/L Anion Gap 9.9 (5-15) MEQ/L BUN 25 H (7-17) mg/dL Creatinine 1.32 H (0.52-1.04) mg/dL Estimated GFR 40.6 ML/MIN Glucose 101 (74-106) mg/dL POC Glucometer (74 to 106) mg/dL Calcium 8.6 (8.4-10.2) mg/dL Urine Color YELLOW (YELLOW) Urine Appearance CLOUDY (CLEAR) Urine pH 5.0 (5-6) Ur Specific [place] 1.006 (1.005-1.025) Urine Protein NEGATIVE (Negative) Urine Ketones NEGATIVE (NEGATIVE) Urine Blood SMALL (0-5) Adriano/ul Urine Nitrite NEGATIVE (NEGATIVE) Urine Bilirubin NEGATIVE (NEGATIVE) Urine Urobilinogen NEGATIVE (0-1) mg/dL Ur Leukocyte Esterase SMALL (NEGATIVE) Urine WBC (Auto) >100 (0-5) /HPF Urine RBC (Auto) 6-10 (0-2) /HPF U Hyaline Cast (Auto) 3-5 (0-2) /LPF U Epithel Cells (Auto) RARE (FEW) /HPF Urine Bacteria (Auto) FEW (NEGATIVE) /HPF U Non-Squamous Epi Cells RARE (FEW) /HPF Urine Mucus (Auto) SLIGHT (NEGATIVE) /HPF Urine Culture Reflexed YES (NO) Urine Glucose NEGATIVE (NEGATIVE) mg/dL Stool Occult Blood (NEGATIVE) SARS-CoV-2 IgG Ab (Negative) SARS-CoV-2 IgM Ab (Negative) ABO Group Rh Factor Antibody Screen (NEGATIVE) Crossmatch (COMPATIBLE) 10/19/20 Range/Units 11:58 WBC (4.0-10.5) K/mm3 RBC (4.1-5.4) M/mm3 Hgb (12.0-16.0) gm/dl Hct (35-47) % MCV (78-100) fl MCH (26-32) pg MCHC (32-36) g/dl RDW (11.5-14.0) % Plt Count (150-450) K/mm3 MPV (7.5-11.0) fl Gran % (36.0-66.0) % Eos # (Auto) (0-0.5) Absolute Lymphs (auto) (1.0-4.6) Absolute Monos (auto) (0.0-1.3) Lymphocytes % (24.0-44.0) % Monocytes % (0.0-12.0) % Eosinophils % (0.00-5.0) % Basophils % (0.0-0.4) % Absolute Granulocytes (1.4-6.9) Basophils # (0-0.4) Sodium (137-145) mmol/L Potassium (3.5-5.1) mmol/L Chloride (98-107) mmol/L Carbon Dioxide (22-30) mmol/L Anion Gap (5-15) MEQ/L BUN (7-17) mg/dL Creatinine (0.52-1.04) mg/dL Estimated GFR ML/MIN Glucose (74-106) mg/dL POC Glucometer 111 H (74 to 106) mg/dL Calcium (8.4-10.2) mg/dL Urine Color (YELLOW) Urine Appearance (CLEAR) Urine pH (5-6) Ur Specific [place] (1.005-1.025) Urine Protein (Negative) Urine Ketones (NEGATIVE) Urine Blood (0-5) Adriano/ul Urine Nitrite (NEGATIVE) Urine Bilirubin (NEGATIVE) Urine Urobilinogen (0-1) mg/dL Ur Leukocyte Esterase (NEGATIVE) Urine WBC (Auto) (0-5) /HPF Urine RBC (Auto) (0-2) /HPF U Hyaline Cast (Auto) (0-2) /LPF U Epithel Cells (Auto) (FEW) /HPF Urine Bacteria (Auto) (NEGATIVE) /HPF U Non-Squamous Epi Cells (FEW) /HPF Urine Mucus (Auto) (NEGATIVE) /HPF Urine Culture Reflexed (NO) Urine Glucose (NEGATIVE) mg/dL Stool Occult Blood (NEGATIVE) SARS-CoV-2 IgG Ab (Negative) SARS-CoV-2 IgM Ab (Negative) ABO Group Rh Factor Antibody Screen (NEGATIVE) Crossmatch (COMPATIBLE) Multi-Disciplinary Progress Notes: Multi-Disciplinary Progress Notes 10/19/20 11:09 Case Management Note by Anu Majano 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 ALONG WITH HER COVID HX FROM [facility] TO DETERMINE CURRENT COVID STATUS- WILL NEED THIS STATUS BEFORE PLACEMENT CAN BE ESTABLISHED Initialized on 10/19/20 11:09 - END OF NOTE 10/19/20 08:37 Case Management Note by Anu Majano PER [facility] AT [facility] PATIENT TESTED COVID + ON 09/07/2020 AND WAS IN THEIR COVID UNIT FROM THEN UNTIL 09/20/20 Initialized on 10/19/20 08:37 - END OF NOTE Assessment/Plan (1) COVID-19 Current Visit: Yes Status: Acute Assessment & Plan: IgG and IgM positive question related to new infection or vaccination from 10/14, will check d-dimer if lower than prior testing will not begin remdisivir as she is having no symptoms of covid at this time. Code(s): U07.1 - COVID-19 (2) UTI (urinary tract infection) Current Visit: Yes Status: Acute Assessment & Plan: recheck and culture of urine today, continue iv abx and will likely need these to continue via iv infusion as op infusions Code(s): N39.0 - URINARY TRACT INFECTION, SITE NOT SPECIFIED (3) Weakness Current Visit: Yes Status: Acute Assessment & Plan: no changes at this time, hgb up to 10.2 today and improvement of the bmp also noted Code(s): R53.1 - WEAKNESS
[2020-10-19] MEDS ORDERED: PHARMACY DOSING REQUEST MC ONE (13:20)
[2020-10-19] MEDS ORDERED: REMDESIVIR 200 MG in Sodium Chloride 0.9% 250 ML 250 ML IV ONE (14:00)
[2020-10-19] MEDS: Invanz 1 GM*** 1 G in Sodium Chloride 100ML MINI-BAG PLUS 100 ML IV SCH (16:02)
[2020-10-19] MEDS: Colace 100 MG PO SCH (21:04)
[2020-10-20 05:01] LABS: BASOPHIL % 0.9 % (0.0-0.4); Basophil (Absolute #) 0.06 (0-0.4); Eosinophil % 16.9 % (0.00-5.0); Eosinophil (Absolute #) 1.08 (0-0.5); Hematocrit 33.2 % (35-47); Hemoglobin 9.9 gm/dl (12.0-16.0); Lymphocyte (Absolute #) 1.06 (1.0-4.6); Lymphocytes % 16.6 % (24.0-44.0); Mean Corpuscular Hemoglobin 27.7 pg (26-32); Mean Corpuscular Hgb Concent. 29.8 g/dl (32-36); Mean Platelet Volume 8.4 fl (7.5-11.0); Monocyte (Absolute #) 0.58 (0.0-1.3); Monocytes % 9.1 % (0.0-12.0); Neutrophil % 56.5 % (36.0-66.0); Platelet Count 276 K/mm3 (150-450); Red Blood Count 3.57 M/mm3 (4.1-5.4); Red Cell Distribution Width 18.7 % (11.5-14.0); White Blood Count 6.4 K/mm3 (4.0-10.5)
[2020-10-20 05:14] LABS: ANION GAP 9.5 MEQ/L (5-15); Calcium 8.6 mg/dL (8.4-10.2); Creatinine 1 1.15 mg/dL (0.52-1.04); EST GLOMERULAR FILTRATION RATE 47.6 ML/MIN; Potassium 3.7 mmol/L (3.5-5.1)
[2020-10-20 05:18] LABS: INR 1.31 (0.8-3.0); PROTIME 14.8 SECONDS (9.95-12.35)
[2020-10-20] MEDS: Coreg 6.25 MG PO SCH ×2 (10:06→21:08)
[2020-10-20] MEDS: Decadron 4 MG INJ IV SCH (10:06)
[2020-10-20] MEDS: SYNTHROID 25 MCG PO SCH (10:06)
[2020-10-20] MEDS: ULTRAM 50 MG PO SCH ×2 (10:06→21:08)
[2020-10-20] MEDS: ECOTRIN 81 MG PO SCH (10:06)
[2020-10-20] MEDS: ENOXAPARIN SODIUM SQ SCH ×2 (10:07→21:08)
[2020-10-20] MEDS: Glucophage 500 MG PO SCH ×2 (10:07→16:59)
[2020-10-20] MEDS: BUMEX 1 MG PO SCH (10:12)
[2020-10-20] MEDS: THERAGRAN MULTIVITAMIN PO SCH (10:13)
[2020-10-20] MEDS: VITAMIN D PO SCH (10:18)
[2020-10-20] MEDS: REMDESIVIR 100 MG in Sodium Chloride 0.9% 100 ML IVPB 100 ML IV SCH (13:56)
[2020-10-20] MEDS: Invanz 1 GM*** 1 G in Sodium Chloride 100ML MINI-BAG PLUS 100 ML IV SCH (16:59)
[2020-10-20] MEDS: Colace 100 MG PO SCH (21:08)
[2020-10-20] MEDS: HUMALOG SQ PRN (21:32)
[2020-10-21 05:21] LABS: Absolute Neutrophil Ct (ANC) 5.89 (1.4-6.9); BASOPHIL % 0.3 % (0.0-0.4); Basophil (Absolute #) 0.02 (0-0.4); Eosinophil (Absolute #) 0.08 (0-0.5); Hematocrit 30.7 % (35-47); Hemoglobin 9.2 gm/dl (12.0-16.0); Lymphocyte (Absolute #) 1.05 (1.0-4.6); Lymphocytes % 13.8 % (24.0-44.0); Mean Cell Volume 91.9 fl (78-100); Mean Corpuscular Hemoglobin 27.5 pg (26-32); Mean Platelet Volume 8.6 fl (7.5-11.0); Monocyte (Absolute #) 0.58 (0.0-1.3); Monocytes % 7.6 % (0.0-12.0); Neutrophil % 77.3 % (36.0-66.0); Platelet Count 281 K/mm3 (150-450); Red Blood Count 3.34 M/mm3 (4.1-5.4); Red Cell Distribution Width 18.3 % (11.5-14.0); White Blood Count 7.6 K/mm3 (4.0-10.5)
[2020-10-21 05:37] LABS: ANION GAP 8.3 MEQ/L (5-15); Calcium 8.6 mg/dL (8.4-10.2); Creatinine 1 1.22 mg/dL (0.52-1.04); EST GLOMERULAR FILTRATION RATE 44.4 ML/MIN
[2020-10-21] MEDS: Glucophage 500 MG PO SCH ×2 (08:17→16:28)
--- NOTE | 2020-10-21 09:06 | PCM.NOTE ---
Date and Time: 10/20/20902 Subjective Assessment: Pt. feeling fatigued and notes upper body strength - Review of Systems Constitutional: No Fever, No Chills Eyes: No Symptoms Ears, Nose, & Throat: No Symptoms Respiratory: No Cough, No Short Of Breath Cardiac: No Chest Pain, No Edema, No Syncope Abdominal/Gastrointestinal: No Abdominal Pain, No Nausea, No Vomiting, No Diarrhea Genitourinary Symptoms: No Dysuria Musculoskeletal: No Back Pain, No Neck Pain Skin: No Rash Neurological: No Dizziness, No Focal Weakness, No Sensory Changes Psychological: No Symptoms Endocrine: No Symptoms Hematologic/Lymphatic: No Symptoms Immunological/Allergic: No Symptoms Objective Exam General Appearance: no apparent distress Neurologic Exam: alert, cooperative Skin Exam: normal color, warm, dry, No rash, No petechiae Wound Assessment: Skin/Wound Assessment Wound/Incision Assessment Start: 10/20/20 17:46 Text: Status: Active Freq: Protocol: Document 10/20/20 14:00 MJ (Rec: 10/20/20 17:49 MJ [id number]) Wound/Incision Assessment Right Lower Wound Assessment Shift Assessment Wound Type Stasis Ulcer Dressing Status Changed Drainage Amount Minimal Drainage Description Serous General Appearance Unapproximated Length (cm) (cm) 5 Width (cm) (cm) 3 Wound Bed Greatest Portion Red (Granulation) Surrounding Tissue [place] Topical Solution/Irrigant Saline Irrigant Primary Dressing Non-Adherent Gauze Pads Ears, Nose, Throat Exam: normal ENT inspection Neck Exam: normal inspection, non-tender, No supple, No full range of motion Respiratory Exam: normal breath sounds, lungs clear, No chest tenderness Cardiovascular Exam: regular rate/rhythm, normal heart sounds, murmur Gastrointestinal/Abdomen Exam: soft, normal bowel sounds Extremity Exam: normal inspection OBJECTIVE DATA Vital Signs: Vital Signs - 24 hr Temp Pulse Resp BP Pulse Ox 10/21/20 07:47 97.5 F 69 20 88/45 97 10/21/20 06:58 97 10/21/20 06:00 97.5 F 71 18 93/50 95 10/21/20 04:00 72 16 97 10/21/20 02:00 97.7 F 80 18 94/57 95 10/20/20 23:45 18 10/20/20 23:43 97.6 F 69 18 103/45 96 10/20/20 21:51 14 10/20/20 21:47 98.3 F 72 14 128/54 98 10/20/20 20:12 97 10/20/20 20:00 98.4 F 82 16 123/58 97 10/20/20 17:49 20 10/20/20 17:44 74 18 98 10/20/20 16:00 18 10/20/20 15:25 98.0 F 74 18 118/60 93 L 10/20/20 14:00 71 18 95 10/20/20 12:00 18 10/20/20 11:37 98.6 F 72 18 120/67 91 L 10/20/20 10:00 76 24 94 L Pain Assessment - Last Documented Pain Intensity 0 Intake and Output: Intake & Output 10/18/20 10/19/20 10/20/20 10/21/20 11:59 11:59 11:59 11:59 Intake Total 810 2347 770 360 Output Total 200 2200 1850 1050 Balance 610 227 -8020 -690 Weight 86.1 kg 88.6 kg 88.5 kg Lab Results: Lab Results-Last 24 Hours 10/20/20 10/20/20 10/20/20 Range/Units 11:31 17:00 21:27 WBC (4.0-10.5) K/mm3 RBC (4.1-5.4) M/mm3 Hgb (12.0-16.0) gm/dl Hct (35-47) % MCV (78-100) fl MCH (26-32) pg MCHC (32-36) g/dl RDW (11.5-14.0) % Plt Count (150-450) K/mm3 MPV (7.5-11.0) fl Gran % (36.0-66.0) % Eos # (Auto) (0-0.5) Absolute Lymphs (auto) (1.0-4.6) Absolute Monos (auto) (0.0-1.3) Lymphocytes % (24.0-44.0) % Monocytes % (0.0-12.0) % Eosinophils % (0.00-5.0) % Basophils % (0.0-0.4) % Absolute Granulocytes (1.4-6.9) Basophils # (0-0.4) D-Dimer (215-500) ng/mL Sodium (137-145) mmol/L Potassium (3.5-5.1) mmol/L Chloride (98-107) mmol/L Carbon Dioxide (22-30) mmol/L Anion Gap (5-15) MEQ/L BUN (7-17) mg/dL Creatinine (0.52-1.04) mg/dL Estimated GFR ML/MIN Glucose (74-106) mg/dL POC Glucometer 133 H 186 H 226 H (74 to 106) mg/dL Calcium (8.4-10.2) mg/dL 10/21/20 10/21/20 10/21/20 Range/Units 05:05 05:05 05:05 WBC 7.6 (4.0-10.5) K/mm3 RBC 3.34 L (4.1-5.4) M/mm3 Hgb 9.2 L (12.0-16.0) gm/dl Hct 30.7 L (35-47) % MCV 91.9 (78-100) fl MCH 27.5 (26-32) pg MCHC 30.0 L (32-36) g/dl RDW 18.3 H (11.5-14.0) % Plt Count 281 (150-450) K/mm3 MPV 8.6 (7.5-11.0) fl Gran % 77.3 H (36.0-66.0) % Eos # (Auto) 0.08 (0-0.5) Absolute Lymphs (auto) 1.05 (1.0-4.6) Absolute Monos (auto) 0.58 (0.0-1.3) Lymphocytes % 13.8 L (24.0-44.0) % Monocytes % 7.6 (0.0-12.0) % Eosinophils % 1.0 (0.00-5.0) % Basophils % 0.3 (0.0-0.4) % Absolute Granulocytes 5.89 (1.4-6.9) Basophils # 0.02 (0-0.4) D-Dimer 1549 H* (215-500) ng/mL Sodium 133 L (137-145) mmol/L Potassium 4.0 (3.5-5.1) mmol/L Chloride 101 (98-107) mmol/L Carbon Dioxide 28 (22-30) mmol/L Anion Gap 8.3 (5-15) MEQ/L BUN 28 H (7-17) mg/dL Creatinine 1.22 H (0.52-1.04) mg/dL Estimated GFR 44.4 ML/MIN Glucose 119 H (74-106) mg/dL POC Glucometer (74 to 106) mg/dL Calcium 8.6 (8.4-10.2) mg/dL Multi-Disciplinary Progress Notes: Multi-Disciplinary Progress Notes 10/20/20 16:26 Physical Therapy Note by Inez Mckay SPOKE W/ NSG STAFF IN COVID UNIT AND D/C PLANNING. PT. IS REQUIRING 2-2 PEOPLE TO TRANSFER AT THIS TIME D/T SEVERE WEAKNESS AND POOR MOTIVATION. PT. NEEDS TO BUILD TOLERANCE TO BED MOBILITY AND TRANSFERS BEFORE SKILLED INTEREVNTION IS APPROPRIATE. NSGTO INCREASE PT. FUNCTIONAL MOBILITY TO PREPARE PT. FOR SKILLED INTERVENTION. WILL ASSIST NSG W/ TRANSFERS NEEDED. PLAN IS TO D/C TO [facility] FOR REHAB LONG-TERM REHAB IS LIKELY NEEDED. INEZ MCKAY, PT Initialized on 10/20/20 16:26 - END OF NOTE 10/20/20 12:32 Case Management Note by Anu Majano FAMILY UPDATED ON DC PLAN AT THIS TIME- HE VERIFIED UNDERSTANDING Initialized on 10/20/20 12:32 - END OF NOTE 10/20/20 12:25 Case Management Note by Anu Majano AFTER SPEAKING WITH LULA AT [facility] TODAY, SINCE WE ARE TREATING PATIENT IF SHE HAS AN ACTIVE COVID INFECTION- THEY WILL NOT BE ABLE TO TAKE PATIENT UNTIL 10/25/20 (THEIR 10 DAY ISOLATION PROTOCOL DOES NOT START UNTIL DAY AFTER POSITIVE TEST, IN HER CASE 10/15/20) REFERRAL PACKET SENT TO [facility] AT THIS TIME SO THEY CAN GO AHEAD AND GET THE STAY APPROVED BY INSURANCE WITH TENTATIVE ADMIT DATE OF 10/25/20 Initialized on 10/20/20 12:25 - END OF NOTE Assessment/Plan (1) COVID-19 Current Visit: Yes Status: Acute Assessment & Plan: d-dimer elevated, will add full dose lovenox, add vitamin D, remdisivir added Code(s): U07.1 - COVID-19 (2) UTI (urinary tract infection) Current Visit: Yes Status: Acute Assessment & Plan: continue iv abx Code(s): N39.0 - URINARY TRACT INFECTION, SITE NOT SPECIFIED (3) Weakness Current Visit: Yes Status: Acute Assessment & Plan: notes very weak Code(s): R53.1 - WEAKNESS
--- NOTE | 2020-10-21 09:08 | PCM.NOTE ---
Date and Time: 10/21/20905 Subjective Assessment: Pt. notes very weak otherwise doing well - Review of Systems Constitutional: No Fever, No Chills Eyes: No Symptoms Ears, Nose, & Throat: No Symptoms Respiratory: No Cough, No Short Of Breath Cardiac: No Chest Pain, No Edema, No Syncope Abdominal/Gastrointestinal: No Abdominal Pain, No Nausea, No Vomiting, No Diarrhea Genitourinary Symptoms: No Dysuria Musculoskeletal: No Back Pain, No Neck Pain Skin: No Rash Neurological: No Dizziness, No Focal Weakness, No Sensory Changes Psychological: No Symptoms Endocrine: No Symptoms Hematologic/Lymphatic: No Symptoms Immunological/Allergic: No Symptoms Objective Exam General Appearance: no apparent distress Neurologic Exam: alert, cooperative Skin Exam: normal color, warm, dry, No rash, No petechiae Wound Assessment: Skin/Wound Assessment Wound/Incision Assessment Start: 10/20/20 17:46 Text: Status: Active Freq: Protocol: Document 10/20/20 14:00 MJ (Rec: 10/20/20 17:49 MJ [id number]) Wound/Incision Assessment Right Lower Wound Assessment Shift Assessment Wound Type Stasis Ulcer Dressing Status Changed Drainage Amount Minimal Drainage Description Serous General Appearance Unapproximated Length (cm) (cm) 5 Width (cm) (cm) 3 Wound Bed Greatest Portion Red (Granulation) Surrounding Tissue [place] Topical Solution/Irrigant Saline Irrigant Primary Dressing Non-Adherent Gauze Pads Eye Exam: PERRL, EOMI, eyes nml inspection Ears, Nose, Throat Exam: normal ENT inspection, moist mucous membranes Neck Exam: normal inspection, non-tender, supple Lymphatic Exam: No adenopathy Respiratory Exam: normal breath sounds, lungs clear, No chest tenderness Cardiovascular Exam: regular rate/rhythm, normal heart sounds, murmur Gastrointestinal/Abdomen Exam: soft, No normal bowel sounds, No tenderness OBJECTIVE DATA Vital Signs: Vital Signs - 24 hr Temp Pulse Resp BP Pulse Ox 10/21/20 07:47 97.5 F 69 20 88/45 97 10/21/20 06:58 97 10/21/20 06:00 97.5 F 71 18 93/50 95 10/21/20 04:00 72 16 97 10/21/20 02:00 97.7 F 80 18 94/57 95 10/20/20 23:45 18 10/20/20 23:43 97.6 F 69 18 103/45 96 02/11/21 21:51 14 10/20/20 21:47 98.3 F 72 14 128/54 98 10/20/20 20:12 97 10/20/20 20:00 98.4 F 82 16 123/58 97 10/20/20 17:49 20 10/20/20 17:44 74 18 98 10/20/20 16:00 18 10/20/20 15:25 98.0 F 74 18 118/60 93 L 10/20/20 14:00 71 18 95 10/20/20 12:00 18 10/20/20 11:37 98.6 F 72 18 120/67 91 L 10/20/20 10:00 76 24 94 L Pain Assessment - Last Documented Pain Intensity 0 Intake and Output: Intake & Output 10/18/20 10/19/20 10/20/20 10/21/20 11:59 11:59 11:59 11:59 Intake Total 810 2347 770 360 Output Total 200 2200 1850 1050 Balance 610 454 -3349 -690 Weight 86.1 kg 88.6 kg 88.5 kg Lab Results: Lab Results-Last 24 Hours 10/20/20 10/20/20 10/20/20 Range/Units 11:31 17:00 21:27 WBC (4.0-10.5) K/mm3 RBC (4.1-5.4) M/mm3 Hgb (12.0-16.0) gm/dl Hct (35-47) % MCV (78-100) fl MCH (26-32) pg MCHC (32-36) g/dl RDW (11.5-14.0) % Plt Count (150-450) K/mm3 MPV (7.5-11.0) fl Gran % (36.0-66.0) % Eos # (Auto) (0-0.5) Absolute Lymphs (auto) (1.0-4.6) Absolute Monos (auto) (0.0-1.3) Lymphocytes % (24.0-44.0) % Monocytes % (0.0-12.0) % Eosinophils % (0.00-5.0) % Basophils % (0.0-0.4) % Absolute Granulocytes (1.4-6.9) Basophils # (0-0.4) D-Dimer (215-500) ng/mL Sodium (137-145) mmol/L Potassium (3.5-5.1) mmol/L Chloride (98-107) mmol/L Carbon Dioxide (22-30) mmol/L Anion Gap (5-15) MEQ/L BUN (7-17) mg/dL Creatinine (0.52-1.04) mg/dL Estimated GFR ML/MIN Glucose (74-106) mg/dL POC Glucometer 133 H 186 H 226 H (74 to 106) mg/dL Calcium (8.4-10.2) mg/dL 10/21/20 10/21/20 10/21/20 Range/Units 05:05 05:05 05:05 WBC 7.6 (4.0-10.5) K/mm3 RBC 3.34 L (4.1-5.4) M/mm3 Hgb 9.2 L (12.0-16.0) gm/dl Hct 30.7 L (35-47) % MCV 91.9 (78-100) fl MCH 27.5 (26-32) pg MCHC 30.0 L (32-36) g/dl RDW 18.3 H (11.5-14.0) % Plt Count 281 (150-450) K/mm3 MPV 8.6 (7.5-11.0) fl Gran % 77.3 H (36.0-66.0) % Eos # (Auto) 0.08 (0-0.5) Absolute Lymphs (auto) 1.05 (1.0-4.6) Absolute Monos (auto) 0.58 (0.0-1.3) Lymphocytes % 13.8 L (24.0-44.0) % Monocytes % 7.6 (0.0-12.0) % Eosinophils % 1.0 (0.00-5.0) % Basophils % 0.3 (0.0-0.4) % Absolute Granulocytes 5.89 (1.4-6.9) Basophils # 0.02 (0-0.4) D-Dimer 1549 H* (215-500) ng/mL Sodium 133 L (137-145) mmol/L Potassium 4.0 (3.5-5.1) mmol/L Chloride 101 (98-107) mmol/L Carbon Dioxide 28 (22-30) mmol/L Anion Gap 8.3 (5-15) MEQ/L BUN 28 H (7-17) mg/dL Creatinine 1.22 H (0.52-1.04) mg/dL Estimated GFR 44.4 ML/MIN Glucose 119 H (74-106) mg/dL POC Glucometer (74 to 106) mg/dL Calcium 8.6 (8.4-10.2) mg/dL Multi-Disciplinary Progress Notes: Multi-Disciplinary Progress Notes 10/20/20 16:26 Physical Therapy Note by Inez Mckay SPOKE W/ NSG STAFF IN COVID UNIT AND D/C PLANNING. PT. IS REQUIRING 2-2 PEOPLE TO TRANSFER AT THIS TIME D/T SEVERE WEAKNESS AND POOR MOTIVATION. PT. NEEDS TO BUILD TOLERANCE TO BED MOBILITY AND TRANSFERS BEFORE SKILLED INTEREVNTION IS APPROPRIATE. NSGTO INCREASE PT. FUNCTIONAL MOBILITY TO PREPARE PT. FOR SKILLED INTERVENTION. WILL ASSIST NSG W/ TRANSFERS NEEDED. PLAN IS TO D/C TO [facility] FOR REHAB LONG-TERM REHAB IS LIKELY NEEDED. INEZ MCKAY, PT Initialized on 10/20/20 16:26 - END OF NOTE 10/20/20 12:32 Case Management Note by Anu Majano FAMILY UPDATED ON DC PLAN AT THIS TIME- HE VERIFIED UNDERSTANDING Initialized on 10/20/20 12:32 - END OF NOTE 10/20/20 12:25 Case Management Note by Anu Majano AFTER SPEAKING WITH LULA AT [facility] TODAY, SINCE WE ARE TREATING PATIENT IF SHE HAS AN ACTIVE COVID INFECTION- THEY WILL NOT BE ABLE TO TAKE PATIENT UNTIL 10/25/20 (THEIR 10 DAY ISOLATION PROTOCOL DOES NOT START UNTIL DAY AFTER POSITIVE TEST, IN HER CASE 10/15/20) REFERRAL PACKET SENT TO [facility] AT THIS TIME SO THEY CAN GO AHEAD AND GET THE STAY APPROVED BY INSURANCE WITH TENTATIVE ADMIT DATE OF 10/25/20 Initialized on 10/20/20 12:25 - END OF NOTE Assessment/Plan (1) COVID-19 Current Visit: Yes Status: Acute Assessment & Plan: d-dimer correcting after intiated treatment and added dexamethasone last night Code(s): U07.1 - COVID-19 (2) UTI (urinary tract infection) Current Visit: Yes Status: Acute Assessment & Plan: continue iv abx for resistant matthew associated catheter Code(s): N39.0 - URINARY TRACT INFECTION, SITE NOT SPECIFIED (3) Weakness Current Visit: Yes Status: Acute Assessment & Plan: PT eval and treat Code(s): R53.1 - WEAKNESS
[2020-10-21] MEDS: BUMEX 1 MG PO SCH (09:50)
[2020-10-21] MEDS: Sodium Chloride 0.9% 1000 ML 1,000 ML IV SCH (09:50)
[2020-10-21] MEDS: Coreg 3.125 MG PO SCH ×2 (09:51→21:01)
[2020-10-21] MEDS: Decadron 4 MG INJ IV SCH (09:51)
[2020-10-21] MEDS: ENOXAPARIN SODIUM SQ SCH ×2 (09:51→21:03)
[2020-10-21] MEDS: ECOTRIN 81 MG PO SCH (09:51)
[2020-10-21] MEDS: ULTRAM 50 MG PO SCH ×3 (09:52→22:50)
[2020-10-21] MEDS: VITAMIN D PO SCH (09:52)
[2020-10-21] MEDS: SYNTHROID 25 MCG PO SCH (09:52)
[2020-10-21] MEDS: THERAGRAN MULTIVITAMIN PO SCH (09:52)
[2020-10-21] MEDS: REMDESIVIR 100 MG in Sodium Chloride 0.9% 100 ML IVPB 100 ML IV SCH (13:57)
[2020-10-21] MEDS: Invanz 1 GM*** 1 G in Sodium Chloride 100ML MINI-BAG PLUS 100 ML IV SCH (16:28)
[2020-10-21] MEDS: HUMALOG SQ PRN ×2 (17:03→21:02)
[2020-10-21] MEDS: Colace 100 MG PO SCH (21:01)
[2020-10-22] MEDS: ULTRAM 50 MG PO SCH ×2 (05:55→18:44)
[2020-10-22 06:42] LABS: Absolute Neutrophil Ct (ANC) 6.99 (1.4-6.9); BASOPHIL % 0.3 % (0.0-0.4); Basophil (Absolute #) 0.03 (0-0.4); Eosinophil % 1.9 % (0.00-5.0); Eosinophil (Absolute #) 0.18 (0-0.5); Hematocrit 30.6 % (35-47); Hemoglobin 9.1 gm/dl (12.0-16.0); Lymphocyte (Absolute #) 1.51 (1.0-4.6); Lymphocytes % 15.9 % (24.0-44.0); Mean Cell Volume 93.6 fl (78-100); Mean Corpuscular Hemoglobin 27.8 pg (26-32); Mean Corpuscular Hgb Concent. 29.7 g/dl (32-36); Mean Platelet Volume 8.5 fl (7.5-11.0); Monocytes % 8.4 % (0.0-12.0); Neutrophil % 73.5 % (36.0-66.0); Platelet Count 316 K/mm3 (150-450); Red Blood Count 3.27 M/mm3 (4.1-5.4); Red Cell Distribution Width 18.8 % (11.5-14.0); White Blood Count 9.5 K/mm3 (4.0-10.5)
[2020-10-22 06:56] LABS: INR 1.41 (0.8-3.0)
[2020-10-22 06:58] LABS: ANION GAP 11.2 MEQ/L (5-15); Creatinine 1 1.03 mg/dL (0.52-1.04); Potassium 4.1 mmol/L (3.5-5.1)
[2020-10-22] MEDS ORDERED: Decadron 4 MG INJ IV SCH (07:17)
[2020-10-22] MEDS: Glucophage 500 MG PO SCH ×2 (08:13→17:00)
[2020-10-22] MEDS: NORCO 5/325 MG PO PRN ×3 (09:02→20:09)
[2020-10-22] MEDS: SYNTHROID 25 MCG PO SCH (09:02)
[2020-10-22] MEDS: Coreg 3.125 MG PO SCH ×2 (09:02→21:07)
[2020-10-22] MEDS: ECOTRIN 81 MG PO SCH (09:02)
[2020-10-22] MEDS: BUMEX 1 MG PO SCH (09:03)
[2020-10-22] MEDS: VITAMIN D PO SCH (09:04)
[2020-10-22] MEDS: ENOXAPARIN SODIUM SQ SCH ×2 (09:20→21:07)
[2020-10-22] MEDS: THERAGRAN MULTIVITAMIN PO SCH (10:47)
[2020-10-22] MEDS: Sodium Chloride 0.9% 1000 ML 1,000 ML IV SCH (10:49)
[2020-10-22] MEDS: REMDESIVIR 100 MG in Sodium Chloride 0.9% 100 ML IVPB 100 ML IV SCH (13:48)
[2020-10-22] MEDS: Invanz 1 GM*** 1 G in Sodium Chloride 100ML MINI-BAG PLUS 100 ML IV SCH (17:00)
--- NOTE | 2020-10-22 18:23 | XRAY ---
Indication: Pain and swelling following injury. Comparison: May 11, 2012. 2 view right humerus again demonstrates intramedullary paco with proximal/distal screws fixating old shaft fracture. Again moderate glenohumeral/AC degenerative arthropathy and osteopenia. Visualized right lung demonstrates new moderate infiltrate/atelectasis/effusion. Comment: Preliminary interpretation was made by [facility]. No critical discrepancy.
[2020-10-22] MEDS: Colace 100 MG PO SCH (21:07)
[2020-10-22] MEDS ORDERED: MORPHINE SULFATE 2 MG INJ IV PRN (22:09)
[2020-10-23] MEDS: NORCO 5/325 MG PO PRN ×2 (00:39→04:39)
[2020-10-23] MEDS ORDERED: MORPHINE SULFATE 2 MG INJ IV PRN (07:16)
[2020-10-23 07:33] LABS: ALBUMIN 2.4 g/dL (3.5-5.0); ANION GAP 11.5 MEQ/L (5-15); Calcium 8.3 mg/dL (8.4-10.2); Creatinine 1 1.26 mg/dL (0.52-1.04); EST GLOMERULAR FILTRATION RATE 42.8 ML/MIN; Hematocrit 20.3 % (35-47); Mean Cell Volume 95.3 fl (78-100); Mean Corpuscular Hemoglobin 28.2 pg (26-32); Mean Corpuscular Hgb Concent. 29.6 g/dl (32-36); Mean Platelet Volume 8.8 fl (7.5-11.0); Platelet Count 286 K/mm3 (150-450); Potassium 4.2 mmol/L (3.5-5.1); Red Blood Count 2.13 M/mm3 (4.1-5.4); Red Cell Distribution Width 18.6 % (11.5-14.0); White Blood Count 8.4 K/mm3 (4.0-10.5)
[2020-10-23] MEDS: Glucophage 500 MG PO SCH ×2 (07:52→16:55)
[2020-10-23] MEDS: Dulcolax 10 MG SUPP PR PRN (07:57)
[2020-10-23 08:55] LABS: INR 1.72 (0.8-3.0); PROTIME 19.6 SECONDS (9.95-12.35)
[2020-10-23] MEDS: ECOTRIN 81 MG PO SCH (09:37)
[2020-10-23] MEDS: BUMEX 1 MG PO SCH (09:37)
[2020-10-23] MEDS: ULTRAM 50 MG PO SCH (09:37)
[2020-10-23] MEDS: THERAGRAN MULTIVITAMIN PO SCH (09:37)
[2020-10-23] MEDS: VITAMIN D PO SCH (09:37)
[2020-10-23] MEDS: SYNTHROID 25 MCG PO SCH (09:37)
[2020-10-23] MEDS: Coreg 3.125 MG PO SCH (09:38)
[2020-10-23] MEDS: Sodium Chloride 0.9% 1000 ML 1,000 ML IV SCH (09:39)
[2020-10-23 10:35] LABS: ABO TYPING A; Antibody Screen NEGATIVE (NEGATIVE); RH TYPING NEGATIVE
[2020-10-23 10:37] LABS: CROSS MATCH (PRBC) COMPATIBLE (COMPATIBLE)
[2020-10-23] MEDS ORDERED: Sodium Chloride 0.9% 250 ML 250 ML IV SCH (10:45)
[2020-10-23] MEDS: REMDESIVIR 100 MG in Sodium Chloride 0.9% 100 ML IVPB 100 ML IV SCH (15:03)
[2020-10-23] MEDS ORDERED: Sodium Chloride 0.9% 500 ML 500 ML IV ONE (16:27)
[2020-10-23 16:31] LABS: Hematocrit 24.2 % (35-47); Hemoglobin 7.5 gm/dl (12.0-16.0)
[2020-10-23] MEDS: Invanz 1 GM*** 1 G in Sodium Chloride 100ML MINI-BAG PLUS 100 ML IV SCH (16:55)
[2020-10-23] MEDS ORDERED: NORCO 5/325 MG PO PRN (17:23)
--- NOTE | 2020-10-23 17:28 | PCM.NOTE ---
Date and Time: 10/23/20 172 Subjective Assessment: patient seen at request of Dr John, has recieved 2 units of packed red cells, hemoglobin improved to 7.5, she is hypotensive but alert and answers all questions appropriately, she is perfusing well. she complains of terrible pain to right chest wall, has a massive hematoma Objective Exam General Appearance: mild distress (in pain) Neurologic Exam: alert, oriented x 3, cooperative Wound Assessment: Skin/Wound Assessment Wound/Incision Assessment Start: 10/20/20 17:46 Text: Status: Active Freq: Q8H Protocol: Document 10/23/20 14:00 BA (Rec: 10/23/20 14:18 BA [id number]) Wound/Incision Assessment Right Lower Wound Assessment Shift Assessment Wound Type Stasis Ulcer Wound Stage Stage III Dressing Status Dry & Intact Drainage Odor None/Absent Topical Solution/Irrigant Antibiotic Irrigant Primary Dressing Non-Adherent Gauze Pads Comment coban used to hold dressing in place. Dressing CDI. Wound Photo Photo Taken No Respiratory Exam: normal breath sounds, lungs clear, No respiratory distress Cardiovascular Exam: murmur, other (massive hematoma to right chest wall, tender, no warmth or erythema) Gastrointestinal/Abdomen Exam: soft, No tenderness, No mass Extremity Exam: normal inspection, normal range of motion OBJECTIVE DATA Vital Signs: Vital Signs - 24 hr Temp Pulse Resp BP Pulse Ox 10/23/20 17:00 81 100/32 10/23/20 16:52 82 113/70 10/23/20 16:39 74 96/35 10/23/20 16:30 82 83/39 10/23/20 16:00 97.6 F 83 79/44 100 10/23/20 15:40 90/33 10/23/20 15:29 88/42 10/23/20 15:19 74 94/48 100 10/23/20 15:00 100/52 10/23/20 14:57 92/52 10/23/20 14:45 75/55 10/23/20 14:29 89/40 10/23/20 14:20 84/49 10/23/20 14:10 87/57 10/23/20 14:01 91/65 10/23/20 14:00 18 10/23/20 13:52 91/63 10/23/20 13:43 96.8 F 76 88/47 100 10/23/20 12:34 100 10/23/20 12:00 18 10/23/20 11:48 96.7 F 79 18 79/37 95 10/23/20 10:31 87 18 76/35 98 10/23/20 10:00 85 14 100 10/23/20 08:00 16 10/23/20 07:37 100 10/23/20 07:14 98.0 F 53 L 18 109/55 100 10/23/20 05:56 90 17 10/23/20 04:32 93 H 105/47 10/23/20 04:00 97.5 F 95 H 17 89/48 100 10/23/20 02:00 80 17 10/23/20 00:00 97.5 F 88 16 112/55 95 10/22/20 22:00 81 17 110/60 97 10/22/20 19:55 97.3 F 79 16 113/51 100 10/22/20 19:30 100 10/22/20 18:00 14 10/22/20 17:43 84 16 Pain Assessment - Last Documented Pain Intensity 2 Pain Scale Used [facility] Intake and Output: Intake & Output 10/21/20 10/22/20 10/23/20 10/24/20 11:59 11:59 11:59 11:59 Intake Total 360 1582 1700 Output Total 1050 800 350 Balance -285 162 7380 Weight 88.5 kg 85.4 kg 90.2 kg Lab Results: Lab Results-Last 24 Hours 10/22/20 10/23/20 10/23/20 Range/Units 20:15 06:35 06:35 WBC 8.4 (4.0-10.5) K/mm3 RBC 2.13 L (4.1-5.4) M/mm3 Hgb 6.0 L* D (12.0-16.0) gm/dl Hct 20.3 L (35-47) % MCV 95.3 (78-100) fl MCH 28.2 (26-32) pg MCHC 29.6 L (32-36) g/dl RDW 18.6 H (11.5-14.0) % Plt Count 286 (150-450) K/mm3 MPV 8.8 (7.5-11.0) fl PT 19.6 H (9.95-12.35) SECONDS INR 1.72 (0.8-3.0) Sodium (137-145) mmol/L Potassium (3.5-5.1) mmol/L Chloride (98-107) mmol/L Carbon Dioxide (22-30) mmol/L Anion Gap (5-15) MEQ/L BUN (7-17) mg/dL Creatinine (0.52-1.04) mg/dL Estimated GFR ML/MIN Glucose (74-106) mg/dL POC Glucometer 158 H (74 to 106) mg/dL Calcium (8.4-10.2) mg/dL Total Bilirubin (0.2-1.3) mg/dL AST (14-36) U/L ALT (0-35) U/L Alkaline Phosphatase (38-126) U/L Serum Total Protein (6.3-8.2) g/dL Albumin (3.5-5.0) g/dL ABO Group Rh Factor Antibody Screen (NEGATIVE) Crossmatch (COMPATIBLE) 10/23/20 10/23/20 10/23/20 Range/Units 06:35 08:30 08:30 WBC (4.0-10.5) K/mm3 RBC (4.1-5.4) M/mm3 Hgb (12.0-16.0) gm/dl Hct (35-47) % MCV (78-100) fl MCH (26-32) pg MCHC (32-36) g/dl RDW (11.5-14.0) % Plt Count (150-450) K/mm3 MPV (7.5-11.0) fl PT (9.95-12.35) SECONDS INR (0.8-3.0) Sodium 134 L (137-145) mmol/L Potassium 4.2 (3.5-5.1) mmol/L Chloride 101 (98-107) mmol/L Carbon Dioxide 26 (22-30) mmol/L Anion Gap 11.5 (5-15) MEQ/L BUN 35 H (7-17) mg/dL Creatinine 1.26 H (0.52-1.04) mg/dL Estimated GFR 42.8 ML/MIN Glucose 160 H (74-106) mg/dL POC Glucometer (74 to 106) mg/dL Calcium 8.3 L (8.4-10.2) mg/dL Total Bilirubin 1.00 (0.2-1.3) mg/dL AST 27 (14-36) U/L ALT 12 (0-35) U/L Alkaline Phosphatase 85 (38-126) U/L Serum Total Protein 5.0 L (6.3-8.2) g/dL Albumin 2.4 L (3.5-5.0) g/dL ABO Group A Rh Factor NEGATIVE Antibody Screen NEGATIVE (NEGATIVE) Crossmatch COMPATIBLE COMPATIBLE (COMPATIBLE) 10/23/20 10/23/20 10/23/20 Range/Units 11:15 15:53 16:15 WBC (4.0-10.5) K/mm3 RBC (4.1-5.4) M/mm3 Hgb 7.5 L D (12.0-16.0) gm/dl Hct 24.2 L (35-47) % MCV (78-100) fl MCH (26-32) pg MCHC (32-36) g/dl RDW (11.5-14.0) % Plt Count (150-450) K/mm3 MPV (7.5-11.0) fl PT (9.95-12.35) SECONDS INR (0.8-3.0) Sodium (137-145) mmol/L Potassium (3.5-5.1) mmol/L Chloride (98-107) mmol/L Carbon Dioxide (22-30) mmol/L Anion Gap (5-15) MEQ/L BUN (7-17) mg/dL Creatinine (0.52-1.04) mg/dL Estimated GFR ML/MIN Glucose (74-106) mg/dL POC Glucometer 156 H 130 H (74 to 106) mg/dL Calcium (8.4-10.2) mg/dL Total Bilirubin (0.2-1.3) mg/dL AST (14-36) U/L ALT (0-35) U/L Alkaline Phosphatase (38-126) U/L Serum Total Protein (6.3-8.2) g/dL Albumin (3.5-5.0) g/dL ABO Group Rh Factor Antibody Screen (NEGATIVE) Crossmatch (COMPATIBLE) Radiology Exams: Radiology Procedures Category Date Time Status [facility] Urgent Exams 10/22/20 08:45 Completed Multi-Disciplinary Progress Notes: Multi-Disciplinary Progress Notes 10/23/20 12:35 Respiratory Note by Dory Mccabe PT'S O2 SAT DROPPED TO 86% ON ROOM AIR WHILE AT REST PER NURSE. NURSE PLACED PT ON 2LPM NASAL CANNULA. O2 SAT INCREASED TO 100%. NO SOB NOTED AT THIS TIME. Initialized on 10/23/20 12:35 - END OF NOTE Assessment/Plan (1) Hypotension Current Visit: Yes Status: Acute Assessment & Plan: receiving normal saline bolus, 1 more unit of packed red cells. 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 with positive IgG antiboides so should not be at a great risk from a covid standpoint Code(s): D62 - ACUTE POSTHEMORRHAGIC ANEMIA (3) UTI (urinary tract infection) Current Visit: Yes Status: Acute Code(s): N39.0 - URINARY TRACT INFECTION, SITE NOT SPECIFIED (4) COVID-19 Current Visit: Yes Status: Acute Code(s): U07.1 - COVID-19 (5) Weakness Current Visit: Yes Status: Acute Code(s): R53.1 - WEAKNESS (6) CHF (congestive heart failure) Current Visit: No Status: Chronic Qualifiers: Code(s): I50.9 - HEART FAILURE, UNSPECIFIED (7) CKD (chronic kidney disease) Current Visit: No Status: Chronic Code(s): N18.9 - CHRONIC KIDNEY DISEASE, UNSPECIFIED (8) Diabetes type 2 with atherosclerosis of arteries of extremities Current Visit: No Status: Chronic Code(s): E11.59 - TYPE 2 DIABETES MELLITUS WITH OTH CIRCULATORY COMPLICATIONS; I70.209 - UNSP ATHSCL [place] ARTERIES OF EXTREMITIES, UNSP EXTREMITY
[2020-10-23] MEDS ORDERED: Sodium Chloride 0.9% 500 ML 500 ML IV SCH (18:00)
[2020-10-23 18:17] LABS: CROSS MATCH (PRBC) COMPATIBLE (COMPATIBLE)
[2020-10-23] MEDS: Colace 100 MG PO SCH (20:59)
[2020-10-23] MEDS ORDERED: ENOXAPARIN SODIUM SQ SCH (22:00)
[2020-10-23 22:53] LABS: Hematocrit 27.4 % (35-47); Hemoglobin 8.6 gm/dl (12.0-16.0)
[2020-10-24 05:23] LABS: Hematocrit 23.6 % (35-47); Hemoglobin 7.6 gm/dl (12.0-16.0); Mean Cell Volume 91.1 fl (78-100); Mean Corpuscular Hemoglobin 29.3 pg (26-32); Mean Corpuscular Hgb Concent. 32.2 g/dl (32-36); Platelet Count 198 K/mm3 (150-450); Red Blood Count 2.59 M/mm3 (4.1-5.4); Red Cell Distribution Width 17.3 % (11.5-14.0); White Blood Count 14.8 K/mm3 (4.0-10.5)
[2020-10-24 05:45] LABS: ALBUMIN 2.1 g/dL (3.5-5.0); ANION GAP 12.2 MEQ/L (5-15); BILIRUBIN,TOTAL 1.1 mg/dL (0.2-1.3); Calcium 7.8 mg/dL (8.4-10.2); Creatinine 1 1.45 mg/dL (0.52-1.04); EST GLOMERULAR FILTRATION RATE 36.4 ML/MIN; Potassium 4.6 mmol/L (3.5-5.1); Total Protein 4.4 g/dL (6.3-8.2)
[2020-10-24] MEDS: Sodium Chloride 0.9% 1000 ML 1,000 ML IV SCH ×2 (06:00→20:33)
[2020-10-24] MEDS: Glucophage 500 MG PO SCH ×2 (08:16→16:50)
[2020-10-24] MEDS: SYNTHROID 25 MCG PO SCH (10:21)
[2020-10-24] MEDS: VITAMIN D PO SCH (10:21)
[2020-10-24] MEDS: THERAGRAN MULTIVITAMIN PO SCH (10:21)
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
[2020-10-24 13:44] LABS: INR 1.57 (0.8-3.0); PROTIME 17.8 SECONDS (9.95-12.35)
[2020-10-24] MEDS: Invanz 1 GM*** 1 G in Sodium Chloride 100ML MINI-BAG PLUS 100 ML IV SCH (16:50)
[2020-10-24] MEDS: Colace 100 MG PO SCH (21:03)
[2020-10-25 05:27] LABS: Hematocrit 23.2 % (35-47); Mean Cell Volume 103.1 fl (78-100); Mean Corpuscular Hemoglobin 28.4 pg (26-32); Mean Corpuscular Hgb Concent. 27.6 g/dl (32-36); Mean Platelet Volume 9.9 fl (7.5-11.0); Platelet Count 224 K/mm3 (150-450); Red Blood Count 2.25 M/mm3 (4.1-5.4); Red Cell Distribution Width 18.7 % (11.5-14.0); White Blood Count 21.3 K/mm3 (4.0-10.5)
[2020-10-25] MEDS ORDERED: SODIUM CHLORIDE 0.9% IV SCH (05:30)
[2020-10-25 05:37] LABS: Hemoglobin 6.4 gm/dl (12.0-16.0)
[2020-10-25 07:49] LABS: ABO TYPING A; Antibody Screen NEGATIVE (NEGATIVE); RH TYPING NEGATIVE
[2020-10-25 07:51] LABS: CROSS MATCH (PRBC) COMPATIBLE (COMPATIBLE)
[2020-10-25 07:52] LABS: Slide Review YES
[2020-10-25] MEDS: Glucophage 500 MG PO SCH ×2 (08:19→16:38)
[2020-10-25] MEDS: Sodium Chloride 0.9% 1000 ML 1,000 ML IV SCH (08:58)
[2020-10-25] MEDS: VITAMIN D PO SCH (09:04)
[2020-10-25] MEDS: THERAGRAN MULTIVITAMIN PO SCH (09:04)
[2020-10-25] MEDS: SYNTHROID 25 MCG PO SCH (09:05)
[2020-10-25] MEDS ORDERED: Lasix 20 MG/2 ML IV PRN (09:32)
[2020-10-25] MEDS: Dulcolax 10 MG SUPP PR PRN (09:49)
[2020-10-25] MEDS ORDERED: Lasix 40 MG/4 ML IV PRN (12:55)
[2020-10-25] MEDS: Vitamin K 10 MG/ML PO SCH (13:06)
[2020-10-25 16:00] LABS: Hematocrit 25.5 % (35-47)
[2020-10-25] MEDS: Invanz 1 GM*** 1 G in Sodium Chloride 100ML MINI-BAG PLUS 100 ML IV SCH (16:38)
[2020-10-25] MEDS: Colace 100 MG PO SCH (22:17)
[2020-10-26 04:58] LABS: Hematocrit 25.8 % (35-47); Hemoglobin 8.1 gm/dl (12.0-16.0); Mean Cell Volume 87.8 fl (78-100); Mean Corpuscular Hemoglobin 27.6 pg (26-32); Mean Corpuscular Hgb Concent. 31.4 g/dl (32-36); Mean Platelet Volume 9.1 fl (7.5-11.0); Platelet Count 199 K/mm3 (150-450); Red Blood Count 2.94 M/mm3 (4.1-5.4); Red Cell Distribution Width 20.6 % (11.5-14.0)
[2020-10-26] MEDS: Sodium Chloride 0.9% 1000 ML 1,000 ML IV SCH (05:06)
[2020-10-26 05:16] LABS: INR 1.52 (0.8-3.0); PROTIME 17.2 SECONDS (9.95-12.35)
[2020-10-26 05:43] LABS: ALBUMIN 2.2 g/dL (3.5-5.0); ANION GAP 11.6 MEQ/L (5-15); BILIRUBIN,TOTAL 1.8 mg/dL (0.2-1.3); Calcium 7.7 mg/dL (8.4-10.2); Creatinine 1 1.87 mg/dL (0.52-1.04); EST GLOMERULAR FILTRATION RATE 27.1 ML/MIN; Potassium 4.3 mmol/L (3.5-5.1); Total Protein 4.6 g/dL (6.3-8.2)
[2020-10-26 06:41] LABS: BAND 1 % (0.0-2.0); Lymphocytes 6 % (24-44); Monocyte 7 % (0.0-12.0); Neutrophils 86 % (36.0-66.0); Platelet Estimate NORMAL (NORMAL); Total Cells Counted 100
[2020-10-26] MEDS: Glucophage 500 MG PO SCH ×2 (08:23→17:52)
--- NOTE | 2020-10-26 09:27 | PROG NOTE ---
PROBLEMS: Failure to thrive, large hematoma of the chest, aortic insufficiency, mild renal insufficiency, confusion, history of urinary tract infection, controlled atrial fibrillation. HISTORY: I saw her for the first time in three years yesterday on rounds. She had already been taken off of all her anticoagulation due to large hematoma on her right chest which is firm. It does not look like it has extended any today. Chest had few crackles. Heart sounds with a blowing murmur left sternal border into the neck. Creatinine was 1.45. Hemoglobin was 15 twenty-four hours ago. She is off of antibiotics. No signs of infection. No fever. No chills. No open bad looking wounds. Urine is clear, did not grow anything. This morning her white count came up to 16,000 and her hemoglobin went down to 6.4. There was no obvious bleeding but there is the obviously large hematoma of her chest. I do not think she is a very good surgical candidate and it would take some extreme exploring to get to find probably a small arteriole tear. PLAN: Will go ahead and give her two more units of packed cells with some 20 of Lasix in between. She was awake and we had a nice talk. She has known me for many years, talked about motorcycles. I called her son and told him that we were going to place her on the floor as a No Code. He said that is what she wants, Hospice care. Dr. Acuna is on board with all of that. She has been notified. She is comfortable now and stable. PROGNOSIS: Poor. She may get well enough to send back to [facility].
[2020-10-26] MEDS: VITAMIN D PO SCH (10:26)
[2020-10-26] MEDS: SYNTHROID 25 MCG PO SCH (10:26)
[2020-10-26] MEDS: THERAGRAN MULTIVITAMIN PO SCH (10:27)
[2020-10-26] MEDS: Vitamin K 10 MG/ML PO SCH (10:28)
[2020-10-26] MEDS: Invanz 1 GM*** 1 G in Sodium Chloride 100ML MINI-BAG PLUS 100 ML IV SCH (17:52)
[2020-10-26] MEDS: Coreg 3.125 MG PO SCH (21:09)
[2020-10-26] MEDS: Colace 100 MG PO SCH (21:09)
--- NOTE | 2020-10-26 23:34 | PCM.SSS ---
History of Present Illness - Chief Complaint Chief Complaint: UTI failed outpatient, COVID + History of Present Illness: is a 85 year old female transferred today from Covid Unit to [facility]. Patient developed a large traumatic hematoma 10/22/2020 presumably from a fall where her knees gave way and she fell into the nurse on . She is exanguinating into right axilla and right torso requiring blood transfusion and monitoring. She is on Ertapenem for E.Coli UTI reculture shows "no growth "so far. WBC was 21,000 now down to 11,000. Patient's son,Urbano and his Sue and I met at the bedside to disuss what was needed to properly care for Rhea. I reviewed previous records re her valvular heart dz where Dr Ruano,Vice President Of Sales had advised against TAVR due to severe mitral valve calcification.Urbano wanted to be sure about any other treatment of her heart valve dz.I reviewed her 2019 ECHO with him and he understood that no proceedure was advised. He also wanted Dr Graham to evaluate the Hematoma and Surgical consult was done with "no surgical intervention advisd". - Review of Systems Eyes: No Symptoms Ears, Nose, & Throat: No Symptoms Respiratory: Orthopnea (has not been out of bed due to Hematoma and Hx knees gave out when standing and she fell ) Cardiac: Edema (ankles) Abdominal/Gastrointestinal: Constipation (no abdominal pain) Genitourinary Symptoms: Incontinence (indwelling mtathew) Musculoskeletal: Fall (10/21/2020,is at bedrest for now), Other Skin: Other (large hematlarge hematoma right axilla down axilarry line,nurse from Covid unit states it is half the size compaired to when on Covid unit. secondary RUE edema) Psychological: Other (patient is strong willed and wants PT ALYSSA to be able to regain strength. ) Hematologic/Lymphatic: Anemia Medications & Allergies Home Medications: Home Medication List Docusate Sodium 100 mg [Colace 100 MG] 1 cap PO QHS 08/17/20 [History Confirmed 10/16/20] Levothyroxine Sodium 25 Mcg [Synthroid 25 Mcg] 1 tab PO DAILY 08/17/20 [History Confirmed 10/16/20] Metformin HCl 500 mg PO BID 08/17/20 [History Confirmed 10/16/20] Multivitamin/Iron/Folic Acid [Centrum Adults Tablet] 1 tablet PO DAILY 08/17/20 [History Confirmed 10/16/20] Bumetanide 1 mg [Bumex 1 mg] 0.5 tab PO DAILY 10/16/20 [History Confirmed 10/16/20] Tramadol HCl 50 mg [Ultram 50 mg] 100 mg PO BID 10/16/20 [History Confirmed 10/16/20] Bisacodyl 10 mg [Dulcolax 10 MG SUPP] 10 mg WA DAILY supp.rect 10/28/20 [ Rx] Carvedilol 3.125 mg [Coreg 3.125 MG] 3.125 mg PO BID #60 tablet 10/28/20 [Rx] Cholecalciferol (Vitamin D3) [Vitamin D] 2,000 unit PO DAILY tablet 10/28/20 [Rx] Allergies/Adverse Reactions: Allergies Allergy/AdvReac Type Severity Reaction Status Date / Time cephalexin [From Keflex] Allergy Intermediate Verified 10/16/20 16:15 - Past Medical History Past Medical History: Yes Neurological History: Dementia ENT History: Cataracts Cardiac History: Angina, Congestive Heart Failure, Hypertension, Myocardial Infarction (MT) Respiratory History: Bronchitis Endocrine Medical History: Diabetes Type II Musculoskelatal History: Arthritis, Osteoporosis GI Medical History: Gallbladder Disease, Hernia History: Renal Disease Pyscho-Social History: No Pertinent History Reproductive Disorders: Fibroids Comment: anemia - Female History Are you now?: No - Past Surgical History Past Surgical History: Yes Neuro Surgical History: No Pertinent History Cardiac History: Cardiac Catheterization, Cardiac Stent Respiratory Surgery: No Pertinent History GI Surgical History: Cholecystectomy, Hernia Repair Genitourinary Surgical Hx: No Pertinent History Musculskeletal Surgical Hx: No Pertinent History Female Surgical History: Hysterectomy Other Surgical History: cardic stent x 2 - Social History Smoking Status: Never smoker How long have you smoked: "years" Exposure to second hand smoke: No Alcohol: None Drug Use: none - Physical Exam Vital Signs: Vital Signs - 24 hr Temp Pulse Resp BP Pulse Ox 10/26/20 20:00 98.7 F 98 H 24 117/59 97 10/26/20 16:00 97.9 F 92 H 21 117/62 97 10/26/20 11:47 97.7 F 99 H 18 108/44 97 10/26/20 07:48 97.9 F 91 H 20 118/53 96 10/26/20 04:09 97.4 F 84 16 99/43 97 10/25/20 23:27 98.2 F 85 18 96/54 98 General Appearance: alert (NAD is asking to sit on bedside commode to have a BM but 2 nurses present to put her on the bedpan.), anxiety (patient jumps anywhere I lightly touch her) Neurologic Exam: alert, oriented x 3, normal mood/affect Eye Exam: eyes nml inspection Ears, Nose, Throat Exam: normal ENT inspection Neck Exam: normal inspection Cardiovascular Exam: murmur, irregular (rate 90s) Gastrointestinal/Abdomen Exam: soft (nontender ,BS present Left) Rectal Exam: other (brown stool in rectal vault patient refused rectal to diimpact but agrees to a suppository) Back Exam: other (no CVA tenderness) Extremity Exam: other (trace pedal edema ,healing wound -chronic clean dressing) Wound Assessment: Skin/Wound Assessment Wound/Incision Assessment Start: 10/20/20 17:46 Text: Status: Active Freq: Q8H Protocol: Document 10/26/20 14:00 HN (Rec: 10/26/20 15:47 HN [id number]) Wound/Incision Assessment Right Lower Wound Assessment Shift Assessment Wound Type Pressure Ulcer Dressing Status Changed Drainage Amount Minimal Results - Labs Lab/Micro Results: Lab Results-Last 24 Hours 10/26/20 10/26/20 10/26/20 Range/Units 04:42 04:42 04:42 WBC 16.0 H (4.0-10.5) K/mm3 RBC 2.94 L (4.1-5.4) M/mm3 Hgb 8.1 L (12.0-16.0) gm/dl Hct 25.8 L (35-47) % MCV 87.8 D (78-100) fl MCH 27.6 (26-32) pg MCHC 31.4 L (32-36) g/dl RDW 20.6 H (11.5-14.0) % Plt Count 199 (150-450) K/mm3 MPV 9.1 (7.5-11.0) fl Segmented Neutrophils 86 H (36.0-66.0) % Band Neutrophils 1 (0.0-2.0) % Lymphocytes (Manual) 6 L (24-44) % Monocytes (Manual) 7 (0.0-12.0) % Platelet Estimate NORMAL (NORMAL) RBC Morphology NORMAL PT 17.2 H (9.95-12.35) SECONDS INR 1.52 (0.8-3.0) Sodium 135 L (137-145) mmol/L Potassium 4.3 (3.5-5.1) mmol/L Chloride 105 (98-107) mmol/L Carbon Dioxide 22 (22-30) mmol/L Anion Gap 11.6 (5-15) MEQ/L BUN 59 H (7-17) mg/dL Creatinine 1.87 H (0.52-1.04) mg/dL Estimated GFR 27.1 ML/MIN Glucose 120 H (74-106) mg/dL POC Glucometer (74 to 106) mg/dL Calcium 7.7 L (8.4-10.2) mg/dL Total Bilirubin 1.80 H (0.2-1.3) mg/dL AST 69 H (14-36) U/L ALT 23 (0-35) U/L Alkaline Phosphatase 75 (38-126) U/L Serum Total Protein 4.6 L (6.3-8.2) g/dL Albumin 2.2 L (3.5-5.0) g/dL 10/26/20 10/26/20 10/26/20 Range/Units 07:27 11:14 16:14 WBC (4.0-10.5) K/mm3 RBC (4.1-5.4) M/mm3 Hgb (12.0-16.0) gm/dl Hct (35-47) % MCV (78-100) fl MCH (26-32) pg MCHC (32-36) g/dl RDW (11.5-14.0) % Plt Count (150-450) K/mm3 MPV (7.5-11.0) fl Segmented Neutrophils (36.0-66.0) % Band Neutrophils (0.0-2.0) % Lymphocytes (Manual) (24-44) % Monocytes (Manual) (0.0-12.0) % Platelet Estimate (NORMAL) RBC Morphology PT (9.95-12.35) SECONDS INR (0.8-3.0) Sodium (137-145) mmol/L Potassium (3.5-5.1) mmol/L Chloride (98-107) mmol/L Carbon Dioxide (22-30) mmol/L Anion Gap (5-15) MEQ/L BUN (7-17) mg/dL Creatinine (0.52-1.04) mg/dL Estimated GFR ML/MIN Glucose (74-106) mg/dL POC Glucometer 102 88 108 H (74 to 106) mg/dL Calcium (8.4-10.2) mg/dL Total Bilirubin (0.2-1.3) mg/dL AST (14-36) U/L ALT (0-35) U/L Alkaline Phosphatase (38-126) U/L Serum Total Protein (6.3-8.2) g/dL Albumin (3.5-5.0) g/dL 10/26/20 Range/Units 21:05 WBC (4.0-10.5) K/mm3 RBC (4.1-5.4) M/mm3 Hgb (12.0-16.0) gm/dl Hct (35-47) % MCV (78-100) fl MCH (26-32) pg MCHC (32-36) g/dl RDW (11.5-14.0) % Plt Count (150-450) K/mm3 MPV (7.5-11.0) fl Segmented Neutrophils (36.0-66.0) % Band Neutrophils (0.0-2.0) % Lymphocytes (Manual) (24-44) % Monocytes (Manual) (0.0-12.0) % Platelet Estimate (NORMAL) RBC Morphology PT (9.95-12.35) SECONDS INR (0.8-3.0) Sodium (137-145) mmol/L Potassium (3.5-5.1) mmol/L Chloride (98-107) mmol/L Carbon Dioxide (22-30) mmol/L Anion Gap (5-15) MEQ/L BUN (7-17) mg/dL Creatinine (0.52-1.04) mg/dL Estimated GFR ML/MIN Glucose (74-106) mg/dL POC Glucometer 125 H (74 to 106) mg/dL Calcium (8.4-10.2) mg/dL Total Bilirubin (0.2-1.3) mg/dL AST (14-36) U/L ALT (0-35) U/L Alkaline Phosphatase (38-126) U/L Serum Total Protein (6.3-8.2) g/dL Albumin (3.5-5.0) g/dL Microbiology 10/25/20 00:04 Urine Culture - Final Urine, Indwelling Catheter NO GROWTH 10/19/20 05:06 Urine Culture - Final Urine, Catheterized NO GROWTH 10/16/20 22:38 Urine Culture - Final Urine, Indwelling Catheter NO GROWTH Accuchecks Date 10/26/20 Date 10/26/20 Date 10/26/20 Assessment/Plan (1) Anemia associated with acute blood loss Current Visit: Yes Status: Acute Assessment & Plan: monitor H/H,anticipate need to transfuse 1-2 more units prior to transfer to [facility]. Code(s): D62 - ACUTE POSTHEMORRHAGIC ANEMIA (2) Weakness Current Visit: Yes Status: Chronic Assessment & Plan: gradual loss of strength in upper and lower extremities Code(s): R53.1 - WEAKNESS (3) Hematoma Current Visit: Yes Status: Acute Assessment & Plan: surgical consult appreciated. Dr Graham advises no surgical intervention. Code(s): T14.8XXA - OTHER INJURY OF UNSPECIFIED BODY REGION, INITIAL ENCOUNTER (4) UTI (urinary tract infection) Current Visit: Yes Status: Acute Qualifiers: Indwelling urinary catheter type: indwelling urethral catheter Assessment & Plan: resolved on Ertapenem,Ecoli grew from outpatient UA Code(s): N39.0 - URINARY TRACT INFECTION, SITE NOT SPECIFIED (5) Valvular heart disease Current Visit: Yes Status: Chronic Assessment & Plan: moderate , severe Mitral valve calcification-per son patient refused intervention when it was advised years ago (6) Hypotension Current Visit: Yes Status: Acute Qualifiers: Hypotension type: unspecified hypotension type Qualified Code(s): I95.9 - Hypotension, unspecified Assessment & Plan: due to acute blood loss -stable. Coreg is held if B/P <105/65 Code(s): I95.9 - HYPOTENSION, UNSPECIFIED (7) HTN (hypertension) Current Visit: No Status: Chronic Code(s): I10 - ESSENTIAL (PRIMARY) HYPERTENSION Hospital Summary - Hospital Course Hospital Course: Patient is on Medsurg for a short stay post long stay in the Covid unit. 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 Patient is anxious to get back to [facility] for her ongoing care. - Vitals & Intake/Output Vital Signs: Vital Signs Temperature 98.7 F 10/26/20 20:00 Pulse Rate 98 H 10/26/20 20:00 Respiratory Rate 24 10/26/20 20:00 Blood Pressure 117/59 10/26/20 20:00 O2 Sat by Pulse Oximetry 97 10/26/20 20:00 Intake & Output: Intake & Output 10/24/20 10/25/20 10/26/20 10/27/20 11:59 11:59 11:59 11:59 Intake Total 3048 1917 2630 120 Output Total 300 955 507 8076 Balance 2748 1792 1830 -1080 Weight 94.5 kg 92.3 kg 92.9 kg - Lab Result Diagrams: 10/28/20 02:40 10/28/20 02:40 Lab Results-Last 24 Hrs: Lab Results-Last 24 Hours 10/26/20 10/26/20 10/26/20 Range/Units 04:42 04:42 04:42 WBC 16.0 H (4.0-10.5) K/mm3 RBC 2.94 L (4.1-5.4) M/mm3 Hgb 8.1 L (12.0-16.0) gm/dl Hct 25.8 L (35-47) % MCV 87.8 D (78-100) fl MCH 27.6 (26-32) pg MCHC 31.4 L (32-36) g/dl RDW 20.6 H (11.5-14.0) % Plt Count 199 (150-450) K/mm3 MPV 9.1 (7.5-11.0) fl Segmented Neutrophils 86 H (36.0-66.0) % Band Neutrophils 1 (0.0-2.0) % Lymphocytes (Manual) 6 L (24-44) % Monocytes (Manual) 7 (0.0-12.0) % Platelet Estimate NORMAL (NORMAL) RBC Morphology NORMAL PT 17.2 H (9.95-12.35) SECONDS INR 1.52 (0.8-3.0) Sodium 135 L (137-145) mmol/L Potassium 4.3 (3.5-5.1) mmol/L Chloride 105 (98-107) mmol/L Carbon Dioxide 22 (22-30) mmol/L Anion Gap 11.6 (5-15) MEQ/L BUN 59 H (7-17) mg/dL Creatinine 1.87 H (0.52-1.04) mg/dL Estimated GFR 27.1 ML/MIN Glucose 120 H (74-106) mg/dL POC Glucometer (74 to 106) mg/dL Calcium 7.7 L (8.4-10.2) mg/dL Total Bilirubin 1.80 H (0.2-1.3) mg/dL AST 69 H (14-36) U/L ALT 23 (0-35) U/L Alkaline Phosphatase 75 (38-126) U/L Serum Total Protein 4.6 L (6.3-8.2) g/dL Albumin 2.2 L (3.5-5.0) g/dL 10/26/20 10/26/20 10/26/20 Range/Units 07:27 11:14 16:14 WBC (4.0-10.5) K/mm3 RBC (4.1-5.4) M/mm3 Hgb (12.0-16.0) gm/dl Hct (35-47) % MCV (78-100) fl MCH (26-32) pg MCHC (32-36) g/dl RDW (11.5-14.0) % Plt Count (150-450) K/mm3 MPV (7.5-11.0) fl Segmented Neutrophils (36.0-66.0) % Band Neutrophils (0.0-2.0) % Lymphocytes (Manual) (24-44) % Monocytes (Manual) (0.0-12.0) % Platelet Estimate (NORMAL) RBC Morphology PT (9.95-12.35) SECONDS INR (0.8-3.0) Sodium (137-145) mmol/L Potassium (3.5-5.1) mmol/L Chloride (98-107) mmol/L Carbon Dioxide (22-30) mmol/L Anion Gap (5-15) MEQ/L BUN (7-17) mg/dL Creatinine (0.52-1.04) mg/dL Estimated GFR ML/MIN Glucose (74-106) mg/dL POC Glucometer 102 88 108 H (74 to 106) mg/dL Calcium (8.4-10.2) mg/dL Total Bilirubin (0.2-1.3) mg/dL AST (14-36) U/L ALT (0-35) U/L Alkaline Phosphatase (38-126) U/L Serum Total Protein (6.3-8.2) g/dL Albumin (3.5-5.0) g/dL 10/26/20 Range/Units 21:05 WBC (4.0-10.5) K/mm3 RBC (4.1-5.4) M/mm3 Hgb (12.0-16.0) gm/dl Hct (35-47) % MCV (78-100) fl MCH (26-32) pg MCHC (32-36) g/dl RDW (11.5-14.0) % Plt Count (150-450) K/mm3 MPV (7.5-11.0) fl Segmented Neutrophils (36.0-66.0) % Band Neutrophils (0.0-2.0) % Lymphocytes (Manual) (24-44) % Monocytes (Manual) (0.0-12.0) % Platelet Estimate (NORMAL) RBC Morphology PT (9.95-12.35) SECONDS INR (0.8-3.0) Sodium (137-145) mmol/L Potassium (3.5-5.1) mmol/L Chloride (98-107) mmol/L Carbon Dioxide (22-30) mmol/L Anion Gap (5-15) MEQ/L BUN (7-17) mg/dL Creatinine (0.52-1.04) mg/dL Estimated GFR ML/MIN Glucose (74-106) mg/dL POC Glucometer 125 H (74 to 106) mg/dL Calcium (8.4-10.2) mg/dL Total Bilirubin (0.2-1.3) mg/dL AST (14-36) U/L ALT (0-35) U/L Alkaline Phosphatase (38-126) U/L Serum Total Protein (6.3-8.2) g/dL Albumin (3.5-5.0) g/dL Micro Results-Entire Visit: Microbiology 10/25/20 00:04 Urine Culture - Final Urine, Indwelling Catheter NO GROWTH 10/19/20 05:06 Urine Culture - Final Urine, Catheterized NO GROWTH 10/16/20 22:38 Urine Culture - Final Urine, Indwelling Catheter NO GROWTH Accuchecks Date 10/26/20 Date 10/26/20 Date 10/26/20 - Procedures and Test Procedures and Tests throughout Hospitalization: Therapy Orders & Screens 10/19/20 18:48 PT Eval & Treat ( Order) ONCE Reason for Eval:: weakness Diagnosis: UTI failed outpatient, COVID + 10/23/20 12:34 Oxygen NASAL CANNULA 2 lpm Comment: Diagnosis: UTI failed outpatient, COVID + - Discharge Disposition: [place] TO [facility] Condition: Fair Prescriptions: New Carvedilol 3.125 mg [Coreg 3.125 MG] 3.125 mg PO BID #60 tablet Bisacodyl 10 mg [Dulcolax 10 MG SUPP] 10 mg WA DAILY supp.rect Cholecalciferol (Vitamin D3) [Vitamin D] 2,000 unit PO DAILY tablet Continue Metformin HCl 500 mg PO BID Levothyroxine Sodium 25 Mcg [Synthroid 25 Mcg] 1 tab PO DAILY Docusate Sodium 100 mg [Colace 100 MG] 1 cap PO QHS Multivitamin/Iron/Folic Acid [Centrum Adults Tablet] 1 tablet PO DAILY Bumetanide 1 mg [Bumex 1 mg] 0.5 tab PO DAILY Tramadol HCl 50 mg [Ultram 50 mg] 100 mg PO BID Discontinued Carvedilol 12.5 mg [Coreg 12.5 mg] 6.25 mg PO BID Insulin Aspart [Novolog] 1 units SQ ACHS PRN PRN Reason: Hyperglycemia Aspirin EC 81 mg [Ecotrin 81 mg] 81 mg PO DAILY Follow up with: KAY LONG DO [Primary Care Provider] -
[2020-10-27] MEDS: Sodium Chloride 0.9% 1000 ML 1,000 ML IV SCH (05:12)
[2020-10-27 05:33] LABS: ALBUMIN 2.2 g/dL (3.5-5.0); ANION GAP 8.6 MEQ/L (5-15); BILIRUBIN,TOTAL 1.8 mg/dL (0.2-1.3); Calcium 7.9 mg/dL (8.4-10.2); Creatinine 1 1.62 mg/dL (0.52-1.04); Potassium 4.1 mmol/L (3.5-5.1); Total Protein 4.8 g/dL (6.3-8.2)
[2020-10-27] MEDS: Glucophage 500 MG PO SCH ×2 (08:19→18:45)
[2020-10-27] MEDS: THERAGRAN MULTIVITAMIN PO SCH (10:04)
[2020-10-27] MEDS: VITAMIN D PO SCH (10:04)
[2020-10-27] MEDS: SYNTHROID 25 MCG PO SCH (10:04)
[2020-10-27] MEDS: Vitamin K 10 MG/ML PO SCH (10:06)
[2020-10-27] MEDS: BUMEX 1 MG PO SCH (10:06)
[2020-10-27] MEDS: Coreg 3.125 MG PO SCH ×2 (10:40→21:40)
[2020-10-27 12:00] LABS: Absolute Neutrophil Ct (ANC) 9.28 (1.4-6.9); BASOPHIL % 0.1 % (0.0-0.4); Basophil (Absolute #) 0.01 (0-0.4); Eosinophil % 1.4 % (0.00-5.0); Eosinophil (Absolute #) 0.16 (0-0.5); Hematocrit 24.1 % (35-47); Hemoglobin 7.3 gm/dl (12.0-16.0); Lymphocyte (Absolute #) 1.36 (1.0-4.6); Lymphocytes % 11.7 % (24.0-44.0); Mean Cell Volume 92.3 fl (78-100); Mean Corpuscular Hgb Concent. 30.3 g/dl (32-36); Monocyte (Absolute #) 0.82 (0.0-1.3); Monocytes % 7.1 % (0.0-12.0); Neutrophil % 79.7 % (36.0-66.0); Platelet Count 183 K/mm3 (150-450); Red Blood Count 2.61 M/mm3 (4.1-5.4); Red Cell Distribution Width 21.7 % (11.5-14.0); White Blood Count 11.6 K/mm3 (4.0-10.5)
--- NOTE | 2020-10-27 12:08 | CONS ---
CONSULT DATE: 10/27/2020 REASON FOR CONSULT: Hematoma of chest wall. HISTORY: The patient recently had a hematoma fairly large right anterior chest wall comes down the right lower chest through the flank and on to the pelvis. Most of the hematoma is at the top and the rest of it is predominantly ecchymosis. It is already a little softer today. There is nothing tense or something that absolutely needs evacuation. She is 85 years old. She is quite fragile. She does not need any additional anesthetics. I think observation only is in order. It should do satisfactory.
[2020-10-27] MEDS: Dulcolax 10 MG SUPP PR SCH (12:53)
[2020-10-27 14:46] LABS: Slide Review 1 YES
[2020-10-27] MEDS: Invanz 1 GM*** 1 G in Sodium Chloride 100ML MINI-BAG PLUS 100 ML IV SCH (16:29)
[2020-10-27 16:31] LABS: ABO TYPING A; Antibody Screen NEGATIVE (NEGATIVE); RH TYPING NEGATIVE
[2020-10-27 16:32] LABS: CROSS MATCH (PRBC) COMPATIBLE (COMPATIBLE)
[2020-10-27] MEDS ORDERED: Lasix 20 MG/2 ML IV PRN (19:29)
[2020-10-27] MEDS: Colace 100 MG PO SCH (21:40)
[2020-10-28 03:01] LABS: Hematocrit 30.9 % (35-47); Hemoglobin 9.5 gm/dl (12.0-16.0)
[2020-10-28 03:23] LABS: ALBUMIN 2.5 g/dL (3.5-5.0); ANION GAP 11.3 MEQ/L (5-15); BILIRUBIN,TOTAL 1.7 mg/dL (0.2-1.3); Calcium 8.2 mg/dL (8.4-10.2); Creatinine 1 1.41 mg/dL (0.52-1.04); EST GLOMERULAR FILTRATION RATE 37.6 ML/MIN; Total Protein 5.1 g/dL (6.3-8.2)
[2020-10-28] MEDS: Sodium Chloride 0.9% 1000 ML 1,000 ML IV SCH (06:47)
[2020-10-28 06:48] VITALS: BP 119/55; PULSE 88; O2SAT 99
[2020-10-28] MEDS: VITAMIN D PO SCH (09:07)
[2020-10-28] MEDS: SYNTHROID 25 MCG PO SCH (09:07)
[2020-10-28] MEDS: BUMEX 1 MG PO SCH (09:07)
[2020-10-28] MEDS: Glucophage 500 MG PO SCH (09:07)
[2020-10-28] MEDS: THERAGRAN MULTIVITAMIN PO SCH (09:07)
[2020-10-28] MEDS: Dulcolax 10 MG SUPP PR SCH (09:08)
[2020-10-28] MEDS: Vitamin K 10 MG/ML PO SCH (09:08)
[2020-10-28] MEDS: Coreg 3.125 MG PO SCH (09:08)
== END 2020-10-28 10:24 | DRG 811 ==
LOC: MED SURG 15:05
PROVIDERS: ADMIT Family Medicine; ATTEND Family Medicine
DX: D62 Acute posthemorrhagic anemia (principal); U07.1 COVID-19; N39.0 Urinary tract infection, site not specified; I13.0 Hypertensive heart and chronic kidney disease with heart failure and stage 1 through stage 4 chronic kidney disease, or unspecified chronic kidney disease; E11.22 Type 2 diabetes mellitus with diabetic chronic kidney disease; N18.9 Chronic kidney disease, unspecified; I50.9 Heart failure, unspecified; R53.1 Weakness; E11.51 Type 2 diabetes mellitus with diabetic peripheral angiopathy without gangrene; S20.219A Contusion of unspecified front wall of thorax, initial encounter; Z79.899 Other long term (current) drug therapy; G72.9 Myopathy, unspecified; W05.0XXA Fall from non-moving wheelchair, initial encounter; Y92.230 Patient room in hospital as the place of occurrence of the external cause; Z79.82 Long term (current) use of aspirin; R62.7 Adult failure to thrive; R41.0 Disorientation, unspecified
CPT/HCPCS: 36415; 36430; 73060; 80048; 80053; 81001; 82947; 84443; 85014; 85018; 85025; 85027; 85379; 85610; 86769; 86850; 86900; 86901; 86922; 87086; 94760; 94762; G0328; P9016; 82274; J1100; J1335; J1650; J1817; J1940; J2270; J3430; A9270-GY